=== PATIENT | male | born 1955 | race Caucasian/White ===

== ENCOUNTER → 2022-05-19 10:58 | Outpatient (BNVA) | payer SELFPAY | PROVIDERS: Visit Provider Physician Assistant | DX: Z02.79 Encounter for issue of other medical certificate (principal) ==

== ENCOUNTER 2023-03-22 10:58 | Outpatient (AMB) | payer MEDICARE, SELFPAY ==
--- NOTE | 2023-03-22 12:07 | MHC.OFFWIV ---
Intake Vital Signs 03/22/23 12:08 Height 5 ft 10 in Weight 199 lb BMI 28.6 BP 130/80 Blood Pressure Location Rt brachial Position Sitting Pulse 90 Temp 96.7 F L Temp Source Temporal Artery Scan Pulse Oximetry (%) 97 Oxygen Delivery Method Room Air Intake Visit Reasons: EP dog bite Rt calf Intake Note: pt is here today for dog bit on rt calf yesterday Patient Tobacco Use Status: Never used Tobacco Allergies No Known Allergies Allergy (Verified 03/22/23 12:08) Do you need a note to return to daycare/school/sports/work: No HPI HPI Comments History of Present Illness Details Patient is a 67-year-old male in today following a dog bite to his right calf. Patient states that the dog bite happened 1 day prior to arrival. Denies any tingling or numbness to the area, denies any erythema or recent fevers. The dog was his neighbor's dog that is reported to be up-to-date on all of its immunizations shots. Denies any nausea, vomiting, diarrhea, chest pain, or shortness of breath. Patient has a dime sized superficial laceration to the lateral aspect of the gastrocnemius muscle. No discharge from the wound. Edge of the wound or well demarcated. No erythema or edema. Will prescribe Bactrim and give Tdap in office. Patient has been educated on side effects of the medication, and that he should take the entire course of antibiotics. Patient has been educated and when to return to the ER when to present to the emergency room. [facility] Social History Patient Tobacco Use Status: Never used Tobacco Review of Systems Const All systems reviewed & are unremarkable except as noted in HPI and below Denies weakness Card Denies chest pain, Denies syncope, Denies rapid heart rate, Denies pedal edema and Denies dyspnea Resp Denies dyspnea GI Denies abdominal pain, Denies diarrhea, Denies nausea and Denies vomiting Musc Reports as per HPI and Denies tingling Skin/Breast Reports as per HPI Neuro Denies syncope, Denies tingling, Denies paresthesias and Denies weakness Physical Exam Vital Signs: Last Vital Signs Temp 96.7 F L 03/22/23 12:08 Pulse 90 03/22/23 12:08 BP 130/80 03/22/23 12:08 Pulse Ox 97 03/22/23 12:08 Oxygen Delivery Method Room Air 03/22/23 12:08 BMI result Body Mass Index 28.6 Vital signs have been reviewed and are stable Const General: cooperative and no acute distress Orientation/consciousness: patient oriented x3 Limitations: no limitations Resp Auscultation: clear to auscultation bilaterally Cardio Rate: regular rate Rhythm: regular rhythm Heart sounds: S1 normal heart sound present and S2 normal heart sound present Skin Trauma: laceration right lateral lower leg Neuro General: patient oriented x3 Extrem Right lower extremity: full ROM and foot (Pedal pulses +2); no edema Assessment & Plan Assessment & Plan (1) Dog bite: Code(s): W54.0XXA - Bitten by dog, initial encounter Qualifiers: Encounter type: initial encounter Qualified Code(s): W54.0XXA - Bitten by dog, initial encounter Plan Patient will be given Bactrim to be taken as prescribed. Patient was given in office Tdap shot. Patient states that he knows the dog in the ulnar and the dog is up-to-date on his vaccinations. He has been educated on the side effects of the medications. He has been educated to take the entire course of the antibiotics. He has been educated on signs of worsening symptoms and when to present to the walk-in or to present to the emergency room. The patient is agreeable to this plan. He has a PCP appointment in 2 days. Orders: Orders TDaP Immunization 03/22/23 Z23 - Encounter for immunization Medications: New sulfamethoxazole-trimethoprim 800-160 mg (Bactrim DS) 1 tab PO Q12H 20 tabs 0RF Coding Level of Care Code New Pt Level 3 (17472) Diagnoses Dog bite, initial encounter W54.0XXA Encounter type: initial encounter Time Spent (min) 15
[2023-03-22 12:08] VITALS: BP 130/80; PULSE 90; TEMP 35.9; O2SAT 97; BMI 28.6
== END 2023-03-22 12:47 | disposition home or self-care (01) ==
PROVIDERS: Visit Provider Nurse Practitioner Primary Care
DX: S81.811A Laceration without foreign body, right lower leg, initial encounter (principal); W54.0XXA Bitten by dog, initial encounter
CPT/HCPCS: 90471; 90715; 99203

== ENCOUNTER 2023-04-26 | Outpatient (REF) | payer MEDICARE, SELFPAY | END 2023-04-26 00:01 | disposition home or self-care (01) | LOC: HO.HMGCLNP | PROVIDERS: Visit Provider Nurse Practitioner Primary Care | DX: J06.9 Acute upper respiratory infection, unspecified (principal); Z11.52 Encounter for screening for COVID-19; Z20.828 Contact with and (suspected) exposure to other viral communicable diseases | CPT/HCPCS: 0241U ==

== ENCOUNTER 2023-04-26 12:22 | Outpatient (AMB) | payer MEDICARE, SELFPAY ==
[2023-04-26 15:15] VITALS: BP 122/62; PULSE 97; TEMP 36.4; O2SAT 98; BMI 28.4
--- NOTE | 2023-04-26 15:15 | MHC.OFFWIV ---
Intake Vital Signs 04/26/23 15:15 Height 5 ft 10 in Weight 198 lb BMI 28.4 BP 122/62 Blood Pressure Location Rt brachial Position Sitting Pulse 97 Pulse Source Pulse Oximeter Temp 97.5 F Temp Source Oral Pulse Oximetry (%) 98 Oxygen Delivery Method Room Air Intake Visit Reasons: EST/chest congestion([phone]) Intake Note: Pt is here today for chest congestion , pt states it started tuesday. Patient Tobacco Use Status: Never used Tobacco Allergies No Known Allergies Allergy (Verified 04/26/23 15:15) Do you need a note to return to daycare/school/sports/work: No HPI HPI Comments History of Present Illness Details Patient is a 67-year-old male in today with a sick visit. He states that he developed symptoms 5 days ago of cough, chest tightness, headache, and sore throat. Other members at his home are also sick. He will have not respiratory swab in office today. Denies nausea, vomiting, diarrhea, dizziness, chest pain, shortness a breath. PFSH Social History Patient Tobacco Use Status: Never used Tobacco Review of Systems Const Details: Constitutional : No Weight loss, No Fever, No Chills, Admits Fatigue, No Malaise ENT/Mouth : Admits sore throat, No Rhinorrhea Eyes: No Eye Pain, No Swelling, No Redness Cardiovascular : No Chest Pain, No SOB, No Dyspnea on Exertion, No Orthopnea, No Edema, No Palpitations Respiratory : Admits Cough, Admits Sputum, No Wheezing Gastrointestinal : No Nausea, No Vomiting, No Diarrhea, No Constipation, No abdominal Pain, No Hematochezia, No Melena Genitourinary : No Dysuria, No Urinary Frequency, No Hematuria, Musculoskeletal : No joint pain, Admits body Myalgias, No Joint Swelling Skin : No Skin Lesions, No rash Neuro : No Weakness, No Numbness, No Dizziness, No Headache Psych : No Anxiety/Panic, No Depression Heme/Lymph: No Bruising, No Bleeding,No Lymphadenopathy Endocrine : No Polyuria, No Polydipsia All other systems reviewed and are negative Physical Exam Vital Signs: Last Vital Signs Temp 97.5 F 04/26/23 15:15 Pulse 97 04/26/23 15:15 BP 122/62 04/26/23 15:15 Pulse Ox 98 04/26/23 15:15 Oxygen Delivery Method Room Air 04/26/23 15:15 BMI result Body Mass Index 28.4 Vital signs reviewed and stable Const Other: Appearance: Alert.? Oriented X3.? No acute distress.? Head: Normocephalic, atraumatic, no step-offs or deformities Eyes: Pupils equal, round and reactive to light.? ENT: Pharynx erythema. Neck: Normal inspection.? Neck supple.?Full ROM CVS: Normal heart rate and rhythm.? Pulses normal.? Respiratory: No respiratory distress.? Breath sounds diminished. ? Abdomen: Soft and nontender.? Skin: Skin warm and dry.? Normal skin color.? Normal skin turgor.? Neuro: Oriented X 3.? No motor deficit.? No sensory deficit. CN 2-12 intact Results Reviewed Results Reviewed: Will call patient with results. Assessment & Plan Assessment & Plan (1) Upper respiratory infection: Comment: Patient had respiratory swab in office. Will prescribe prednisone, benzonatate a common albuterol to be taken as prescribed and directed. He has been educated on side effects of the medication. He has been educated on signs of worsening symptoms and when to report back to the walk-in or when to present to the ED. Patient is agreeable to this plan. Code(s): J06.9 - Acute upper respiratory infection, unspecified Qualifiers: URI type: unspecified URI Qualified Code(s): J06.9 - Acute upper respiratory infection, unspecified Plan: Should follow-up with PCP Plan Take your medications as prescribed. If you were prescribed antibiotics today, it is important that you take your medication to their entirety, do not skip any doses, do not finish them early. Follow-up with your primary care provider this week. Return to the emergency department with new or worsening symptoms. Such as fevers, chills, chest pain, shortness of breath, nausea, vomiting, dizziness, headache, vision changes, lethargy In case of emergency call 911 Orders: Orders SARS-CoV2/FLU/RSV Today J06.9 - Acute upper respiratory infection, unspecified Medications: New prednisone 40 mg (2 x 20 mg) PO DAILY 10 tabs 0RF benzonatate 100 mg PO BID-TID PRN 30 caps 0RF cough albuterol sulfate 90 mcg/actuation 2 puffs inhalation Q6H PRN 6.7 grams 0RF shortness of breath or wheezing Coding Level of Care Code Est Pt Level 3 (69566) Diagnoses Upper respiratory tract infection, unspecified type J06.9 URI type: unspecified URI Time Spent (min) 30
== END 2023-04-26 15:53 | disposition home or self-care (01) ==
PROVIDERS: Visit Provider Nurse Practitioner Primary Care
DX: J06.9 Acute upper respiratory infection, unspecified (principal)
CPT/HCPCS: 99213

== ENCOUNTER 2023-05-10 11:34 | Outpatient (AMB) | payer MEDICARE, SELFPAY ==
--- NOTE | 2023-05-10 11:36 | AM.OFFWIN_ITS ---
Intake Vital Signs 05/10/23 11:41 Weight 204 lb BP 104/72 Blood Pressure Location Rt brachial Position Sitting Pulse 97 Pulse Source Pulse Oximeter Temp 97.9 F Temp Source Temporal Artery Scan Pulse Oximetry (%) 98 Oxygen Delivery Method Room Air Intake Visit Reasons: EP inflamed colon no bowel movement abdominal pain Intake Note: Pt is here c/o inflamed colon with abdominal pain since yesterday. Patient Tobacco Use Status: Never used Tobacco Allergies No Known Allergies Allergy (Verified 05/10/23 12:08) Medication List - Last Reconciled 05/10/23 by Duy Hernandes MD albuterol sulfate 90 mcg/actuation 2 puffs inhalation Q6H PRN allopurinol 100 mg PO DAILY ciprofloxacin HCl 250 mg PO BID lisinopril 10 mg PO DAILY HPI EP inflamed colon no bowel movement abdominal pain HPI Details 67 yr old male presents to the office fo r a sick visit. He has history of diverticulosis. Abd distention, constipation and nausea for the past three days. Passing small amounts of gas and small bowel movements. Cramping sensation in the lower abdomen. PFSH Social History Patient Tobacco Use Status: Never used Tobacco Physical Exam Vital Signs: Last Vital Signs Temp 97.9 F 05/10/23 11:41 Pulse 97 05/10/23 11:41 BP 104/72 05/10/23 11:41 Pulse Ox 98 05/10/23 11:41 Oxygen Delivery Method Room Air 05/10/23 11:41 Const General: cooperative and healthy appearing Nutritional Appearance: well nourished Orientation/consciousness: patient oriented x3 Limitations: no limitations HEENT Head: Yes normal to inspection Eyes General: appearance normal, both eyes and all related structures Neck Neck: Yes normal visual inspection Chest Chest palpation & inspection: normal palpation of entire chest wall Resp Effort & Inspection: normal respiratory effort Other: Abdomen: BS are sluggish. No organomegaly. Neuro General: patient oriented x3 Assessment & Plan Assessment & Plan (1) Abdominal pain: Code(s): R10.9 - Unspecified abdominal pain Plan: Xray images were personally revd by me. Constipation evident. Possibility of diverticulitis exists. Abx and stool softners suggested. If pain sx worsen to follow up here. Orders: Orders XR abdomen min 2V Today R10.9 - Unspecified abdominal pain Medications: New ciprofloxacin HCl 250 mg PO BID 14 tabs 0RF Coding Level of Care Code Est Pt Level 4 (48737) Diagnoses Abdominal pain R10.9
[2023-05-10 11:41] VITALS: BP 104/72; PULSE 97; TEMP 36.6; O2SAT 98
== END 2023-05-10 12:22 | disposition home or self-care (01) ==
PROVIDERS: Visit Provider Internal Medicine
DX: R10.9 Unspecified abdominal pain (principal)
CPT/HCPCS: 99214

== ENCOUNTER 2023-05-10 11:55 | Outpatient (REF) | payer MEDICARE, SELFPAY ==
--- NOTE | ~2023-05-10 | XR_ITS ---
EXAMINATION: XR ABDOMEN COMPLETE CLINICAL INDICATION: Unspecified abdominal pain COMPARISON: None available. TECHNIQUE: 2 views of the abdomen. FINDINGS: There is scattered stool and gas seen in colon without distention. A small round is density seen in the left epigastric region likely fundus shadow. There is no organomegaly. No radiopaque calculi. There is scattered phleboliths in the pelvis. XR/XR abdomen min 2V IMPRESSION: 1. Mild constipation. No acute process seen. 2. Small round density left epigastric region likely fundus shadow. .
== END 2023-05-10 11:56 | disposition home or self-care (01) ==
LOC: HO.HMGCX 11:55
PROVIDERS: Visit Provider Internal Medicine
DX: R10.9 Unspecified abdominal pain (principal)
CPT/HCPCS: 74019

== ENCOUNTER 2023-05-30 13:25 | Outpatient (REF) | payer MEDICARE, SELFPAY ==
[2023-05-30 16:15] LABS: Appearance Urine Clear; Color Urine Dark Yellow; Glucose Urine UA Negative (Negative); Leukocyte Esterase Urine Negative (Negative); Nitrite Urine Negative (Negative); Specific Gravity - Urine 1.015 (1.005-1.025); Urine Blood Negative (Negative); Urine Ketones Trace mg/dL (Negative); Urine Protein Negative (Neg-Trace)
[2023-05-30 16:30] LABS: MANUAL DIFF FLAG NO
[2023-05-30 16:59] LABS: Basophils Percent Auto 0.3 % (0-2); Eosinophils Absolute Auto 0.1 X10*3/uL (0.0-0.4); Eosinophils Percent Auto 1.2 % (0-4); Hematocrit 43.2 % (42.0-52.0); Imm Gran Abs Auto 0.03 X10*3/uL (0.00-0.03); Imm Gran Pct Auto 0.3 % (0.0-0.4); Lymphocytes Absolute Auto 3.1 X10*3/uL (1.2-4.9); Lymphocytes Percent Auto 34.1 % (20-40); Mean Corpuscular HGB Conc 34.7 g/dl (31.0-36.0); Mean Corpuscular Hemoglobin 32.7 pg (27.0-33.0); Mean Corpuscular Volume 94.1 fL (80.0-98.0); Mean Platelet Volume 10.4 fL (9.4-12.4); Monocytes Absolute Auto 0.9 X10*3/uL (0.1-1.2); Neutrophils Absolute Auto 4.9 x10*3/uL (2.0-8.3); Neutrophils Percent Auto 54.1 % (45-73); Platelet Count 215 X10*3/uL (160-400); Red Blood Count 4.59 X10*6/uL (4.60-5.80); Red Cell Distribution Width 12.8 % (11.0-16.0); White Blood Count 9.1 X10*3/uL (4.8-10.8)
[2023-05-30 17:17] LABS: Alanine Aminotransferase 32 U/L (0-40); Albumin Level 4.3 g/dL (3.5-5.0); Alkaline Phosphatase 54 U/L (39-117); Anion Gap 16 (12-20); Aspartate Amino Transferase 52 U/L (5-37); Bilirubin Total 0.5 mg/dL (0.0-1.0); Blood Urea Nitrogen 12 mg/dL (9-16); Calcium 9.9 mg/dL (8.4-10.2); Carbon Dioxide 19 mmol/L (22-29); Chloride 105 mmol/L (96-108); Cholesterol 258 mg/dL (<200); Estimated Glomerular Filt Rate > 60; Glucose Random 102 mg/dL (60-115); HDL Cholesterol 48 mg/dL (>40); LDL Cholesterol Calculated 169 mg/dL (<100); Sodium 136 mmol/L (135-145); Total Protein 7.7 g/dL (6.5-8.0); Triglycerides 205 mg/dL (<150)
[2023-05-30 17:55] LABS: CT PCR NOT DETECTED (Not Detect.); NG PCR NOT DETECTED (Not Detect.)
[2023-05-30 19:01] LABS: Reflex LDLD? No
[2023-05-31 08:00] LABS: ~HepC Num1 1.21 S/CO (0.00-0.79); ~Hepatitis C Antibody Reactive (Nonreactive)
[2023-05-31 15:52] LABS: HIV RNA PCR Qn Copies 337 copies/mL (NOT DETECTED); HIV RNA PCR Qn Log Copies 2.53 (NOT DETECTED)
[2023-06-01 08:58] LABS: Absolute CD3 Count 2478 cells/uL (840-3060); Absolute CD4 Count 1196 cells/uL (490-1740); Absolute CD8 Count 1292 cells/uL (180-1170); Absolute Lymphocytes 3162 cells/uL (850-3900); CD4 CD8 Ratio 0.93 (0.86-5.00); Percent CD3 Cells 78 % (57-85); Percent CD4 Cells 38 % (30-61); Percent CD8 Cells 41 % (12-42)
[2023-06-01 22:08] LABS: TS Negative Control Passed; TS Panel A 0; TS Panel B 0; TS Positive Control Passed; TSpotTB Negative (Negative)
[2023-06-02 09:03] LABS: RPR Rapid Plasma Reagin NON-REACTIVE (NON-REACTIVE)
[2023-06-02 18:24] LABS: HCV Log PCR <1.18 NOT DETECTED Log IU/mL (NOT DETECTED); HepC Viral Load <15 NOT DETECTED IU/mL (NOT DETECTED)
== END 2023-05-30 13:26 | disposition home or self-care (01) ==
LOC: HO.HHCL 13:25
PROVIDERS: Visit Provider Student in an Organized Health Care Education/Training Program
DX: Z21 Asymptomatic human immunodeficiency virus [HIV] infection status (principal)
CPT/HCPCS: 0353U; 36415; 80053; 80061; 81003; 85025; 86359; 86360; 86481; 86592; 86803; 87522; 87536

== ENCOUNTER 2023-07-18 12:46 | Outpatient (REF) | payer MEDICARE, SELFPAY ==
[2023-07-20 16:54] LABS: HIV RNA PCR Qn Copies 204 copies/mL (NOT DETECTED); HIV RNA PCR Qn Log Copies 2.31 (NOT DETECTED)
[2023-08-03 20:54] LABS: HIV 1 Integrase Proviral DNA DETECTED; HIV 1 PR RT Proviral DNA DETECTED
== END 2023-07-18 12:47 | disposition home or self-care (01) ==
LOC: HO.HHCL 12:46
PROVIDERS: Visit Provider Student in an Organized Health Care Education/Training Program
DX: Z21 Asymptomatic human immunodeficiency virus [HIV] infection status (principal)
CPT/HCPCS: 36415; 87536; 87900; 87901; 87906

== ENCOUNTER 2023-08-15 13:20 | Outpatient (REF) | payer MEDICARE, SELFPAY ==
[2023-08-29 20:38] LABS: HPV MRNA E6/E7 Rectal DETECTED
[2023-08-31 16:09] LABS: HPV 16 RNA, Rectal DETECTED; HPV 18/45 RNA Rectal NOT DETECTED
== END 2023-08-15 13:21 | disposition home or self-care (01) ==
LOC: HO.HHCLNP 13:20
PROVIDERS: Visit Provider Student in an Organized Health Care Education/Training Program
DX: Z11.51 Encounter for screening for human papillomavirus (HPV) (principal); Z21 Asymptomatic human immunodeficiency virus [HIV] infection status
CPT/HCPCS: 36415; 87624; 87625; 88112

== ENCOUNTER 2023-09-21 15:11 | Outpatient (REF) | payer MEDICARE, SELFPAY | END 2023-09-21 15:12 | disposition home or self-care (01) | LOC: HO.HHCL 15:11 | PROVIDERS: Visit Provider Internal Medicine | DX: Z13.89 Encounter for screening for other disorder (principal) ==

== ENCOUNTER 2023-09-22 12:08 | Outpatient (REF) | payer MEDICARE, SELFPAY ==
[2023-09-22 14:27] LABS: Alanine Aminotransferase 28 U/L (0-40); Albumin Level 4.4 g/dL (3.5-5.0); Alkaline Phosphatase 87 U/L (39-117); Anion Gap 14 (12-20); Aspartate Amino Transferase 49 U/L (5-37); Bilirubin Total 0.4 mg/dL (0.0-1.0); Blood Urea Nitrogen 17 mg/dL (9-16); Calcium 9.9 mg/dL (8.4-10.2); Carbon Dioxide 21 mmol/L (22-29); Chloride 109 mmol/L (96-108); Cholesterol 227 mg/dL (<200); Estimated Glomerular Filt Rate > 60; Glucose Random 110 mg/dL (60-115); HDL Cholesterol 40 mg/dL (>40); LDL Cholesterol Calculated 134 mg/dL (<100); Potassium 3.9 mmol/L (3.3-5.1); Sodium 140 mmol/L (135-145); Total Protein 7.8 g/dL (6.5-8.0); Triglycerides 269 mg/dL (<150)
[2023-09-22 14:44] LABS: Reflex LDLD? No
[2023-09-23 08:12] LABS: HBS Num1 1.41 mIU/mL (0-7.99); HBc Num1 0.08 S/CO (0.00-0.79); HBsAGNum1 0.36 S/CO (0.00-0.99); Hepatitis B Core Antibody Nonreactive (Nonreactive); Hepatitis B Surface Antigen Negative (Negative); ~Hepatitis B Surface Antibody NONREACTIVE (Nonreactive)
[2023-09-23 08:17] LABS: Hepatitis A Antibody IgG REACTIVE (Nonreactive); ~Hepatitis A Antibody IgG 3.24 S/CO (0.00-0.99)
[2023-09-23 14:38] LABS: HIV RNA PCR Qn Copies NOT DETECTED copies/mL (NOT DETECTED); HIV RNA PCR Qn Log Copies NOT DETECTED (NOT DETECTED)
[2023-09-23 21:44] LABS: Rubella IgG Antibody 9.54 Index; Rubeola IgG (Measles) >300.00 AU/mL
== END 2023-09-22 12:09 | disposition home or self-care (01) ==
LOC: HO.HHCL 12:08
PROVIDERS: Visit Provider Student in an Organized Health Care Education/Training Program
DX: B20 Human immunodeficiency virus [HIV] disease (principal)
CPT/HCPCS: 36415; 80053; 80061; 86704; 86706; 86708; 86735; 86762; 86765; 86787; 87340; 87536

== ENCOUNTER 2023-12-21 13:49 | Outpatient (REF) | payer MEDICARE, SELFPAY ==
--- NOTE | ~2023-12-21 | MM_ITS ---
EXAMINATION: BONE DENSITOMETRY CLINICAL INDICATION: Rule out osteoporosis. Bone pain. COMPARISON: This is the patient's baseline examination. TECHNIQUE: Using a [employer] DXA system (software version: 14.10) manufactured by [employer], dual-energy x-ray absorptiometry was performed of the lumbar spine and left hip. The images are of good technical quality. Summary results are attached. FINDINGS: LEFT FEMUR, NECK: BMD 1.062 g/cm2, Z-score 0.9, T-score -0.1, normal. LEFT FEMUR, TOTAL: BMD 1.051 g/cm2, Z-score 0.2, T-score -0.3, normal. AP SPINE L1-L3 (excluding L4): The data of L1-L4 has been changed to exclude the L4 vertebral body, because degenerative sclerosis at this level may cause overestimation of lumbar spine density. BMD 1.210 g/cm2, Z-score 0.2, T-score 0.0, normal. IDENTIFIED RISK FACTORS: Alcohol (3 or more units per day). HISTORY OF FRACTURE: None listed. MEDICATIONS: None listed. MM/XR DEXA axial skeleton IMPRESSION: 1. DIAGNOSIS: Normal bone density based on the lowest T-score value of -0.3 in the total femur applying World Health Organization criteria. 2. 10-YEAR FRACTURE RISK PREDICTION, FRAX: According to the guidelines, FRAX calculation should only be performed on patients in the osteopenia bone density category. Therefore, FRAX was not performed on this patient. 3. Treatment Recommendations: NOF guidelines recommend consideration for treatment in postmenopausal women and men age 50 and older presenting with the following: -A hip or vertebral (clinical or morphometric) fracture. -T-score less than or equal to -2.5 at the femoral neck or spine after appropriate evaluation to exclude secondary causes. -Low bone mass at the hip or spine and a 10-year fracture probability by FRAX of greater than or equal to 3% for hip fracture or greater than or equal to 20% for major osteoporotic fracture based on the [place] adapted WHO algorithm. 4. Other Recommendations: All treatment decisions require clinical judgment and consideration of individual patient factors, including patient preferences, comorbidities, previous drug use, risk factors not captured in the FRAX model (e.g. frailty, falls, vitamin D deficiency, increased bone turnover, interval significant decline in bone density) and possible under or overestimation of fracture risk by FRAX. FUTURE SCAN RECOMMENDATION: People with diagnosed cases of osteoporosis or at high risk for fracture should have regular bone mineral density tests. For patients eligible for Medicare, routine testing is allowed once every 2 years. The testing frequency can be increased to one year for patients who have rapidly progressing disease, those who are receiving or discontinuing medical therapy to restore bone mass, or have additional risk factors. Electronically signed by: Subhash Slater MD 12/27/2023 11:06 AM EDT
== END 2023-12-21 13:50 | disposition home or self-care (01) ==
LOC: HO.MAMMO 13:49
PROVIDERS: PCP Student in an Organized Health Care Education/Training Program; Visit Provider Student in an Organized Health Care Education/Training Program
DX: Z13.820 Encounter for screening for osteoporosis (principal); M85.89 Other specified disorders of bone density and structure, multiple sites
CPT/HCPCS: 77080

== ENCOUNTER 2024-03-20 11:05 | Outpatient (REF) | payer MEDICARE, SELFPAY ==
[2024-03-20 13:11] LABS: MANUAL DIFF FLAG NO
[2024-03-20 13:17] LABS: Basophils Percent Auto 0.5 % (0-2); Eosinophils Absolute Auto 0.2 X10*3/uL (0.0-0.4); Eosinophils Percent Auto 3.7 % (0-4); Hematocrit 43.5 % (42.0-52.0); Hemoglobin 14.9 g/dl (14.0-18.0); Imm Gran Abs Auto 0.01 X10*3/uL (0.00-0.03); Imm Gran Pct Auto 0.2 % (0.0-0.4); Lymphocytes Absolute Auto 1.9 X10*3/uL (1.2-4.9); Lymphocytes Percent Auto 29.6 % (20-40); Mean Corpuscular HGB Conc 34.3 g/dl (31.0-36.0); Mean Corpuscular Hemoglobin 31.4 pg (27.0-33.0); Mean Corpuscular Volume 91.8 fL (80.0-98.0); Mean Platelet Volume 10.6 fL (9.4-12.4); Monocytes Absolute Auto 0.8 X10*3/uL (0.1-1.2); Monocytes Percent Auto 12.1 % (2-11); Neutrophils Absolute Auto 3.5 x10*3/uL (2.0-8.3); Neutrophils Percent Auto 53.9 % (45-73); Platelet Count 173 X10*3/uL (160-400); Red Blood Count 4.74 X10*6/uL (4.60-5.80); White Blood Count 6.5 X10*3/uL (4.8-10.8)
[2024-03-20 13:26] LABS: Estimated Average Glucose 137 mg/dL; Hemoglobin A1C 175.5501 umol/L; Hemoglobin A1c % 6.4 % (<6.0); Total Hemoglobin (HGBA1C) 3784.7601 umol/L
[2024-03-20 13:35] LABS: Alanine Aminotransferase 44 U/L (0-40); Albumin Level 4.2 g/dL (3.5-5.0); Alkaline Phosphatase 82 U/L (39-117); Anion Gap 15 (12-20); Aspartate Amino Transferase 69 U/L (5-37); Bilirubin Total 0.7 mg/dL (0.0-1.0); Blood Urea Nitrogen 16 mg/dL (9-16); Calcium 9.5 mg/dL (8.4-10.2); Carbon Dioxide 18 mmol/L (22-29); Chloride 105 mmol/L (96-108); Estimated Glomerular Filt Rate > 60; Glucose Random 137 mg/dL (60-115); Potassium 3.8 mmol/L (3.3-5.1); Sodium 134 mmol/L (135-145); Total Protein 7.3 g/dL (6.5-8.0)
[2024-03-21 15:43] LABS: HIV RNA PCR Qn Copies 102 copies/mL (NOT DETECTED); HIV RNA PCR Qn Log Copies 2.01 (NOT DETECTED)
[2024-03-24 17:53] LABS: Absolute CD3 Count 1611 cells/uL (840-3060); Absolute CD4 Count 733 cells/uL (490-1740); Absolute CD8 Count 865 cells/uL (180-1170); Absolute Lymphocytes 1914 cells/uL (850-3900); CD4 CD8 Ratio 0.85 (0.86-5.00); Percent CD3 Cells 84 % (57-85); Percent CD4 Cells 38 % (30-61); Percent CD8 Cells 45 % (12-42)
== END 2024-03-20 11:06 | disposition home or self-care (01) ==
LOC: HO.HHCL 11:05
PROVIDERS: Visit Provider Student in an Organized Health Care Education/Training Program
DX: Z21 Asymptomatic human immunodeficiency virus [HIV] infection status (principal); Z13.1 Encounter for screening for diabetes mellitus
CPT/HCPCS: 36415; 80053; 83036; 85025; 86359; 86360; 87536

== ENCOUNTER → 2024-05-10 14:10 | Outpatient (BNVA) | payer SELFPAY | PROVIDERS: PCP Student in an Organized Health Care Education/Training Program; Visit Provider Physician Assistant Medical | DX: Z02.79 Encounter for issue of other medical certificate (principal) ==

== ENCOUNTER 2024-06-05 11:10 | Outpatient (REF) | payer OTHER, SELFPAY ==
--- OUTSIDE RECORDS SUMMARY | 2024-06-05 12:48 | XMS_ITS | Encounter Summary ---
Author Organization [facility] Address [address] [place] [address] Care Team Providers Care Senior It Assistant Name Role Phone Camilo Farrell MD Primary Care Provider Reason for Visit * Reason Onset Date Comments special procedure 04/09/2024 Encounter Details Date Type Department Care Team (Late st Contact Info) Description 04/09/2024 Telephone Gastroenterology - [place] [address] [facility] [address] [place] [address] Renaldo Saunders DO [address] [place] [address] special procedure Social History Tobacco Use Types Packs/Day Years Used Date Smoking Tobacco: Never Smokeless Tobacco: Never Alcohol Use Standard Drinks/Week Comments Yes 3 (1 standard drink = 0.6 oz pur e alcohol) Housing Instability Answer Date Recorde d Are you worried that in the next 2 months you may not have stable housing? No 03/27/2024 Food Access & Nutrition Answer Date Rec orded Do you have access to a vari ety of food including fruits and vegetables? Yes 03/27/2024 Access to Healthcare Answer Date Record ed Within the last 3 months, ho w many times did you visit the emergency department for your medical care? 0 03/27/2024 Health Literacy Answer Date Recorded How often do you need to hav e someone help you when you read instructions, pamphlets, or other written material from your doctor or pharmacy? Never 03/27/2024 Caregiver: How often do you need to have someone help you when you read instructions, pamphlets, or other written material from your doctor or pharmacy? Not on file 03/27/2024 Financial Risk Answer Date Recorded How hard is it for you to pa y for the very basics like food, housing, medical care, and air conditioning / heating? Not very hard 03/27/2024 Transportation Answer Date Recorded Has the lack of transportati on kept you from meetings, work, or from getting things needed for daily living? No Has the lack of transportati on kept you from medical appointments or from getting medications? No 03/27/2024 Social Isolation Answer Date Recorded How often do you feel lonely or isolated from th ose around you? Never 03/27/2024 Food Risk Answer Date Recorded Within the past 12 months we worried whether our food would run out before we got money to buy more. Never true 03/27/2024 Within the past 12 months th e food we bought just didn't last and we didn't have money to get more. Never true 03/27/2024 Dependent Care Answer Date Recorded Do you need help finding or paying for care for your loved ones. For example, child nurse or elderly care for an older adult? No 03/27/2024 Education Answer Date Recorded Do you think completing more education or training, like finishing a GED, going to college, or learning a trade, would be helpful for you? No 03/27/2024 Employment and Income Answer Date Recor ded During the last four weeks, have you been actively looking for work? No 03/27/2024 Living Situation Answer Date Recorded What is your living situation? 1 05/28/2023 Sex and Gender Information Value Date Recorded Sex Assigned at Not on file Legal Sex Male 9:51 AM EST Gender Identity Not on file Sexual Orientation Not on file documented as of this encounter Progress Notes * Majo Figueroa - 05/29/2024 1:56 PM EST SCHEDULED * Majo Figueroa - 04/09/2024 11:23 AM EST Spoke to patient, he will call when he feels better to reschedule * Laura Guevara - 04/09/2024 9:26 AM EST Pt has a procedure on 04/10 at 12:[address] Saunders but he needs to reschedule he has a bad chest cold. documented in this encounter Plan of Treatment Upcoming Encounters Date Type Department Care Team (Late st Contact Info) Description 06/25/2024 12:00 PM EST Office Visit Adult Medicine [facility] [address] [place] [address] Camilo Farrell MD [address] [place], [place] 06/25/2024 3:[address] [facility] [address] [place] [address] Hector Pradhan MD [address] [address] 07/18/2024 1:30 PM EDT Office Visit Orthopedic Surgery - [place] [address] [facility] [address] [place] [address] Adithya Rubio MD [address] [address] documented as of this encounter Visit Diagnoses Not on filedocumented in this encounter Care Teams Senior It Assistant Relationship Specialty Start Date End Date Camilo Farrell MD [address] [place] [address] PCP - General 07/28/22 documented as of this encounter
--- OUTSIDE RECORDS SUMMARY | 2024-06-05 12:48 | XMS_ITS | Clinical Summary ---
Author Organization [employer] Address [address] [place] [address] Care Team Providers Care Emergency Management Coordinator Name Role Phone Camilo Farrell MD Primary Care Provider Allergies No known active allergies Medications celecoxib (CeleBREX) 100 mg capsule TAKE 1 CAPSULE BY MOUTH 2 TIMES DAILY NEEDED FOR PAIN (TAKE WITH FOOD AND STAY HYDRATED). 4 Active acetaminophen (TYLENOL) 500 mg tablet Take 2 tablets (1,000 mg total) by mouth every 8 (eight) hours if needed. 4 Active elvitegravir-co bicistat-emtric itabine-tenofov ir alafenamide (Genvoya) 079-366-378-10 mg per tablet Take 1 tablet by mouth 1 (one) time each day. 3 Active pantoprazole (PROTONIX) 40 mg EC tablet TAKE 1 TABLET BY MOUTH EVERY DAY BEFORE BREAKFAST 90 tablet 1 4 Active polyethylene glycol (Golytely) 236-22.74-6.74 -5.86 gram solution Take 4L by mouth once for one dose. May substitue any PEG. Starting at 6PM the night before your procedure drink 1 8oz glasses at your own pace until you complete half of the gallon. Finish 2nd half of the gallon 5 hours before your procedure. 4000 mL 4 Active bisacodyL (DULCOLAX) 5 mg EC tablet Take 2 tablets by mouth right before beginning bowel prep. See instructions provided by the office 2 tablet 4 Active aspirin 81 mg chewable tablet Chew 1 tablet (81 mg total) 1 (one) time each day. Active lisinopriL (PRINIVIL,ZESTR IL) 10 mg tablet Take 1 tablet (10 mg total) by mouth 1 (one) time each day. 90 tablet 4 Active allopurinoL (ZYLOPRIM) 100 mg tablet Take 1 tablet (100 mg total) by mouth 1 (one) time each day. 180 tablet 4 Active Biktarvy 50-200-25 mg per tablet Take 1 tablet by mouth 1 (one) time each day. 4 Active albuterol HFA (PROAIR HFA ; PROVENTIL HFA ; VENTOLIN HFA) 90 mcg/actuation inhaler Inhale 2 puffs by mouth every 6 (six) hours if needed for shortness of breath. Active alclomethasone (ACLOVATE) 0.05 % cream Apply topically if needed. 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 24 Overview (03/27/2024): Right knee replacement in 2012, left knee replacement in june 2023 New onset type 2 diabetes mellitus 03/27/2024 Other hyperlipidemia 03/27/2024 Asymptomatic HIV infection, with no history of HIV-related illness 03/27/2024 History of hepatitis C 03/27/2024 Overview (03/27/2024): Completed treatment course. Viral loads have been negative Primary osteoarthritis of left knee 02/22/2023 Overview (03/27/2024): S/p left knee total replacement june 2023 Stage 3a chronic kidney disease 11/12/2022 Transaminitis 11/12/2022 Chronic gout without tophus 11/11/2022 Diverticulosis 11/11/2022 Primary hypertension 11/11/2022 Trigger finger, right ring finger 06/08/2021 Rosacea 05/28/2020 Skin lesion of left arm 03/12/2019 Anxiety 09/11/2018 Snoring 07/06/2017 Varicose veins of both lower extremities 017 Resolved Problems Problem Noted Date Diagnosed Date Resolved Date Hyponatremia 06/07/2021 03/27/2024 Diverticulitis of colon 11/27/2019 12/0 06/2023 Metabolic syndrome 03/12/2019 Elevated LDL cholesterol level 07/05/2016 03/27/2024 Overview (02/09/2024): (06/2017) 10-yr ASCVD risk ~ 18.3%; recommend statin. (02/2019) ~ 18.2%; recommend statin. (05/2021) 19.4%; declines statin. Last Assessment & Plan: Patient advised of reasons for treatment and LDL-C and the ASCVD risk treatment goal, advised to share concerns and any drug reactions. Outlined treatment goals, individual plan for lowering cholesterol and reviewed any barriers that may be present for patient to meet these goals. Reviewed medications and side effects. Dietary intervention and exercise were both described as being essential in the treatment of elevated cholesterol. The pt was reminded that regular exercise is essential to overall health and in some cases is just as important as the medications prescribed. Learning to make exercise a part of the daily routine, finding something enjoyable, and realizing that you don't have to do the same thing every day were covered as well. Last lab results were discussed: Lab Results Component Value Date CHOLTOT 243 (H) 03/12/2019 CHOLTOT 236 (H) 09/12/2018 CHOLTOT 249 (H) 07/06/2017 Lab Results Component Value Date HDL 51 03/12/2019 HDL 54 09/12/2018 HDL 39 (L) 07/06/2017 Lab Results Component Value Date LDLCALC 150 (H) 03/12/2019 LDLCALC 164 (H) 09/12/2018 LDLCALC 173 (H) 07/06/2017 Lab Results Component Value Date TRIG 254 (H) 03/12/2019 TRIG 79 09/12/2018 TRIG 201 (H) 07/06/2017 Lab Results Component Value Date CHOLHDLRATIO 4.8 03/12/2019 CHOLHDLRATIO 4.4 09/12/2018 CHOLHDLRATIO 6.4 (H) 07/06/2017 Lab Results Component Value Date AST 52 (H) 09/12/2018 AST 55 (H) 07/31/2018 AST 46 (H) 07/06/2017 Lab Results Component Value Date ALT 46 09/12/2018 ALT 33 07/31/2018 ALT 35 07/06/2017 The 10-year ASCVD risk score (Bryan BARRIENTOS Jr., et al., 2013) is: 19.4% Values used to calculate the score: Age: 64 years Sex: Male Is Non- : No Diabetic: No Tobacco smoker: No Systolic Blood Pressure: 135 mmHg Is BP treated: Yes HDL Cholesterol: 51 mg/dL Total Cholesterol: 243 mg/dL (06/2017) 10-yr ASCVD risk ~ 18.3%; recommend statin. (02/2019) ~ 18.2%; recommend statin. (05/2021) 19.4%; declines statin. Last Assessment & Plan: Patient advised of reasons for treatment and LDL-C and the ASCVD risk treatment goal, advised to share concerns and any drug reactions. Outlined treatment goals, individual plan for lowering cholesterol and reviewed any barriers that may be present for patient to meet these goals. Reviewed medications and side effects. Dietary intervention and exercise were both described as being essential in the treatment of elevated cholesterol. The pt was reminded that regular exercise is essential to overall health and in some cases is just as important as the medications prescribed. Learning to make exercise a part of the daily routine, finding something enjoyable, and realizing that you don't have to do the same thing every day were covered as well. Last lab results were discussed: Lab Results Component Value Date CHOLTOT 243 (H) 03/12/2019 CHOLTOT 236 (H) 09/12/2018 CHOLTOT 249 (H) 07/06/2017 Lab Results Component Value Date HDL 51 03/12/2019 HDL 54 09/12/2018 HDL 39 (L) 07/06/2017 Lab Results Component Value Date LDLCALC 150 (H) 03/12/2019 LDLCALC 164 (H) 09/12/2018 LDLCALC 173 (H) 07/06/2017 Lab Results Component Value Date TRIG 254 (H) 03/12/2019 TRIG 79 09/12/2018 TRIG 201 (H) 07/06/2017 Lab Results Component Value Date CHOLHDLRATIO 4.8 03/12/2019 CHOLHDLRATIO 4.4 09/12/2018 CHOLHDLRATIO 6.4 (H) 07/06/2017 Lab Results Component Value Date AST 52 (H) 09/12/2018 AST 55 (H) 07/31/2018 AST 46 (H) 07/06/2017 Lab Results Component Value Date ALT 46 09/12/2018 ALT 33 07/31/2018 ALT 35 07/06/2017 The 10-year ASCVD risk score (Bryan BARRIENTOS Jr. et al., 2013) is: 19.4% Values used to calculate the score: Age: 64 years Sex: Male Is Non- : No Diabetic: No Tobacco smoker: No Systolic Blood Pressure: 135 mmHg Is BP treated: Yes HDL Cholesterol: 51 mg/dL Total Cholesterol: 243 mg/dL Hyperuricemia 07/05/2016 03/27/2024 Prediabetes 07/05/2016 03/27/2024 Overview (02/09/2024): Last Assessment & Plan: Patient advised of reasons for treatment and HgbA1c goal, advised to share any concerns. Outlined treatment goals, individual plan for pre-diabetes and reviewed any barriers that may be present for patient to meet these goals. Reminded of the need for an annual flu shot. Lab Results Component Value Date HGBA1C 5.8 (H) 03/12/2019 HGBA1C 5.7 (H) 09/12/2018 HGBA1C 5.4 07/06/2017 The 10-year ASCVD risk score (Bryan BARRIENTOS Jr., et al., 2013) is: 16% Values used to calculate the score: Age: 64 years Sex: Male Is Non- : No Diabetic: No Tobacco smoker: No Systolic Blood Pressure: 120 mmHg Is BP treated: Yes HDL Cholesterol: 51 mg/dL Total Cholesterol: 243 mg/dL Pt given handouts and recommended to visit [email or web address] Last Assessment & Plan: Patient advised of reasons for treatment and HgbA1c goal, advised to share any concerns. Outlined treatment goals, individual plan for pre-diabetes and reviewed any barriers that may be present for patient to meet these goals. Reminded of the need for an annual flu shot. Lab Results Component Value Date HGBA1C 5.8 (H) 03/12/2019 HGBA1C 5.7 (H) 09/12/2018 HGBA1C 5.4 07/06/2017 The 10-year ASCVD risk score (Bryan BARRIENTOS Jr., et al., 2013) is: 16% Values used to calculate the score: Age: 64 years Sex: Male Is Non- : No Diabetic: No Tobacco smoker: No Systolic Blood Pressure: 120 mmHg Is BP treated: Yes HDL Cholesterol: 51 mg/dL Total Cholesterol: 243 mg/dL Pt given handouts and recommended to visit [email or web address] Overweight (BMI 25.0-29.9) 07/01/2016 1 05/28/2023 Overview (02/09/2024): Last Assessment & Plan: Hugo Alejandro's Body mass index is 28.7 kg/m??. The patient and I had thoughtful discussion on weight reduction. Several realistic goals were discussed and these goals will be reviewed at next visit. Barriers to reaching these goals were also discussed with the patient. The patient was encouraged be realistic in terms of weight reduction and realize that modest degrees of weight loss can have important health benefits. Encouraged not start a weight loss program unless willing to make it a long-term effort, since weight loss and re-gain could be more harmful than maintaining body weight and avoiding weight gain. Dietary intervention and exercise were both described as being essential in the treatment of being overweight. Specifically decrease consumption of simple sugars, fats, processed foods and alcohol, maintain proper portion sizes and increase fiber intake and water while avoiding drinking calories. The pt was reminded that regular exercise is essential to overall health and in some cases is just as important as the medications prescribed. Learning to make exercise a part of the daily routine, finding something enjoyable, and realizing that you don't have to do the same thing every day were covered as well. Last Assessment & Plan: Hugo Alejandro's Body mass index is 28.7 kg/m??. The patient and I had thoughtful discussion on weight reduction. Several realistic goals were discussed and these goals will be reviewed at next visit. Barriers to reaching these goals were also discussed with the patient. The patient was encouraged be realistic in terms of weight reduction and realize that modest degrees of weight loss can have important health benefits. Encouraged not start a weight loss program unless willing to make it a long-term effort, since weight loss and re-gain could be more harmful than maintaining body weight and avoiding weight gain. Dietary intervention and exercise were both described as being essential in the treatment of being overweight. Specifically decrease consumption of simple sugars, fats, processed foods and alcohol, maintain proper portion sizes and increase fiber intake and water while avoiding drinking calories. The pt was reminded that regular exercise is essential to overall health and in some cases is just as important as the medications prescribed. Learning to make exercise a part of the daily routine, finding something enjoyable, and realizing that you don't have to do the same thing every day were covered as well. Encounters Date Type Department Care Team Description 04/19/2024 2:30 PM EST Office Visit Orthopedic Surgery - [place] [address] [facility] [address] [place] [address] Adithya Rubio MD Status post total left knee replacement (Primary Dx); Weakness of left quadriceps muscle 04/09/2024 Telephone Gastroenterology - [place] [address] [facility] 175 [facility] [address] [place] [address] Renaldo Saunders, special procedure 03/29/2024 Telephone Adult Medicine [address] [phone] Camilo Farrell MD 03/27/2024 8:30 AM EST Office Visit Adult Medicine [address] [phone] Camilo Farrell MD Annual physical exam (Primary Dx); New onset type 2 diabetes mellitus (CMS/HCC); Idiopathic chronic gout without tophus, unspecified site; Primary hypertension; Depression screening negative; Status post bilateral knee replacements; Stage 3a chronic kidney disease (CMS/HCC); Primary osteoarthritis of left knee; Other hyperlipidemia; Gastroesophageal reflux disease without esophagitis; Asymptomatic HIV infection, with no history of HIV-related illness (CMS/HCC); Screening for prostate cancer; History of hepatitis C; Need for hepatitis B screening test; Encounter for vitamin deficiency screening 03/21/2024 3:30 PM EST Treatment [facility] - [place] 175 [facility] [address] [place] [phone] JoshuaRoselynNikolas, PT Left knee pain, unspecified chronicity (Primary Dx); Presence of left artificial knee joint; Atrophy of muscle of left thigh; Patellar instability of left knee 03/14/2024 5:30 PM EST Treatment [facility] 175 [facility] [address] [place] [phone] Joshua Nikolas, PT Left knee pain, unspecified chronicity (Primary Dx) 03/05/2024 6:00 PM EST Treatment [facility] 175 [facility] [address] [place] [phone] Joshua, Nikolas, PT Presence of left artificial knee joint (Primary Dx); Atrophy of muscle of left thigh; Patellar instability of left knee from Last 3 Months Immunizations Name Administration Dates Next Due Influenza trivalent, 0.5mL (Fluad) 65yo and olde r 03/24/2023 [employer] SARS-CoV-2 COVID-19, mRNA, LNP-S, preservative free 07/14/2020,06/24/2020 Pneumococcal conjugate 13 va lent (Prevnar 13, PCV13) 2mo and older 09/11/2018 Pneumococcal polysaccharide 23 valent (Pneumovax 23) 2yo and older 03/12/2019,09/01/2007 Tdap Tetanus diptheria acell ular pertussis (Boostrix; Adacel) 7yo and older 03/22/2023,01/17/2012 Surgical History Surgery Date Site/Laterality Comments COLONOSCOPY PROCEDURE: HISTORICAL COLONOSCOPY; COMMENT: 2019 per patient OTHER SURGICAL HISTORY PROCEDURE: HISTORY OTHER; COMMENT: right knee replacement 2012 OTHER SURGICAL HISTORY PROCEDURE: HISTORY OTHER; COMMENT: left fifth amputation due to trauma Medical History Medical History Date Comments HTN (hypertension) DX:HTN (hyper tension) Diverticulitis of colon 11/27/2019 Prediabetes 07/05/2016 Last Assessment & Plan: Patient advised of reasons for treatment and HgbA1c goal, advised to share any concerns. Outlined treatment goals, individual plan for pre-diabetes and reviewed any barriers that may be present for patient to meet these goals. Reminded of the need for an annual flu shot. Lab Results Component Value Date HGBA1C 5.8 (H) 03/12/2019 HGBA1C 5.7 (H) 09/12/ Metabolic syndrome 03/12/2019 Hyponatremia 06/07/2021 Social History Tobacco Use Types Packs/Day Years Used Date Smoking Tobacco: Never Smokeless Tobacco: Never Tobacco Cessation:Counseling Given: Not Answered Alcohol Use Standard Drinks/Week Comments Yes 3 [...] care for your loved ones. For example, childrens club attendant or elderly care for an older adult? [...] on file Sexual Orientation Not on file Obstetrics History Last Filed Vital Signs Vital Sign Reading Time Taken Comments Blood Pressure 120/78 03/27/2024 8:34 AM EST Pulse 98 03/27/2024 8:34 AM EST Temperature 36.1 ??C (97 ??F) 03/27/2024 8:34 AM EST Respiratory Rate 16 03/27/2024 8:34 AM EST Oxygen Saturation 98% 03/27/2024 8:34 AM EST Inhaled Oxygen Concentration - - Weight 95.3 kg (210 lb) 04/03/2024 11:00 AM EST Height 177.8 cm (5' 10 ) 04/03/2024 11:00 AM EST Body Mass Index 30.13 04/03/2024 11:00 AM EST Plan of Treatment Upcoming Encounters Date Type Department Care Team (Late st Contact Info) Description 06/25/2024 12:00 PM EST Office Visit Adult Medicine [facility] [address] [place] [address] Camilo Farrell MD [address] [place], [place] 06/25/2024 3:00 PM EST Appointment [facility] Endoscopy [address] [place] [address] Hector Pradhan MD [address] [address] 07/18/2024 1:30 PM EDT Office Visit Orthopedic Surgery [facility] [address] [facility] [address] [place] [phone] Adithya Rubio MD 175 [facility] [address] [place] [address] Health Maintenance Due Date Last Done Comments Diabetes: Annual Foot Exam 1965 Diabetes: Annual Retina Eye Exam 1965 Hepatitis A Vaccines (1 of 2 - Risk 2-dose series) 1972 Zoster Vaccines (1 of 2) 1972 Hepatitis B Vaccines (1 of 3 - Risk 3-dose series) 2013 RSV Immunization Patients 60+ Years Old (1 - Risk 60-74 years 1-dose series) 2013 COVID-19 Vaccine (3 - Pfizer risk series) 08/11/2020 07/14/2020, 06/24/2020 Colorectal Cancer Screening: Colonoscopy 05/27/2022 Medicare Annual Wellness Visit 05/27/2022 Diabetes: Blood Sugar Control Test (HGBA1C) 09/26/2024 03/28/2024, 11/03/2023, 11/03/2023 Depression Screening 03/27/2025 03/27/2024, 06/15/19 22 Falls Risk Assessment 03/27/2025 03/27/2024 Social Influencers of Health Screening 03/27/2025 03/27/2024 Diabetes: Annual Urine Albumin-Creatinine Ratio (uACR) 03/28/2025 03/28/2024, 03/24/2023 Diabetes: Annual GFR (Glomerular Filtration Rate) 03/28/2025 03/28/2024, 11/03/2023, 11/03/2023, Additional history exists Hypertension/CHF/CAD Annual BMP Blood Test 03/28/2025 03/28/2024, 11/03/2023, 11/03/2023, Additional history exists Meningococcal ACWY Vaccine (3 - Risk 2-dose series) 11/27/2028 11/28/2023, 08/15/2023 Cholesterol Screening (Lipid Panel) 03/28/2029 03/28/2024, 11/03/2023, 11/03/2023 DTaP,Tdap,and Td Vaccines (4 - Td or Tdap) 03/22/2033 03/22/2023, 01/17/2012, 10/24/2006 Hepatitis C Screening Completed 03/24/2023 Pneumococcal Vaccine: 50+ Years Completed 08/15/2023, 03/12/2019, 09/11/2018, Additional history exists Influenza Vaccine Completed 03/19/2024, , 03/12/2019, Additional history exists HIB Vaccines Aged Out No longer eligi ble based on patient's age to complete this topic HPV Vaccines Aged Out No longer eligi ble based on patient's age to complete this topic IPV Vaccines Aged Out No longer eligi ble based on patient's age to complete this topic MMR Vaccines Discontinued Meningococcal B Vacine Aged Out No lo nger eligible based on patient's age to complete this topic RSV Immunization Patients Under 20 months Aged Out No longer eligible based on patient's age to complete this topic Varicella Vaccines Aged Out No longer eligible based on patient's age to complete this topic Procedures Procedure Name Priority Date/Time Associated Diagnosis Comments HEPATITIS A ANTIBODY IGM Routine 03/28/2024 10:13 AM EST Asymptomatic HIV infection, with no history of HIV-related illness (CMS/HCC) History of hepatitis C PHOSPHORUS Routine 03/28/2024 10:13 AM EST Stage 3a chronic kidney disease (CMS/HCC) VITAMIN D 25 HYDROXY Routine 03/28/2024 10:13 AM EST Stage 3a chronic kidney disease (CMS/HCC) PARATHYROID HORMONE INTACT Routine 03/28/2024 10:13 AM EST Stage 3a chronic kidney disease (CMS/HCC) URIC ACID Routine 03/28/2024 10:13 AM EST Idiopathic chronic gout without tophus, unspecified site HEPATITIS B CORE ANTIBODY, TOTAL Routine 03/28/2024 10:13 AM EST Asymptomatic HIV infection, with no history of HIV-related illness (CMS/HCC) History of hepatitis C Need for hepatitis B screening test HEPATITIS B SURFACE ANTIBODY Routine 03/28/2024 10:13 AM EST Asymptomatic HIV infection, with no history of HIV-related illness (CMS/HCC) History of hepatitis C Need for hepatitis B screening test HEPATITIS A ANTIBODY TOTAL WITH REFLEX IGM Routine 03/28/2024 10:13 AM EST Asymptomatic HIV infection, with no history of HIV-related illness (CMS/HCC) History of hepatitis C PROSTATE SPECIFIC ANTIGEN SCREEN Routine 03/28/2024 10:13 AM EST Screening for prostate cancer HEMOGLOBIN A1C Routine 03/28/2024 10:13 AM EST New onset type 2 diabetes mellitus (CMS/HCC) COMPREHENSIVE METABOLIC PANEL Routine 03/28/2024 10:13 AM EST New onset type 2 diabetes mellitus (CMS/HCC) MICROALBUMIN CREATININE URINE RATIO Routine 03/28/2024 10:13 AM EST New onset type 2 diabetes mellitus (CMS/HCC) LIPID PANEL WITH REFLEX TO DIRECT LDL Routine 03/28/2024 10:13 AM EST New onset type 2 diabetes mellitus (CMS/HCC) HEPATITIS C SCREENING Routine 03/24/2023 from Last 3 Months or Most Recently Relevant to Health Maintenance Results * Prostate specific antigen screen (03/28/2024 10:13 AM EST) PSA 1.38 0.00 - 4.00 ng/mL LAB CHEMISTRY METHOD 03/28/2024 12:44 PM EST [facility] Blood Venous blood specimen / Unknown Venipuncture / Unknown 03/28/2024 10:13 AM EST 03/28/2024 10:13 AM EST Narrative [facility] - 03/28/2024 12:44 PM EST The Siemens Advia Centaur Chemiluminescent Immunoassay is used. Results obtained with different assay methods or kits cannot be used interchangeably. Results cannot be interpreted as absolute evidence of the presence or absence of malignant disease. us Camilo Farrell MD LAB BLOOD ORDERABLES F inal Result [facility] [address] [place] [address], [place] [phone] * (ABNORMAL) Lipid panel with reflex to direct LDL (03/28/2024 10:13 AM EST) Cholesterol 245(H) 0 - 200 mg/dL LAB CHEMISTRY METHOD 03/28/2024 12:33 PM EST [facility] Triglycerides 252(H) 0 - 150 mg/dL LAB CHEMISTRY METHOD 03/28/2024 12:[address] [facility] HDL 36(L) >=40 mg/dL LAB CHEMISTRY METHOD 03/28/2024 12:[address] [facility] LDL Calculated 159(H) 0 - 100 mg/dL LAB CHEMISTRY METHOD 03/28/2024 12:[address] [facility] VLDL Cholesterol Chip 50.4 mg/dL LAB CHEMISTRY METHOD 03/28/2024 12:[address] [facility] Non HDL Chol. (LDL+VLDL) 209(H) <145 mg/dL LAB CHEMISTRY METHOD 03/28/2024 12:[address] [facility] Chol/HDL Ratio 6.8(H) 0.0 - 4.4 LAB CHEMISTRY METHOD 03/28/2024 12:[address] [facility] Blood Venous blood specimen / Unknown Venipuncture / Unknown 03/28/2024 10:13 AM EST 03/28/2024 10:13 AM EST us Camilo Farrell MD LAB BLOOD ORDERABLES F inal Result [facility] [address] [place] [address], [place] [phone] * (ABNORMAL) Hepatitis A antibody total with reflex IgM (03/28/2024 10:13 AM EST) [facility] Hep A Total Ab Positive( A) Negative LAB CHEMISTRY METHOD 03/28/2024 1:24 PM EST [facility] Blood Venous blood specimen / Unknown Venipuncture / Unknown 03/28/2024 10:13 AM EST 03/28/2024 10:13 AM EST Narrative [facility] - 03/28/2024 1:24 PM EST Over the counter supplements containing high doses of biotin may interfere with this assay. ??If interference is suspected, patients shoud be retested after refraining from biotin supplements for 72 hours. us Camilo Farrell MD LAB BLOOD ORDERABLES F inal Result Performing Organization Address [facility] Co de Phone Number [facility] [address] [place] [address], [place] [phone] * Hepatitis A antibody IgM (03/28/2024 10:13 AM EST) [facility] Hepatitis A Antibody IgM Negative Negative LAB CHEMISTRY METHOD 03/28/2024 2:31 PM EST [facility] Blood Venous blood specimen / Unknown Venipuncture / Unknown 03/28/2024 10:13 AM EST 03/28/2024 10:13 AM EST Narrative [facility] - 03/28/2024 2:31 PM EST Over the counter supplements containing high doses of biotin may interfere with this assay. ??If interference is suspected, patients shoud be retested after refraining from biotin supplements for 72 hours. us Camilo Farrell MD LAB BLOOD ORDERABLES F inal Result Performing Organization Address [facility]/ZIP Co de Phone Number [facility] [address] [place] [address], [place] [phone] * (ABNORMAL) Microalbumin creatinine urine ratio (03/28/2024 10:13 AM EST) [facility] Creatinine, Urine 200.0 mg/dL LAB CHEMISTRY METHOD 03/28/2024 1:[address] [facility] Microalb, Ur 67.1(H) 0.0 - 29.0 mg/L LAB CHEMISTRY METHOD 03/28/2024 1:[address] [facility] Microalb/Crea t Ratio 34(H) <30 mg/g creat LAB CHEMISTRY METHOD 03/28/2024 1:06 PM [facility] Urine Urine specimen obtained by clean catch procedure / Unknown Non-blood Collection / Unknown 03/28/2024 10:13 AM EST 03/28/2024 10:13 AM EST Camilo Farrell MD LAB URINE ORDERABLES F inal Result Performing Organization Address [facility]/ZIP Co de Phone Number [facility] [address] [place] [address], [place] [phone] * Hepatitis B core antibody, total (03/28/2024 10:13 AM EST) Pathologist [facility] Hep B Core Total Ab Negative Negative LAB CHEMISTRY METHOD 03/28/2024 1:[address] [facility] Blood Venous blood specimen / Unknown Venipuncture / Unknown 03/28/2024 10:13 AM EST 03/28/2024 10:13 AM EST Camilo Farrell MD LAB BLOOD ORDERABLES F inal Result Performing Organization Address City/[facility]/ZIP Co de Phone Number [facility] [address] [place] [address], [place] [phone] * (ABNORMAL) Vitamin D 25 hydroxy (03/28/2024 10:13 AM EST) Vit D, 25-Hydroxy 28.1(L) 30.0 - 80.0 ng/mL LAB CHEMISTRY METHOD 03/28/2024 12:[address] [facility] Blood Venous blood specimen / Unknown Venipuncture / Unknown 03/28/2024 10:13 AM EST 03/28/2024 10:13 AM EST us Camilo Farrell MD LAB BLOOD ORDERABLES F inal Result Performing Organization Address [facility] Co de Phone Number [facility] [address] [place] [address], [place] [phone] * Hepatitis B surface antibody (03/28/2024 10:13 AM EST) Hepatitis B Surface Ab Negative Negative LAB CHEMISTRY METHOD 03/28/2024 12:38 PM EST [facility] Hepatitis B Surface Ab Quantitative <3.1 mIU/mL LAB CHEMISTRY METHOD 03/28/2024 12:38 PM EST [facility] Blood Venous blood specimen / Unknown Venipuncture / Unknown 03/28/2024 10:13 AM EST 03/28/2024 10:13 AM EST Narrative [facility] - 03/28/2024 12:38 PM EST >=10 mIU/mL is considered to be consistent with immunity. us Camilo Farrell MD LAB BLOOD ORDERABLES F inal Result Performing Organization Address City/[facility]/ZIP Co de Phone Number [facility] [address] [place] [address], [place] [phone] * Uric acid (03/28/2024 10:13 AM EST) Uric Acid 5.9 3.7 - 9.2 mg/dL LAB CHEMISTRY METHOD 03/28/2024 12:31 PM EST [facility] Blood Venous blood specimen / Unknown Venipuncture / Unknown 03/28/2024 10:13 AM EST 03/28/2024 10:13 AM EST Camilo Farrell MD LAB BLOOD ORDERABLES F inal Result [facility] [address] [place] [address], [place] [phone] * Phosphorus (03/28/2024 10:13 AM EST) Phosphorus 3.1 2.5 - 4.5 mg/dL LAB CHEMISTRY METHOD 03/28/2024 12:31 PM EST [facility] Blood Venous blood specimen / Unknown Venipuncture / Unknown 03/28/2024 10:13 AM EST 03/28/2024 10:13 AM EST Camilo Farrell MD LAB BLOOD ORDERABLES F inal Result Performing Organization Address [facility]/ZIP Co de Phone Number [facility] [address] [place] [address], * Parathyroid hormone intact (03/28/2024 10:13 AM EST) PTH 39.0 18.5 - 88.0 pcg/mL LAB CHEMISTRY METHOD 03/28/2024 12:45 PM EST [facility] Blood Venous blood specimen / Unknown Venipuncture / Unknown 03/28/2024 10:13 AM EST 03/28/2024 10:13 AM EST Camilo Farrell MD LAB BLOOD ORDERABLES F inal Result [facility] [address] [place] [address], [place] [phone] * Hemoglobin A1c (03/28/2024 10:13 AM EST) Hemoglobin A1C 5.9 <6.5 % LAB CHEMISTRY METHOD 03/28/2024 2:08 PM EST [facility] Mean Bld Glu Estim. 123 mg/dL LAB CHEMISTRY METHOD 03/28/2024 2:[address] [facility] Blood Venous blood specimen / Unknown Venipuncture / Unknown 03/28/2024 10:13 AM EST 03/28/2024 10:13 AM EST us Camilo Farrell MD LAB BLOOD ORDERABLES F inal Result [facility] [address] [place] [address], [place] [phone] * (ABNORMAL) Comprehensive metabolic panel (03/28/2024 10:13 AM EST) Sodium 136 133 - 145 mmol/L LAB CHEMISTRY METHOD 03/28/2024 12:[address] [facility] Potassium 4.1 3.5 - 5.5 mmol/L LAB CHEMISTRY METHOD 03/28/2024 12:[address] [facility] Chloride 106 96 - 110 mmol/L LAB CHEMISTRY METHOD 03/28/2024 12:[address] [facility] CO2 20(L) 21 - 32 mmol/L LAB CHEMISTRY METHOD 03/28/2024 12:[address] [facility] Anion Gap 10 3 - 11 LAB CHEMISTRY METHOD 03/28/2024 12:[address] [facility] Glucose 125(H) 70 - 100 mg/dL LAB CHEMISTRY METHOD 03/28/2024 12:[address] [facility] BUN 19 5 - 25 mg/dL LAB CHEMISTRY METHOD 03/28/2024 12:[address] [facility] Creatinine 1.27 0.70 - 1.30 mg/dL LAB CHEMISTRY METHOD 03/28/2024 12:[address] [facility] eGFR 61 >=60 mL/min/1. 73m2 LAB CHEMISTRY METHOD 03/28/2024 12:[address] [facility] Comment:Calculation based on the??Chronic Kidney Disease Epidemiology Collaboration (CKD-EPI) equation refit??without adjustment for race. BUN/Creatinine Ratio 15.0 LAB CHEMISTRY METHOD 03/28/2024 12:[address] [facility] Calcium 9.8 8.5 - 10.5 mg/dL LAB CHEMISTRY METHOD 03/28/2024 12:[address] [facility] AST (SGOT) 77(H) 10 - 42 unit/L LAB CHEMISTRY METHOD 03/28/2024 12:[address] [facility] ALT (SGPT) 45 10 - 60 unit/L LAB CHEMISTRY METHOD 03/28/2024 12:[address] [facility] Alkaline Phosphatase 99 42 - 121 unit/L LAB CHEMISTRY METHOD 03/28/2024 12:[address] [facility] Total Protein 7.7 6.0 - 8.0 g/dL LAB CHEMISTRY METHOD 03/28/2024 12:[address] [facility] Albumin 4.0 3.2 - 5.0 g/dL LAB CHEMISTRY METHOD 03/28/2024 12:[address] [facility] Total Bilirubin 0.5 0.0 - 1.4 mg/dL LAB CHEMISTRY METHOD 03/28/2024 12:[address] [facility] Blood Venous blood specimen / Unknown Venipuncture / Unknown 03/28/2024 10:13 AM EST 03/28/2024 10:13 AM EST Camilo Farrell MD LAB BLOOD ORDERABLES F inal Result [facility] [address] [place] [address], * Hepatitis C Screening (03/24/2023) [facility] Hepatitis C Screening abstracted Historical Provider HEALTH MAINTENANCE Final Result from Last 3 Months or Most Recently Relevant to Health Maintenance Insurance [employer] MED[employer]ARE ADVANTAGE Advance Directives Documents on File Type Date Recorded 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
--- OUTSIDE RECORDS SUMMARY | 2024-06-05 12:48 | XMS_ITS ---
Author Name [facility] Organization Unknown History of Medication Use Medication Directions Dispensed Refills Start Date End Date Stat azithromycin (ZITHROMAX) 250 MG tablet Take 2 tabs PO on day one and one tabs on days 2-5 #6 07/31/2022 active lisinopril (PRINIVIL,ZeSTRIL) 5 MG tablet Take 5 mg by mouth daily. 01/18/2022 aborted proMETHAZINE-dextrom ethorphan (proMETHAZINE-DM) 6.25-15 MG/5ML syrup Take 5 mL by mouth 4 times daily (every 6 hours) as needed for cough. 02/26/2022 active benzonatate (TESSALON) 200 MG capsule Take 1 capsule (200 mg total) by mouth 3 (three) times a day as needed for cough. 02/12/2022 02/20/2022 active lisinopril (PRINIVIL,ZeSTRIL) 10 MG tablet Take 10 mg by mouth daily. 05/22/2021 active elvitegravir-cobicis uzd-tutwwvuszldho-hh nofovir alafenamide (Genvoya) [phone] mg tablet Take 1 tablet by mouth daily. 06/15/2021 06/16/2022 active nystatin (MYCOSTATIN) 101632 UNIT/GM cream APPLY CREAM TOPICALLY TWICE DAILY FOR 2 WEEKS NEEDED (MIX 50/50 WITH ALCLOMETASONE) 12/31/2021 active valACYclovir (VALTREX) 1000 MG tablet TAKE 1 TABLET BY MOUTH TWICE DAILY FOR 5 DAYS 12/27/2021 active mupirocin (BACTROBAN) 2 % ointment APPLY OINTMENT TOPICALLY TO OPEN WOUND TWICE DAILY NEEDED UP TO 2-3 WEEKS 01/05/2022 active albuterol (PROVENTIL HFA; VENTOLIN HFA) 108 (90 Base) MCG/ACT inhaler Inhale 2 puffs every 4 (four) hours as needed for wheezing or shortness of breath. 07/20/2021 02/26/2022 active Problems Problem Status Onset Date Problem Type Date of Resolution Source Essential hypertension active 2019-04-02 ProblemAct [facility] Statin declined active 2017-07-07 ProblemAct [facility] Diverticulitis of colon active 2019-11-27 ProblemAct [facility] Varicose veins of both lower extremities active 2016-07-01 ProblemAct [facility] Diverticulitis active EncounterDiagnosisAct [facility] Anxiety active 2018-09-11 ProblemAct [facility] Hyperuricemia active 2016-07-05 ProblemAct [facility] T Trigger finger, right ring finger active 2021-06-08 ProblemAct [facility] HIV (human immunodeficiency virus infection) active 2016-07-01 ProblemAct [facility] Rosacea active 2020-05-28 ProblemAct [facility] Snoring active 2017-07-06 ProblemAct [facility] Hyponatremia active 2021-06-07 ProblemAct [facility] Elevated LDL cholesterol level active 2016-07-05 ProblemAct [facility] Metabolic syndrome active 2019-03-12 ProblemAct [facility] Overweight (BMI 25.0-29.9) active 2016-07-01 ProblemAct [facility] Pre-diabetes active 2016-07-05 ProblemAct [facility]
--- OUTSIDE RECORDS SUMMARY | 2024-06-05 12:48 | XMS_ITS | Encounter Summary ---
Author Organization [facility] Address [address] [place] [address] Care Team Providers Care Neck Fitter Name Role Phone Unknown Primary Care Provider [phone] Encounter Details Date Type Department Care Team (Late st Contact Info) Description 05/24/2022 Telephone [facility] [address] [place] [address] Keven Alaniz PA [address] [place] [address] Social History Tobacco Use Types Packs/Day Years Used Date Smoking Tobacco: Never Assessed Sex and Gender Information Value Date Recorded Sex Assigned at Not on file Gender Identity Not on file Sexual Orientation Not on file documented as of this encounter Plan of Treatment Not on file documented as of this encounter Visit Diagnoses Not on filedocumented in this encounter Care Teams Neck Fitter Relationship Specialty Start Date End Date Unknown Unknow Provider Address PCP - General 01/18/22 documented as of this encounter
--- OUTSIDE RECORDS SUMMARY | 2024-06-05 12:48 | XMS_ITS | Clinical Summary ---
Author Organization [facility] Address [address] [place] [address] Care Team Providers Care Oven Worker Name Role Phone Unknown Primary Care Provider [phone] Allergies No known active allergies Medications Medication Sig Dispensed Refills Start Date End Date Status PARoxetine (PAXIL) 40 MG tablet Take 40 mg by mouth every morning. Active allopurinol (ZYLOPRIM) 100 mg tablet Take 100 mg by mouth daily. Active alclometasone (ACLOVATE) 0.05 % cream APPLY CREAM TOPICALLY TO AFFECTED AREA TWICE DAILY FOR 2 WEEKS THEN NEEDED FOR FLARE UPS (MIX 50/50 WITH NYSTATIN CREAM) 12/31/2021 Active elvitegravir-cobici stat-emtricitabine- tenofovir alafenamide (Genvoya) [phone] mg tablet Take 1 tablet by mouth daily. 06/15/2021 Active ketoconazole (NIZORAL) 2 % shampoo 01/12/2022 Active lidocaine (XYLOCAINE) 2 % solution 5 mL by Transmucosal route. 05/12/2021 Active lisinopril (PRINIVIL,ZeSTRIL) 10 MG tablet Take 10 mg by mouth daily. 05/22/2021 Active mupirocin (BACTROBAN) 2 % ointment APPLY OINTMENT TOPICALLY TO OPEN WOUND TWICE DAILY NEEDED UP TO 2-3 WEEKS 01/05/2022 Active nystatin (MYCOSTATIN) 155882 UNIT/GM cream APPLY CREAM TOPICALLY TWICE DAILY FOR 2 WEEKS NEEDED (MIX 50/50 WITH ALCLOMETASONE) 12/31/2021 Active valACYclovir (VALTREX) 1000 MG tablet TAKE 1 TABLET BY MOUTH TWICE DAILY FOR 5 DAYS 12/27/2021 Active benzonatate (TESSALON) 200 MG capsuleIndications: Acute cough Take 1 capsule (200 mg total) by mouth 3 (three) times a day as needed for cough. 21 capsule 02/12/2022 Active ibuprofen (MOTRIN) 200 MG tabletIndications:F ever, unspecified fever cause Take 1 tablet (200 mg total) by mouth 4 times daily (every 6 hours) as needed for fever. 30 tablet 02/12/2022 Active proMETHAZINE-dextro methorphan (proMETHAZINE-DM) 6.25-15 MG/5ML syrupIndications:Ac [place] bronchitis with bronchospasm Take 5 mL by mouth 4 times daily (every 6 hours) as needed for cough. 120 mL 02/26/2022 Active albuterol (PROVENTIL HFA; VENTOLIN HFA) 108 (90 Base) MCG/ACT inhalerIndications: Acute bronchitis with bronchospasm Inhale 2 puffs every 4 (four) hours as needed for wheezing or shortness of breath. 1 each 02/26/2022 Active predniSONE (DELTASONE) 20 MG tabletIndications:A cute gout of left foot, unspecified cause Take 3 tablets for 3 days, then 2 tablets for 3 days, and then 1 tablet for 3 days. Take with food. 18 tablet 05/21/2022 Active azithromycin (ZITHROMAX) 250 MG tabletIndications:D iverticulitis Take 2 tabs PO on day one and one tabs on days 2-5 #6 6 tablet 07/31/2022 Active Active Problems Problem Noted Date Diagnosed Date Trigger finger, right ring finger 06/08/2021 Hyponatremia 06/07/2021 Rosacea 05/28/2020 Diverticulitis of colon 11/27/2019 Essential hypertension 04/02/2019 Overview (01/18/2022): Last Assessment & Plan: Vitals: 06/14/19 1417 BP: 135/89 Pulse: 88 Resp: 14 Temp: 97.7 ??F (36.5 ??C) SpO2: 96% Discussed importance of good blood pressure control and harmful effects of abnormal blood pressure. Discussed side effects of medications. Emphasized importance of healthy diet and exercise. The pt was reminded that regular exercise is essential to overall health and in some cases is just as important as the medications prescribed. Learning to make exercise a part of the daily routine, finding something enjoyable, and realizing that you don't have to do the same thing every day were covered as well. Outlined treatment goals, individual plan for elevated blood pressure and reviewed any barriers that may be present for patient to meet these goals. Lab Results Component Value Date BUN 18 09/12/2018 BUN 16 07/31/2018 BUN 18 07/06/2017 Lab Results Component Value Date CREATININE 0.93 09/12/2018 CREATININE 0.98 07/31/2018 CREATININE 0.98 07/06/2017 Lab Results Component Value Date EGFRNONA 86 09/12/2018 EGFRNONA 81 07/31/2018 EGFRNONA 81 07/06/2017 Lab Results Component Value Date EGFR 99 09/12/2018 EGFR 93 07/31/2018 EGFR 94 07/06/2017 The 10-year ASCVD risk score (Bryan BARRIENTOS Jr., et al., 2013) is: 19.4% Values used to calculate the score: Age: 64 years Sex: Male Is Non- : No Diabetic: No Tobacco smoker: No Systolic Blood Pressure: 135 mmHg Is BP treated: Yes HDL Cholesterol: 51 mg/dL Total Cholesterol: 243 mg/dL Metabolic syndrome 03/12/2019 Anxiety 09/11/2018 Statin declined 07/07/2017 Snoring 07/06/2017 Elevated LDL cholesterol level 07/05/2016 Overview (01/18/2022): (06/2017) 10-yr ASCVD risk ~ 18.3%; recommend [...] mg/dL Total Cholesterol: 243 mg/dL Hyperuricemia 07/05/2016 Pre-diabetes 07/05/2016 Overview (01/18/2022): Last Assessment & Plan: Patient advised of [...] Pt given handouts and recommended to visit [email or web address] HIV (human immunodeficiency virus infection) 12/2016 Overweight (BMI 25.0-29.9) 07/01/2016 Overview (01/18/2022): Last Assessment & Plan: Hugo Alejandro's Body [...] thing every day were covered as well. Varicose veins of both lower extremities 017 Immunizations Name Administration Dates Next Due Influenza, Quadrivalent (FLU ARIX, AFLURIA, FLULAVAL, FLUZONE) Preservative Free IM 03/12/2019,02/10/2015,02/13/2014,01/16 Pneumococcal Conjugate 13-Valent 09/11/2018 Pneumococcal Conjugate, Unspecified 09/01/2007 Pneumococcal Polysaccharide 23-Valent 03/12/2019 ,09/01/2007 Td 10/24/2006 Tdap 01/17/2012 Social History Tobacco Use Types Packs/Day Years Used Date Smoking Tobacco: Never Assessed Sex and Gender Information Value Date Recorded Sex Assigned at Not on file Gender Identity Not on file Sexual Orientation Not on file Last Filed Vital Signs Vital Sign Reading Time Taken Comments Blood Pressure 122/76 07/31/2022 1:58 PM EDT Pulse 124 07/31/2022 1:58 PM EDT Temperature 36.7 ??C (98 ??F) 07/31/2022 1:58 PM EDT Respiratory Rate 16 02/12/2022 2:34 PM EDT Oxygen Saturation 95% 07/31/2022 1:58 PM EDT Inhaled Oxygen Concentration - - Weight 90.7 kg (200 lb) 07/31/2022 1:58 PM EDT Height 177.8 cm (5' 10 ) 02/26/2022 2:53 PM EDT Body Mass Index 28.7 02/26/2022 2:53 PM EDT Plan of Treatment Health Maintenance Due Date Last Done Comments Hepatitis C Virus Screening 1955 Zoster (Shingles) Vaccine (1 of 2) 1972 Colonoscopy 1998 Hepatitis B Vaccines (1 of 3 - Risk 3-dose series) 2013 RSV Vaccine 60 years and old er and Patients (1 - Risk 60-74 years 1-dose series) 2013 COVID-19 Vaccine (3 - Pfizer risk series) 08/11/2020 07/14/2020, 06/24/2020 DTaP/Tdap/Td Vaccines (2 - T d or Tdap) 01/16/2022 01/17/2012, 10/24/2006 Influenza Vaccine 11/24/2023 03/12/2019, , 02/13/2014, Additional history exists Pneumococcal Vaccines 50+ Completed 2018, 09/11/2018, 09/01/2007, Additional history exists Care Teams Oven Worker Relationship Specialty Start Date End Date Unknown Unknow Provider Address PCP - General 01/18/22
--- OUTSIDE RECORDS SUMMARY | 2024-06-05 12:48 | XMS_ITS | Clinical Summary ---
Author Organization [facility] Address [address] [place] [address] Care Team Providers Care Farm Equipment Maintenance Supervisor Name Role Phone Unavailable Primary Care Provider Unavailabl e Medications No known medications Active Problems Problem Noted Date Diagnosed Date Trigger finger, right ring finger 03/02/2022 Social History Tobacco Use Types Packs/Day Years Used Date Smoking Tobacco: Never Assessed Sex and Gender Information Value Date Recorded Sex Assigned at Not on file Gender Identity Not on file Sexual Orientation Not on file Job Start Date Occupation Industry Not on file Not on file Not on file Plan of Treatment Health Maintenance Due Date Last Done Comments Hepatitis C Screening 1955 Depression Screening 1965 Preventative Health Evaluation 1971 Colon Cancer Screening (Colonoscopy) 1998 Shingrix-Zoster Vaccine (1 of 2) 2003 Fall Risk Assessment 2018 DTap / Tdap / Td (2 - Td or Tdap) 01/16/2022 01/17/2012, 10/24/2006 COVID-19 Vaccine ( season) 2023 07/14/2020, 06/24/2020 Influenza Vaccine (#1) 2023 9, 02/10/2015, 02/13/2014, Additional history exists RSV Adult > 60+ Yrs or (1 - 1-dose 75+ series) 2028 Pneumococcal Vaccine Completed 03/12/2019, 09/11/2018, 09/01/2007 Hepatitis B Vaccines Aged Out No long er eligible based on patient's age to complete this topic RSV Ped < 20 months Aged Out No longe r eligible based on patient's age to complete this topic Hugo Alejandro Personal/Family Self 1955 [address] [place] [address]
[2024-06-05 14:11] LABS: MANUAL DIFF FLAG NO
[2024-06-05 14:20] LABS: Basophils Absolute Auto 0.1 X10*3/uL (0.0-0.2); Basophils Percent Auto 0.7 % (0-2); Eosinophils Absolute Auto 0.3 X10*3/uL (0.0-0.4); Eosinophils Percent Auto 4.3 % (0-4); Hematocrit 43.4 % (42.0-52.0); Hemoglobin 14.9 g/dl (14.0-18.0); Imm Gran Abs Auto 0.02 X10*3/uL (0.00-0.03); Imm Gran Pct Auto 0.3 % (0.0-0.4); Lymphocytes Absolute Auto 2.5 X10*3/uL (1.2-4.9); Lymphocytes Percent Auto 35.1 % (20-40); Mean Corpuscular HGB Conc 34.3 g/dl (31.0-36.0); Mean Corpuscular Hemoglobin 31.2 pg (27.0-33.0); Monocytes Absolute Auto 0.8 X10*3/uL (0.1-1.2); Monocytes Percent Auto 10.8 % (2-11); Neutrophils Absolute Auto 3.5 x10*3/uL (2.0-8.3); Neutrophils Percent Auto 48.8 % (45-73); Platelet Count 171 X10*3/uL (160-400); Red Blood Count 4.77 X10*6/uL (4.60-5.80); Red Cell Distribution Width 12.9 % (11.0-16.0); White Blood Count 7.2 X10*3/uL (4.8-10.8)
[2024-06-05 14:31] LABS: Estimated Average Glucose 137 mg/dL; Hemoglobin A1C 181.7549 umol/L; Hemoglobin A1c % 6.4 % (<6.0); Total Hemoglobin (HGBA1C) 3906.4815 umol/L
[2024-06-05 15:35] LABS: Alanine Aminotransferase 51 U/L (0-40); Albumin Level 4.2 g/dL (3.5-5.0); Anion Gap 14 (12-20); Aspartate Amino Transferase 94 U/L (5-37); Bilirubin Total 0.7 mg/dL (0.0-1.0); Blood Urea Nitrogen 17 mg/dL (9-16); Calcium 9.3 mg/dL (8.4-10.2); Carbon Dioxide 19 mmol/L (22-29); Chloride 108 mmol/L (96-108); Cholesterol 217 mg/dL (<200); Estimated Glomerular Filt Rate > 60; Glucose Random 130 mg/dL (60-115); HDL Cholesterol 40 mg/dL (>40); LDL Cholesterol Calculated 142 mg/dL (<100); Potassium 4.1 mmol/L (3.3-5.1); Sodium 137 mmol/L (135-145); Total Protein 7.9 g/dL (6.5-8.0); Triglycerides 176 mg/dL (<150); Uric Acid 8.1 mg/dL (3.4-7.0)
[2024-06-05 15:38] LABS: PSA,Total (Free>4and<10) 1.05 ng/mL (0.00-4.00)
[2024-06-05 15:40] LABS: TSH reflex Free T4 0.93 uIU/mL (0.32-4.0)
[2024-06-05 17:28] LABS: Alkaline Phosphatase 82 U/L (39-117)
== END 2024-06-05 11:11 | disposition home or self-care (01) ==
LOC: HO.CHCLDS 11:10
PROVIDERS: Visit Provider Internal Medicine
DX: I10 Essential (primary) hypertension (principal); Z12.5 Encounter for screening for malignant neoplasm of prostate
CPT/HCPCS: 36415; 80053; 80061; 83036; 84153; 84443; 84550; 85025

== ENCOUNTER 2024-06-20 09:03 | Outpatient (REF) | payer OTHER, SELFPAY ==
--- OUTSIDE RECORDS SUMMARY | 2024-06-20 09:55 | XMS_ITS | Clinical Summary ---
Author Organization [facility] Address [address] [place] [address] Care Team Providers Care Orthopedic Shoes Salesperson Name Role Phone Unavailable Primary Care Provider [...] Personal/Family Self 1955 [address] [place] [address]
--- OUTSIDE RECORDS SUMMARY | 2024-06-20 09:56 | XMS_ITS | Clinical Summary ---
Author Organization [employer] Address [address] [place] [address] Care Team Providers Care Preform Machine Operator Name Role Phone Unavailable Primary Care Provider Unavailabl e Allergies No known active allergies Medications celecoxib (CeleBREX) 100 mg capsule TAKE 1 CAPSULE BY MOUTH 2 TIMES DAILY NEEDED FOR PAIN (TAKE WITH FOOD AND STAY HYDRATED). 4 Active acetaminophen (TYLENOL) 500 mg tablet Take 2 tablets (1,000 mg total) by mouth every 8 (eight) hours if needed. 4 Active elvitegravir-co bicistat-emtric itabine-tenofov ir alafenamide (Genvoya) 347-245-203-10 mg per tablet Take 1 tablet by [...] 1 (one) time each day. 90 tablet Active allopurinoL (ZYLOPRIM) 100 mg tablet Take 1 tablet (100 mg total) by mouth 1 (one) time each day. 180 tablet Active Biktarvy 50-200-25 mg per tablet Take 1 tablet by mouth 1 (one) time each day. Active albuterol HFA (PROAIR HFA ; PROVENTIL HFA ; VENTOLIN HFA) 90 mcg/actuation inhaler Inhale 2 puffs by mouth every 6 (six) hours if needed for shortness of breath. Active alclomethasone (ACLOVATE) 0.05 % cream Apply topically if needed. 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 Overview (03/27/2024): Right knee replacement in 2012, [...] Pt given handouts and recommended to visit [email or web address] Last Assessment & Plan: Patient advised [...] 5.4 07/06/2017 The 10-year ASCVD risk score (Auburn DC Jr., et al., 2013) is: 16% Values used to calculate the score: Age: 64 years Sex: Male Is Non- : No Diabetic: No Tobacco smoker: No Systolic Blood Pressure: 120 mmHg Is BP treated: Yes HDL Cholesterol: 51 mg/dL Total Cholesterol: 243 mg/dL Pt given handouts and recommended to visit [email or web address] Overweight (BMI 25.0-29.9) 07/01/2016 1 05/28/2023 [...] PM EST Office Visit Orthopedic Surgery - [place] 250 175 [facility] [address] [place] [phone] Adithya Rubio MD Status post total left knee replacement (Primary Dx); Weakness of left quadriceps muscle 04/09/2024 Telephone Gastroenterology - [place] 175 [facility] 175 [facility] 200 [place] [phone] Renaldo Saunders, DO special procedure 03/29/2024 Telephone Adult Medicine [address] [phone] Camilo Farrell MD 03/27/2024 8:30 AM EST Office Visit Adult Medicine [address] [phone] Camilo Farrell MD Annual physical exam (Primary [...] deficiency screening 03/21/2024 3:30 PM EST Treatment [facility] Rehabilitation - [place] 175 [facility] [address] [place] [phone] Joshua, Nikolas, PT Left knee pain, unspecified chronicity (Primary Dx); Presence of left artificial knee joint; Atrophy of muscle of left thigh; Patellar instability of left knee from Last 3 Months Immunizations Name Administration Dates Next Due Influenza trivalent, 0.5mL (Fluad) 65yo and olde r 03/24/2023 TCHO SARS-CoV-2 COVID-19, mRNA, LNP-S, preservative free 07/14/2020,06/24/2020 [...] for your loved ones. For example, child welfare consultant or elderly care for an older adult? [...] on file Sexual Orientation Not on file Travel History Travel Start Travel End [place] 06/07/2024 06/07/2024 Obstetrics History Last Filed Vital Signs Vital Sign Reading Time Taken Comments Blood Pressure 120/78 03/27/2024 8:34 AM EST Pulse 98 03/27/2024 8:34 AM EST Temperature 36.1 ??C (97 ??F) 03/27/2024 8:34 AM EST Respiratory Rate 16 03/27/2024 8:34 AM EST Oxygen Saturation 98% 03/27/2024 8:34 AM EST Inhaled Oxygen Concentration - - Weight 93 kg (205 lb) 06/15/2024 3:00 PM EST Height 177.8 cm (5' 10 ) 06/15/2024 3:00 PM EST Body Mass Index 29.41 06/15/2024 3:00 PM EST Plan of Treatment Upcoming Encounters Date Type Department Care Team (Late st Contact Info) Description 06/25/2024 3:00 PM EST Hospital Encounter [facility] Endoscopy [address] [place] [phone] Hector Pradhan MD [address] [address] 07/18/2024 1:30 PM EDT Office Visit Orthopedic Surgery - [place] 250 175 [facility] 250 [place] [phone] Adithya Rubio MD 175 [facility] [address] [place] [address] Health Maintenance Due Date Last Done Comments [...] 09/26/2024 03/28/2024, 11/03/2023, 11/03/2023 Depression Screening 03/27/2025 03/27/2024 Falls Risk Assessment 03/27/2025 03/27/2024 Social Influencers [...] LAB CHEMISTRY METHOD 03/28/2024 12:44 PM EST [facility] Blood Venous blood specimen / Unknown Venipuncture / Unknown 03/28/2024 10:13 AM EST 03/28/2024 10:13 AM EST Narrative [facility] - 03/28/2024 12:44 PM EST The Siemens Advia DriveFactoraur Chemiluminescent Immunoassay is used. Results obtained with different assay methods or kits cannot be used interchangeably. Results cannot be interpreted as absolute evidence of the presence or absence of malignant disease. us Camilo Farrell MD LAB BLOOD ORDERABLES F inal Result [facility] [address] [place] [address], [place] [phone] * (ABNORMAL) Lipid panel with reflex to direct LDL (03/28/2024 10:13 AM EST) Cholesterol 245(H) 0 - 200 mg/dL LAB CHEMISTRY METHOD 03/28/2024 12:33 PM EST [facility] Triglycerides 252(H) 0 - 150 mg/dL LAB CHEMISTRY METHOD 03/28/2024 12:33 PM EST [facility] HDL 36(L) >=40 mg/dL LAB CHEMISTRY METHOD 03/28/2024 12:33 PM EST [facility] LDL Calculated 159(H) 0 - 100 mg/dL LAB CHEMISTRY METHOD 03/28/2024 12:33 PM EST [facility] VLDL Cholesterol Chip 50.4 mg/dL LAB CHEMISTRY METHOD 03/28/2024 12:33 PM EST [facility] Non HDL Chol. (LDL+VLDL) 209(H) <145 mg/dL LAB CHEMISTRY METHOD 03/28/2024 12:33 PM EST [facility] Chol/HDL Ratio 6.8(H) 0.0 - 4.4 LAB CHEMISTRY METHOD 03/28/2024 12:33 PM EST [facility] Blood Venous blood specimen / Unknown Venipuncture / Unknown 03/28/2024 10:13 AM EST 03/28/2024 10:13 AM EST us Camilo Farrell MD LAB BLOOD ORDERABLES F inal Result Performing Organization Address [facility] de Phone Number [facility] [address] [place] [address], [place] [phone] * (ABNORMAL) Hepatitis A antibody total with reflex IgM (03/28/2024 10:13 AM EST) Hep A Total Ab Positive( A) Negative LAB CHEMISTRY METHOD 03/28/2024 1:24 PM EST [facility] Blood Venous blood specimen / Unknown Venipuncture / Unknown 03/28/2024 10:13 AM EST 03/28/2024 10:13 AM EST Narrative [facility] - 03/28/2024 1:24 PM EST Over the counter supplements containing high doses of biotin may interfere with this assay. ??If interference is suspected, patients shoud be retested after refraining from biotin supplements for 72 hours. us Camilo Farrell MD LAB BLOOD ORDERABLES F inal Result Performing Organization Address [facility]/ZIP Co de Phone Number [facility] [address] [place] [address], [place] [phone] * Hepatitis A antibody IgM (03/28/2024 10:13 AM EST) Pathologist [facility] Hepatitis A Antibody IgM Negative Negative LAB CHEMISTRY METHOD 03/28/2024 2:31 PM EST [facility] Blood Venous blood specimen / Unknown Venipuncture / Unknown 03/28/2024 10:13 AM EST 03/28/2024 10:13 AM EST Narrative [facility] - 03/28/2024 2:31 PM EST Over the counter supplements containing high doses of biotin may interfere with this assay. ??If interference is suspected, patients shoud be retested after refraining from biotin supplements for 72 hours. Camilo Farrell MD LAB BLOOD ORDERABLES F inal Result Performing Organization Address [facility]/ZIP Co de Phone Number [facility] [address] [place] [address], * (ABNORMAL) Microalbumin creatinine urine ratio (03/28/2024 10:13 AM EST) [facility] Creatinine, Urine 200.0 mg/dL LAB CHEMISTRY METHOD 03/28/2024 1:06 PM EST [facility] Microalb, Ur 67.1(H) 0.0 - 29.0 mg/L LAB CHEMISTRY METHOD 03/28/2024 1:06 PM EST [facility] Microalb/Crea t Ratio 34(H) <30 mg/g creat LAB CHEMISTRY METHOD 03/28/2024 1:06 PM EST [facility] Urine Urine specimen obtained by clean catch procedure / Unknown Non-blood Collection / Unknown 03/28/2024 10:13 AM EST 03/28/2024 10:13 AM EST us Camilo Farrell MD LAB URINE ORDERABLES F inal Result Performing Organization Address City/[facility]/ZIP Co de Phone Number [facility] [address] [place] [address], [place] [phone] * Hepatitis B core antibody, total (03/28/2024 10:13 AM EST) [facility] Hep B Core Total Ab Negative Negative LAB CHEMISTRY METHOD 03/28/2024 1:24 PM EST [facility] Blood Venous blood specimen / Unknown Venipuncture / Unknown 03/28/2024 10:13 AM EST 03/28/2024 10:13 AM EST us Camilo Farrell MD LAB BLOOD ORDERABLES F inal Result Performing Organization Address City/[facility]/ZIP Co de Phone Number [facility] [address] [place] [address], [place] [phone] * (ABNORMAL) Vitamin D 25 hydroxy (03/28/2024 10:13 AM EST) [facility] Vit D, 25-Hydroxy 28.1(L) 30.0 - 80.0 ng/mL LAB CHEMISTRY METHOD 03/28/2024 12:38 PM EST [facility] Blood Venous blood specimen / Unknown Venipuncture / Unknown 03/28/2024 10:13 AM EST 03/28/2024 10:13 AM EST us Camilo Farrell MD LAB BLOOD ORDERABLES F inal Result Performing Organization Address City/[facility]/ZIP Co de Phone Number [facility] [address] [place] [address], [place] [phone] * Hepatitis B surface antibody (03/28/2024 10:13 AM EST) [facility] Hepatitis B Surface Ab Negative Negative LAB CHEMISTRY METHOD 03/28/2024 12:38 PM EST [facility] Hepatitis B Surface Ab Quantitative <3.1 mIU/mL LAB CHEMISTRY METHOD 03/28/2024 12:38 PM EST [facility] Blood Venous blood specimen / Unknown Venipuncture / Unknown 03/28/2024 10:13 AM EST 03/28/2024 10:13 AM EST Narrative [facility] - 03/28/2024 12:38 PM EST >=10 mIU/mL is considered to be consistent with immunity. us Camilo Farrell MD LAB BLOOD ORDERABLES F inal Result Performing Organization Address City/[facility] Co de Phone Number [facility] [address] [place] [address], [place] [phone] * Uric acid (03/28/2024 10:13 AM EST) Pathologist [facility] Uric Acid 5.9 3.7 - 9.2 mg/dL LAB CHEMISTRY METHOD 03/28/2024 12:31 PM EST [facility] Blood Venous blood specimen / Unknown Venipuncture / Unknown 03/28/2024 10:13 AM EST 03/28/2024 10:13 AM EST us Camilo Farrell MD LAB BLOOD ORDERABLES F inal Result Performing Organization Address [facility] de Phone Number [facility] [address] [place] [address], [place] [phone] * Phosphorus (03/28/2024 10:13 AM EST) Pathologist [facility] Phosphorus 3.1 2.5 - 4.5 mg/dL LAB CHEMISTRY METHOD 03/28/2024 12:31 PM EST [facility] Blood Venous blood specimen / Unknown Venipuncture / Unknown 03/28/2024 10:13 AM EST 03/28/2024 10:13 AM EST us Camilo Farrell MD LAB BLOOD ORDERABLES F inal Result Performing Organization Address City/[facility]/ZIP Co de Phone Number [facility] [address] [place] [address], [place] [phone] * Parathyroid hormone intact (03/28/2024 10:13 AM EST) [facility] PTH 39.0 18.5 - 88.0 pcg/mL LAB CHEMISTRY METHOD 03/28/2024 12:45 PM EST [facility] Blood Venous blood specimen / Unknown Venipuncture / Unknown 03/28/2024 10:13 AM EST 03/28/2024 10:13 AM EST us Camilo Farrell MD LAB BLOOD ORDERABLES F inal Result Performing Organization Address City/[facility]/ZIP Co de Phone Number [facility] [address] [place] [address], [place] [phone] * Hemoglobin A1c (03/28/2024 10:13 AM EST) [facility] Hemoglobin A1C 5.9 <6.5 % LAB CHEMISTRY METHOD 03/28/2024 2:08 PM EST [facility] Mean Bld Glu Estim. 123 mg/dL LAB CHEMISTRY METHOD 03/28/2024 2:08 PM EST [facility] Blood Venous blood specimen / Unknown Venipuncture / Unknown 03/28/2024 10:13 AM EST 03/28/2024 10:13 AM EST us Camilo Farrell MD LAB BLOOD ORDERABLES F inal Result [facility] [address] [place] [address], [place] [phone] * (ABNORMAL) Comprehensive metabolic panel (03/28/2024 10:13 AM EST) [facility] Sodium 136 133 - 145 mmol/L LAB CHEMISTRY METHOD 03/28/2024 12:33 PM EST [facility] Potassium 4.1 3.5 - 5.5 mmol/L LAB CHEMISTRY METHOD 03/28/2024 12:[address] [facility] Chloride 106 96 - 110 mmol/L LAB CHEMISTRY METHOD 03/28/2024 12:[address] [facility] CO2 20(L) 21 - 32 mmol/L LAB CHEMISTRY METHOD 03/28/2024 12:[address] [facility] Anion Gap 10 3 - 11 LAB CHEMISTRY METHOD 03/28/2024 12:[address] [facility] Glucose 125(H) 70 - 100 mg/dL LAB CHEMISTRY METHOD 03/28/2024 12:[address] [facility] BUN 19 5 - 25 mg/dL LAB CHEMISTRY METHOD 03/28/2024 12:[address] [facility] Creatinine 1.27 0.70 - 1.30 mg/dL LAB CHEMISTRY METHOD 03/28/2024 12:[address] [facility] eGFR 61 >=60 mL/min/1. 73m2 LAB CHEMISTRY METHOD 03/28/2024 12:[address] [facility] Comment:Calculation based on the??Chronic Kidney Disease Epidemiology Collaboration (CKD-EPI) equation refit??without adjustment for race. BUN/Creatinine Ratio 15.0 LAB CHEMISTRY METHOD 03/28/2024 12:[address] [facility] Calcium 9.8 8.5 - 10.5 mg/dL LAB CHEMISTRY METHOD 03/28/2024 12:[address] [facility] AST (SGOT) 77(H) 10 - 42 unit/L LAB CHEMISTRY METHOD 03/28/2024 12:[address] [facility] ALT (SGPT) 45 10 - 60 unit/L LAB CHEMISTRY METHOD 03/28/2024 12:[address] [facility] Alkaline Phosphatase 99 42 - 121 unit/L LAB CHEMISTRY METHOD 03/28/2024 12:[address] [facility] Total Protein 7.7 6.0 - 8.0 g/dL LAB CHEMISTRY METHOD 03/28/2024 12:33 PM EST [facility] Albumin 4.0 3.2 - 5.0 g/dL LAB CHEMISTRY METHOD 03/28/2024 12:33 PM EST [facility] Total Bilirubin 0.5 0.0 - 1.4 mg/dL LAB CHEMISTRY METHOD 03/28/2024 12:33 PM EST [facility] Blood Venous blood specimen / Unknown Venipuncture / Unknown 03/28/2024 10:13 AM EST 03/28/2024 10:13 AM EST Camilo Farrell MD LAB BLOOD ORDERABLES F inal Result [facility] [address] [place] [address], [place] [phone] * Hepatitis C Screening (03/24/2023) Hepatitis C Screening abstracted Historical Provider HEALTH MAINTENANCE Final Result from Last 3 Months or Most Recently Relevant to Health Maintenance Insurance [employer] MED[employer]ARE ADVANTAGE Advance Directives Documents on File Type Date Recorded Patient Swine Nutritionist Expl anation Health Care Decision (hx) 07/20/2023 HE ALTH CARE PROXY Health Care Decision (hx) 07/20/2023 HE ALTH CARE PROXY Health Care Decision (hx) 07/20/2023 HE ALTH CARE PROXY
--- OUTSIDE RECORDS SUMMARY | 2024-06-20 09:56 | XMS_ITS | Encounter Summary ---
Author Organization [employer] Address [address] [place] [address] Care Team Providers Care Emg Technician Name Role Phone Camilo Farrell MD Primary Care Provider Reason for Visit * Reason Onset Date Comments special procedure 04/09/2024 Encounter Details Date Type Department Care Team (Late st Contact Info) Description 04/09/2024 Telephone Gastroenterology - [place] [address] [place] [address] [facility] [address] [place] [address] Renaldo Saunders DO [address] [place] [address] special procedure Social History Tobacco Use Types [...] care for your loved ones. For example, childcare teacher or elderly care for an older adult? [...] file Travel History Travel Start Travel End [place] 06/07/2024 06/07/2024 documented as of this encounter Progress Notes [...] Description 06/25/2024 3:00 PM EST Hospital Encounter [facility] Endoscopy [address] [place] [phone] Hector Pradhan MD 299 [facility] [address] [place] [address] 07/18/2024 1:30 PM EDT Office Visit Orthopedic Surgery - [place] 250 175 [facility] [address] [place] [address] Adithya Rubio MD 175 [facility] [address] [place] [address] documented as of this encounter Visit Diagnoses Not on filedocumented in this encounter Care Teams Emg Technician Relationship Specialty Start Date End Date Camilo Farrell MD [address] [place] [address] PCP - General 07/28/22 06/06/24 documented as of this encounter
--- OUTSIDE RECORDS SUMMARY | 2024-06-20 09:56 | XMS_ITS | Clinical Summary ---
Author Organization [facility] Address [address] [place] [address] Care Team Providers Care Safety And Occupational Health Manager Name Role Phone Unknown Primary Care Provider [phone] Allergies No known active allergies Medications Medication [...] 12/31/2021 Active elvitegravir-cobici stat-emtricitabine- tenofovir alafenamide (Genvoya) [phone] mg tablet Take 1 tablet by mouth [...] TO 2-3 WEEKS 01/05/2022 Active nystatin (MYCOSTATIN) 163111 UNIT/GM cream APPLY CREAM TOPICALLY TWICE DAILY [...] Active proMETHAZINE-dextro methorphan (proMETHAZINE-DM) 6.25-15 MG/5ML syrupIndications:Ac duckwater bronchitis with bronchospasm Take 5 mL by [...] Pt given handouts and recommended to visit [email or web address] HIV (human immunodeficiency virus infection) 12/2016 [...] 09/11/2018, 09/01/2007, Additional history exists Care Teams Safety And Occupational Health Manager Relationship Specialty Start Date End Date Unknown Unknow Provider Address PCP - General 01/18/22
[2024-06-20 11:14] LABS: MANUAL DIFF FLAG NO
[2024-06-20 11:18] LABS: Basophils Percent Auto 0.5 % (0-2); Eosinophils Absolute Auto 0.3 X10*3/uL (0.0-0.4); Eosinophils Percent Auto 4.4 % (0-4); Hematocrit 43.3 % (42.0-52.0); Hemoglobin 15.1 g/dl (14.0-18.0); Imm Gran Abs Auto 0.02 X10*3/uL (0.00-0.03); Imm Gran Pct Auto 0.3 % (0.0-0.4); Lymphocytes Absolute Auto 2.7 X10*3/uL (1.2-4.9); Lymphocytes Percent Auto 35.7 % (20-40); Mean Corpuscular HGB Conc 34.9 g/dl (31.0-36.0); Mean Corpuscular Hemoglobin 31.7 pg (27.0-33.0); Mean Corpuscular Volume 90.8 fL (80.0-98.0); Mean Platelet Volume 10.6 fL (9.4-12.4); Monocytes Absolute Auto 0.7 X10*3/uL (0.1-1.2); Monocytes Percent Auto 9.2 % (2-11); Neutrophils Absolute Auto 3.7 x10*3/uL (2.0-8.3); Neutrophils Percent Auto 49.9 % (45-73); Platelet Count 193 X10*3/uL (160-400); Red Blood Count 4.77 X10*6/uL (4.60-5.80); Red Cell Distribution Width 12.5 % (11.0-16.0); White Blood Count 7.5 X10*3/uL (4.8-10.8)
[2024-06-20 11:34] LABS: Alanine Aminotransferase 39 U/L (0-40); Albumin Level 4.1 g/dL (3.5-5.0); Alkaline Phosphatase 80 U/L (39-117); Anion Gap 12 (12-20); Aspartate Amino Transferase 73 U/L (5-37); Bilirubin Total 0.7 mg/dL (0.0-1.0); Blood Urea Nitrogen 12 mg/dL (9-16); Calcium 9.6 mg/dL (8.4-10.2); Carbon Dioxide 24 mmol/L (22-29); Chloride 107 mmol/L (96-108); Estimated Glomerular Filt Rate > 60; Glucose Random 120 mg/dL (60-115); Potassium 4.3 mmol/L (3.3-5.1); Sodium 139 mmol/L (135-145); Total Protein 7.7 g/dL (6.5-8.0)
[2024-06-21 19:58] LABS: HIV RNA PCR Qn Copies 160 copies/mL (NOT DETECTED)
[2024-06-24 18:33] LABS: Absolute CD3 Count 2239 cells/uL (840-3060); Absolute CD4 Count 1143 cells/uL (490-1740); Absolute CD8 Count 1080 cells/uL (180-1170); Absolute Lymphocytes 2673 cells/uL (850-3900); CD4 CD8 Ratio 1.06 (0.86-5.00); Percent CD3 Cells 84 % (57-85); Percent CD4 Cells 43 % (30-61); Percent CD8 Cells 40 % (12-42)
== END 2024-06-20 09:04 | disposition home or self-care (01) ==
LOC: HO.HHCL 09:03
PROVIDERS: Visit Provider Internal Medicine
DX: Z21 Asymptomatic human immunodeficiency virus [HIV] infection status (principal)
CPT/HCPCS: 36415; 80053; 85025; 86359; 86360; 87536

== ENCOUNTER 2024-07-10 13:54 | Outpatient (REF) | payer MEDICARE, SELFPAY ==
--- NOTE | 2024-07-10 13:57 | PFT_ITS ---
Flows: FEV1: 101 % of predicted at 3.30 L FVC: 101 % of predicted at 4.37 L FEV1/FVC: 75 % Bronchodilator response: Absent Volumes: Total lung capacity: 93 % of predicted at 6.84 L Residual volume: 86 % of predicted at 2.28 L Slow vital capacity: 98 % of predicted at 4.56 L Expiratory reserve volume: 59 % of predicted at 0.77 L Diffusion capacity: Normal Impression: No obstructive or restrictive ventilatory defect. No bronchodilator response. Decreased expiratory reserve volume suggests extrathoracic restriction likely secondary to abdominal obesity. MTDD
[2024-07-10 14:40] VITALS: PULSE 86
--- OUTSIDE RECORDS SUMMARY | 2024-07-10 16:35 | XMS_ITS | Clinical Summary ---
Author Organization [employer] Address [address] [place] [address] Care Team Providers Care Cloth Tearer Name Role Phone Adithya Johnson Primary Care Provide r Allergies No known active allergies Medications celecoxib (CeleBREX) 100 mg capsule TAKE 1 CAPSULE BY MOUTH 2 TIMES DAILY NEEDED FOR PAIN (TAKE WITH FOOD AND STAY HYDRATED). 4 Active acetaminophen (TYLENOL) 500 mg tablet Take 2 tablets (1,000 mg total) by mouth every 8 (eight) hours if needed. 4 Active elvitegravir-co bicistat-emtric itabine-tenofov ir alafenamide (Genvoya) [phone] mg per tablet Take 1 tablet by [...] Pt given handouts and recommended to visit [email or web address] 78 Last Assessment & Plan: Patient advised [...] handouts and recommended to visit [email or web address] 78 Overweight (BMI 25.0-29.9) 07/01/2016 1 05/28/2023 [...] Encounters Date Type Department Care Team Description 06/25/2024 3:01 PM EST Anesthesia Event [facility] Endoscopy [address] [place] [phone] Raulito Mcdaniel DO 06/25/2024 2:06 PM EST - 06/25/2024 11:59 PM EST Hospital Encounter [facility] Endoscopy [address] [place] [phone] Hector Pradhan MD Walsh, Michael, DO Swanson, Mona, CRNA Colon cancer screening Discharge Disposition: Home or Self Care 04/19/2024 2:30 PM EST Office Visit Orthopedic Surgery - [place] [address] 175 [facility] [address] [place] [phone] Adithya Rubio MD Status post total left knee replacement (Primary Dx); Weakness of left quadriceps muscle from Last 3 Months Immunizations Name Administration Dates Next Due Influenza trivalent, 0.5mL (Fluad) 65yo and olde r 03/24/2023 gripNote SARS-CoV-2 COVID-19, mRNA, LNP-S, preservative free 07/14/2020,06/24/2020 [...] HISTORY PROCEDURE: HISTORY OTHER; COMMENT: 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 For example, residential child care counselor or elderly care for an older adult? [...] What is your living situation? 1 05/28/2023 Interpersonal Safety Answer Date Record ed Physical Abuse 06/25/2024 Verbal Abuse 06/25/2024 Sex and Gender Information Value Date Recorded Sex Assigned at Male 06/22/2024 2:00 PM EST Legal Sex Male 9:51 AM EST Gender Identity Male 06/22/2024 2:00 PM EST Sexual Orientation Straight 06/22/2024 2: 01 PM EST Obstetrics History Last Filed Vital Signs Vital Sign Reading Time Taken Comments Blood Pressure 149/90 06/25/2024 3:49 PM EST Pulse 79 06/25/2024 3:49 PM EST Temperature 36.5 ??C (97.7 ??F) 06/25/2024 2:50 PM ES T Respiratory Rate 20 06/25/2024 3:49 PM EST Oxygen Saturation 98% 06/25/2024 3:49 PM EST Inhaled Oxygen Concentration - - Weight 90.7 kg (200 lb) 06/25/2024 2:50 PM EST Height 177.8 cm (5' 10 ) 06/25/2024 2:50 PM EST Body Mass Index 28.7 06/25/2024 2:50 PM EST Plan of Treatment Upcoming Encounters Date Type Department Care Team (Late st Contact Info) Description 07/18/2024 1:30 PM EDT Office Visit Orthopedic Surgery - [place] [address] [phone] Adithya Rubio MD [address] [address] Health Maintenance Due Date Last Done Comments [...] - Pfizer risk series) 08/11/2020 07/14/2020, 06/24/2020 Medicare Annual Wellness Visit 05/27/2022 Diabetes: Blood Sugar Control Test (HGBA1C) 09/26/2024 03/28/2024, 11/03/2023, 11/03/2023 Depression Screening 03/27/2025 03/27/2024 Social Influencers of Health Screening 03/27/2025 03/27/2024 Diabetes: Annual Urine Albumin-Creatinine Ratio (uACR) 03/28/2025 03/28/2024, 03/24/2023 Diabetes: Annual GFR (Glomerular Filtration Rate) 03/28/2025 03/28/2024, 11/03/2023, 11/03/2023, Additional history exists Hypertension/CHF/CAD Annual BMP Blood Test 03/28/2025 03/28/2024, 11/03/2023, 11/03/2023, Additional history exists Falls Risk Assessment 06/25/2025 06/25/2024, 024 Meningococcal ACWY Vaccine (3 - Risk 2-dose series) 11/27/2028 11/28/2023, 08/15/2023 Cholesterol Screening (Lipid Panel) 03/28/2029 03/28/2024, 11/03/2023, 11/03/2023 DTaP,Tdap,and Td Vaccines (4 - Td or Tdap) 03/22/2033 03/22/2023, 01/17/2012, 10/24/2006 Colorectal Cancer Screening: Colonoscopy 06/25/2034 06/25/2024 Hepatitis C Screening Completed 03/24/2023 Pneumococcal Vaccine: [...] on patient's age to complete this topic Medical Devices Implanted Type Area Continuity Coordinator Device Identifier Shelf Expiration Date Model / Serial / Lot Joints Knee Joints Knee Bilateral : Knee Procedures Procedure Name Priority Date/Time Associated Diagnosis Comments COLONOSCOPY Routine 06/25/2024 3:28 PM EST Colon cancer screening MICROALBUMIN CREATININE URINE RATIO Routine 03/28/2024 10:13 AM EST New onset type 2 diabetes mellitus (CMS/HCC) COMPREHENSIVE METABOLIC PANEL Routine 03/28/2024 10:13 AM EST New onset type 2 diabetes mellitus (CMS/HCC) HEMOGLOBIN A1C Routine 03/28/2024 10:13 AM EST New onset type 2 diabetes mellitus (CMS/HCC) LIPID PANEL WITH REFLEX TO DIRECT LDL Routine 03/28/2024 10:13 AM EST New onset type 2 diabetes mellitus (CMS/HCC) HEPATITIS C SCREENING Routine 03/24/2023 from Last 3 Months or Most Recently Relevant to Health Maintenance Results * COLONOSCOPY Anesthesia - MAC; [facility] ENDOSCOPY (06/25/2024 3:28 PM EST) Anatomical Region Laterality Modality Other 06/25/2024 2:52 PM EST Impressions 06/25/2024 3:26 PM EST - Diverticulosis in the left colon. ? - Non-bleeding internal hemorrhoids. ? - The examination was otherwise normal on direct and ? retroflexion views. ? - No specimens collected. Recommendation: ?- Discharge patient to home. ? - High fiber diet. ? - Continue present medications. ? - Return to GI clinic PRN. Narrative 06/25/2024 3:26 PM EST [facility] GI Patient Name: Hugo Alejandro Procedure Date: 06/25/2024 2:52 PM Date of : 1955 Age: 69 Room: ROOM 14 Gender: Male Note Status: Finalized Attending MD: Hector Pradhan MD, Procedure Date No Time: 06/25/2024 Procedure: ? Colonoscopy Indications: ? Screening for colorectal malignant neoplasm Providers: ? Hector Pradhan MD Referring MD: ?Hector Pradhan MD Medicines: ? Monitored Anesthesia Care Complications: ? No immediate complications. Estimated Blood Loss: ? Estimated blood loss: none. Procedure: ? Pre-Anesthesia Assessment: ? - ASA Grade Assessment: II - A patient with mild ? systemic disease. ? - After reviewing the risks and benefits, the patient ? was deemed in satisfactory condition to undergo the ? procedure. ? After I obtained informed consent, the scope was ? passed under direct vision. Throughout the procedure, ? the patient's blood pressure, pulse, and oxygen ? saturations were monitored continuously.The ? Colonoscope was introduced through the anus and ? advanced to the cecum, identified by appendiceal ? orifice and ileocecal valve. The colonoscopy was ? performed without difficulty. The patient tolerated ? the procedure well. The quality of the bowel ? preparation was good. Findings: ?Multiple small and large-mouthed diverticula were ? found in the left colon. ? Non-bleeding internal hemorrhoids were found during ? retroflexion. The hemorrhoids were medium- sized. ? The exam was otherwise without abnormality on direct ? and retroflexion views. Procedure Code(s): ? --- Professional --- ? G0121, Colorectal cancer screening; colonoscopy on ? individual not meeting criteria for high risk Diagnosis Code(s): ? --- Professional --- ? Z12.11, Encounter for screening for malignant neoplasm ? of colon CPT copyright 2020 [employer]. All rights reserved. The codes documented in this report are preliminary and upon outpatient coder review may be revised to meet current compliance requirements. Hector Pradhan MD 06/25/2024 3:26:15 PM This report has been signed electronically.Hector Pradhan MD Number of Addenda: 0 Note Initiated On: 06/25/2024 2:52 PM Scope In: Scope Out: ? Endoscopy Department at [facility] - [address] [place] [address], ? [place] [address] Procedure Note Hector Pradhan MD - 06/25/2024 [facility] GI Patient Name: Hugo Alejandro Procedure Date: 06/25/2024 2:52 PM Date of : 1955 Age: 69 Room: ROOM 14 Gender: Male Note Status: Finalized Attending MD: Hector Pradhan MD, Procedure Date No Time: 06/25/2024 Procedure: Colonoscopy Indications: Screening for colorectal malignant neoplasm Providers: Hector Pradhan MD Referring MD: Hector Pradhan MD Medicines: Monitored Anesthesia Care Complications: No immediate complications. Estimated Blood Loss: Estimated blood loss: none. Procedure: Pre-Anesthesia Assessment: - ASA Grade Assessment: II - A patient with mild systemic disease. - After reviewing the risks and benefits, thepatient was deemed in satisfactory condition to undergo the procedure. After I obtained informed consent, the scope was passed under direct vision. Throughout theprocedure, the patient's blood pressure, pulse, and oxygen saturations were monitored continuously.The Colonoscope was introduced through the anus and advanced to the cecum, identified by appendiceal orifice and ileocecal valve. The colonoscopy was performed without difficulty. The patient tolerated the procedure well. The quality of the bowel preparation was good. Findings: Multiple small and large-mouthed diverticula were found in the left colon. Non-bleeding internal hemorrhoids were found during retroflexion. The hemorrhoids were medium-sized. The exam was otherwise without abnormality ondirect and retroflexion views. Procedure Code(s): --- Professional --- G0121, Colorectal cancer screening; colonoscopy on individual not meeting criteria for high risk Diagnosis Code(s): --- Professional --- Z12.11, Encounter for screening for malignantneoplasm of colon CPT copyright 2020 [employer]. All rights reserved. The codes documented in this report are preliminary and upon outpatient coder reviewmay be revised to meet current compliance requirements. Hector Pradhan MD 06/25/2024 3:26:15 PM This report has been signed electronically.Hector Pradhan MD Number of Addenda: 0 Note Initiated On: 06/25/2024 2:52 PM Scope In: Scope Out: Endoscopy Department at [facility] - [address] [place] [phone] IMPRESSION: - Diverticulosis in the left colon. - Non-bleeding internal hemorrhoids. - The examination was otherwise normal on directand retroflexion views. - No specimens collected. Recommendation: - Discharge patient to home. - High fiber diet. - Continue present medications. - Return to GI clinic PRN. us Hector Pradhan MD GI~PROCEDURE ORDERABLES Final Result * (ABNORMAL) Lipid panel with reflex to direct LDL (03/28/2024 10:13 AM EST) Cholesterol 245(H) 0 - 200 mg/dL LAB CHEMISTRY METHOD 03/28/2024 12:33 PM [facility] Triglycerides 252(H) 0 - 150 mg/dL LAB CHEMISTRY METHOD 03/28/2024 12:33 PM [facility] HDL 36(L) >=40 mg/dL LAB CHEMISTRY METHOD 03/28/2024 12:33 PM [facility] LDL Calculated 159(H) 0 - 100 mg/dL LAB CHEMISTRY METHOD 03/28/2024 12:33 PM [facility] VLDL Cholesterol Chip 50.4 mg/dL LAB CHEMISTRY METHOD 03/28/2024 12:33 PM [facility] Non HDL Chol. (LDL+VLDL) 209(H) <145 mg/dL LAB CHEMISTRY METHOD 03/28/2024 12:33 PM [facility] Chol/HDL Ratio 6.8(H) 0.0 - 4.4 LAB CHEMISTRY METHOD 03/28/2024 12:33 PM [facility] Blood Venous blood specimen / Unknown Venipuncture / Unknown 03/28/2024 10:13 AM EST 03/28/2024 10:13 AM EST us Camilo Farrell MD LAB BLOOD ORDERABLES F inal Result Performing Organization Address [facility]/ZIP Co de Phone Number [facility] [address] [place] [address], [place] [phone] * (ABNORMAL) Microalbumin creatinine urine ratio (03/28/2024 10:13 AM EST) Creatinine, Urine 200.0 mg/dL LAB CHEMISTRY METHOD 03/28/2024 1:06 PM EST [facility] Microalb, Ur 67.1(H) 0.0 - 29.0 mg/L LAB CHEMISTRY METHOD 03/28/2024 1:06 PM EST [facility] Microalb/Crea t Ratio 34(H) <30 mg/g creat LAB CHEMISTRY METHOD 03/28/2024 1:06 PM EST [facility] Urine Urine specimen obtained by clean catch procedure / Unknown Non-blood Collection / Unknown 03/28/2024 10:13 AM EST 03/28/2024 10:13 AM EST Camilo Farrell MD LAB URINE ORDERABLES F inal Result Performing Organization Address [facility]/ZIP Co de Phone Number [facility] [address] [place] [address], [place] [phone] * Hemoglobin A1c (03/28/2024 10:13 AM EST) Hemoglobin A1C 5.9 <6.5 % LAB CHEMISTRY METHOD 03/28/2024 2:08 PM EST [facility] Mean Bld Glu Estim. 123 mg/dL LAB CHEMISTRY METHOD 03/28/2024 2:08 PM EST [facility] Blood Venous blood specimen / Unknown Venipuncture / Unknown 03/28/2024 10:13 AM EST 03/28/2024 10:13 AM EST us Camilo Farrell MD LAB BLOOD ORDERABLES F inal Result [facility] [address] [place] [address], * (ABNORMAL) Comprehensive metabolic panel (03/28/2024 10:13 AM EST) Sodium 136 133 - 145 mmol/L LAB CHEMISTRY METHOD 03/28/2024 12:33 PM [facility] Potassium 4.1 3.5 - 5.5 mmol/L LAB CHEMISTRY METHOD 03/28/2024 12:33 PM [facility] Chloride 106 96 - 110 mmol/L LAB CHEMISTRY METHOD 03/28/2024 12:33 PM [facility] CO2 20(L) 21 - 32 mmol/L LAB CHEMISTRY METHOD 03/28/2024 12:33 PM [facility] Anion Gap 10 3 - 11 LAB CHEMISTRY METHOD 03/28/2024 12:33 PM [facility] Glucose 125(H) 70 - 100 mg/dL LAB CHEMISTRY METHOD 03/28/2024 12:33 PM [facility] BUN 19 5 - 25 mg/dL LAB CHEMISTRY METHOD 03/28/2024 12:33 PM [facility] Creatinine 1.27 0.70 - 1.30 mg/dL LAB CHEMISTRY METHOD 03/28/2024 12:33 PM [facility] eGFR 61 >=60 mL/min/1. 73m2 LAB CHEMISTRY METHOD 03/28/2024 12:33 PM [facility] Comment:Calculation based on the??Chronic Kidney Disease Epidemiology Collaboration (CKD-EPI) equation refit??without adjustment for race. BUN/Creatinine Ratio 15.0 LAB CHEMISTRY METHOD 03/28/2024 12:33 PM [facility] Calcium 9.8 8.5 - 10.5 mg/dL LAB CHEMISTRY METHOD 03/28/2024 12:33 PM [facility] AST (SGOT) 77(H) 10 - 42 unit/L LAB CHEMISTRY METHOD 03/28/2024 12:33 PM [facility] ALT (SGPT) 45 10 - 60 unit/L LAB CHEMISTRY METHOD 03/28/2024 12:33 PM [facility] Alkaline Phosphatase 99 42 - 121 unit/L LAB CHEMISTRY METHOD 03/28/2024 12:33 PM [facility] Total Protein 7.7 6.0 - 8.0 g/dL LAB CHEMISTRY METHOD 03/28/2024 12:33 PM [facility] Albumin 4.0 3.2 - 5.0 g/dL LAB CHEMISTRY METHOD 03/28/2024 12:33 PM [facility] Total Bilirubin 0.5 0.0 - 1.4 mg/dL LAB CHEMISTRY METHOD 03/28/2024 12:33 PM [facility] Blood Venous blood specimen / Unknown Venipuncture / Unknown 03/28/2024 10:13 AM EST 03/28/2024 10:13 AM EST Camilo Farrell MD LAB BLOOD ORDERABLES F inal Result [facility] [address] [place] [address], * Hepatitis C Screening (03/24/2023) Pathologist [facility] Hepatitis C Screening abstracted Historical Provider HEALTH MAINTENANCE Final Result from Last 3 Months or Most Recently Relevant to Health Maintenance Insurance Advance Directives Documents on File Type Date Recorded Patient Cooker Tender Expl anation Health Care Decision (hx) 07/20/2023 HE ALTH CARE PROXY Health Care Decision (hx) 07/20/2023 HE ALTH CARE PROXY Health Care Decision (hx) 07/20/2023 HE ALTH CARE PROXY Care Teams Cloth Tearer Relationship Specialty Start Date End Date Adithya Johnson [address] [place] [id number] PCP - General Internal Medicine 06/22/24
--- OUTSIDE RECORDS SUMMARY | 2024-07-10 16:35 | XMS_ITS | Encounter Summary ---
Author Organization [employer] Address [address] [place] [address] Care Team Providers Care Synthetic Filament Extruder Name Role Phone Adithya Johnson Primary Care Provide r Encounter Details Date Type Department Care Team (Late st Contact Info) Description 06/25/2024 3:01 PM EST Anesthesia Event [facility] Endoscopy [address] [place] [phone] Raulito Mcdaniel DO [address] [place] [address] Anesthesia Record Procedure Summary Procedure Name Responsible Anesthesiologist Anesthesia Start Time Anesthesia Stop Time COLONOSCOPY Raulito Mcdaniel DO 06/25/24 1501 06/25/24 1533 Events Date Time Event Comment 06/25/2024 1454 1501 An Start 1501 An Start Data The patient wa s reevaluated immediately before moderate or deep sedation use and before anesthesia induction. 1501 Anesthesia Ready 1501 In Room 1517 Shane Iv infiltrated new 20 g iv strated in r hand after wiped with chloro prep. Tegaderm applied 1527 Shane Waiting for pos t proc bed 1528 Out of Room 1528 an stop data 1532 Handoff to RN I completed my handoff to the receiving nurse during which we: 1. Identified the patient 2. Identified the responsible provider 3. Reviewed the pertinent medical history 4. Discussed the surgical course 5. Reviewed intra-op anesthesia management and issues during anesthesia 6. Set expectations for post-procedure period 7. Allowed opportunity for questions and acknowledgement of understanding. 1533 An Stop Meds Name Total propofol (DIPRIVAN) injection 10 mg/mL 3 00 mg lidocaine PF (XYLOCAINE-MPF) local injec tion 2% 50 mg lactated Ringer's infusion 500 mL * Agents No agents on file. * Blood No blood administrations on file. Lines, Drains, and Airways Type Details Placement Removal Peripheral IV Placement Date: 06/25/24; Placement Time: 1438; Catheter Size: 20 G; Orientation: Posterior, Right; Location: Hand; Site Prep: Chlorhexidine; Local Anesth: None; Inserted by: RANI TOWNSEND; Insertion Attempts: 1; Patient Tolerance: Tolerated well; Removal Date: 06/25/24; Removal Time: 1602 06/25/24 143 by Teresa Mcallister RN 06/25/24 160 by Hortencia Mcekon RN documented in this encounter Social History Tobacco Use Types Packs/Day Years [...] for your loved ones. For example, child & adolescent psychiatrist or elderly care for an older adult? [...] Orientation Straight 06/22/2024 2: 01 PM EST documented as of this encounter Progress Notes * Raulito Mcdaniel DO - 06/25/2024 3:33 PM EST 118/82Patient: Hugo Flavia Procedure Summary Date: 06/25/24 Room / Location: [facility] Endoscopy Anesthesia Start: 1501 Anesthesia Stop: 1533 Procedure: COLONOSCOPY Diagnosis: Colon cancer screening (Screening for colorectal malignant neoplasm) Scheduled Providers: Hector Pradhan MD; Raulito Mcdaniel DO; Sarah Bella CRNA Responsible Provider: Raulito Mcdaniel DO Anesthesia Type: MAC ASA Status: 3 Anesthesia Plan: MAC Last Vitals: Vitals Value Taken Time BP 118/82 06/25/24 1533 Temp na 06/25/24 1533 Pulse 87 06/25/24 1533 Resp 20 06/25/24 1533 SpO2 92 06/25/24 1533 No data recorded Anesthesia Post Evaluation Patient location during evaluation: bedside Patient participation: waiting for patient participation Level of consciousness: responsive to light touch Pain management: adequate Airway patency: patent Anesthetic complications: no Cardiovascular status: acceptable Respiratory status: acceptable Hydration status: acceptable Nausea: No Vomiting: No There were no known notable events for this encounter. * Raulito Mcdaniel DO - 06/25/2024 2:47 PM EST Relevant Problems Cardio (+) Primary hypertension (+) Varicose veins of both lower extremities Clinical information reviewed: Allergies Anesthesia Plan ASA 3 Anesthesia Plan: MAC Anesthesia Risks Discussed dental injury, allergic reaction, nausea, sore throat, corneal abrasion,pain and serious complications Plan Factors Patient is not a current smoker Induction method: N/A Anesthetic plan and risks discussed with patient. Anesthesia Plan discussed with attending. Anesthesia Evaluation Patient summary reviewed and Nursing notes reviewed No history of anesthetic complications Airway Mallampati: III Thyromental distance: > 3 finger breadths Neck ROM: full Dental (+) lower dentures Pulmonary - normal exam breath sounds clear to auscultation (-) COPD, asthma, sleep apnea Cardiovascular - normal exam Exercise tolerance: good (+) hypertension (-) past AL, CAD, angina, REESE ECG reviewed Rhythm: regular Rate: normal Neuro/Psych (-) seizures, TIA, CVA GI/Hepatic/Renal (+) GERD, hepatitis (treated) C, liver disease, chronic renal disease (CKD stage 3) CRI Endo/Other (+) diabetes mellitus (a1c 6.6) type 2 well controlled (-) hypothyroidism Comments: HIV - pt reports undetectable viral load and good CD4 count Distant Hx of IVDU Gout Abdominal PONV RISK SCORE: 1 Vitals: 06/15/24 1500 Weight: 93 kg (205 lb) Height: 1.778 m (70 ) SpO2 Readings from Last 1 Encounters: 03/27/24 98% No results found for: WBC , RBC , HGB , HCT , PLT , MCV No Known Allergies STOP BANG: No data recorded NPO Status: Time of Last Liquid: 2100 documented in this encounter Plan of Treatment Upcoming Encounters Date Type Department Care Team (Late st Contact Info) Description 07/18/2024 1:30 PM EDT Office Visit Orthopedic Surgery - [place] [address] 175 [facility] [address] [place] [address] Adithya Rubio MD 175 [facility] [address] [place] [address] documented as of this encounter Visit Diagnoses Not on filedocumented in this encounter Administered Medications Inactive Administered Medications - up to 3 most recent administrations Medication Order MAR Action Action Date Dose Rate Site lactated Ringer's infusion intravenous, Continuous PRN, Starting on Tue06/25/24 at 1506, Anesthesia Intraprocedure New Bag 06/25/2024 3:06 PM EST 50 mL /hr lidocaine (PF) (XYLOCAINE-MPF) 2 % injection injection, As needed, Starting on Tue06/25/24 at 1506, Anesthesia Intraprocedure Given 06/25/2024 3:06 PM EST 50 mg propofoL (DIPRIVAN) injection intravenous, As needed, Starting on Tue06/25/24 at 1506, Anesthesia Intraprocedure Given 06/25/2024 3:23 PM EST 100 mg Given 06/25/2024 3:06 PM EST 200 mg documented in this encounter Care Teams Synthetic Filament Extruder Relationship Specialty Start Date End Date Adithya Johnson [address] [place] [phone] PCP - General Internal Medicine 06/22/24 documented as of this encounter
--- OUTSIDE RECORDS SUMMARY | 2024-07-10 16:35 | XMS_ITS | Encounter Summary ---
Author Organization [employer] Address [address] [place] [address] Care Team Providers Care Roll Handler Name Role Phone Adithya Johnson Primary Care Provide r Reason for Referral * Hospital - Outpatient (Routine) - Closed Specialty Diagnoses / Procedures Referred By Nick matias Referred To Contact Gastroenterology Diagnoses Colon cancer screening Procedures COLONOSCOPY Anesthesia - MAC; [facility] ENDOSCOPY Hector Pradhan MD [address] [address] Phone: tel: fax: [facility] Endoscopy [address] [place] [phone] Phone: tel: Referral ID Status Reason Start Date Expiration Date Visits Re quested Visits Authorized [id number] Closed 05/29/2024 05/29/2025 1 1 Reason for Visit * Hospital - Outpatient (Routine) - Closed Specialty Diagnoses / Procedures Referred By Nick matias Referred To Contact Gastroenterology Diagnoses Colon cancer screening Procedures COLONOSCOPY Anesthesia - MAC; [facility] ENDOSCOPY Hector Pradhan MD [address] [address] Phone: tel: fax: [facility] Endoscopy [address] [place] [address] Phone: tel: Referral ID Status Reason Start Date Expiration Date Visits Re quested Visits Authorized [id number] Closed 05/29/2024 05/29/2025 1 1 Encounter Details Date Type Department Care Team (Latest Contact Info) Description 06/25/2024 2:06 PM EST - 06/25/2024 11:59 PM EST Hospital Encounter [facility] Endoscopy [address] [place] [id number] Hector Pradhan MD [address] [address] Raulito Mcdaniel DO [address] [place], [place] [id number] Sarah Bella CRNA [address] [place], [place] [id number] Colon cancer screening Discharge Disposition: Home or Self Care Social History Tobacco Use Types Packs/Day Years [...] care for your loved ones. For example, child's nurse or elderly care for an older [...] PM EST documented as of this encounter Last Filed Vital Signs Vital Sign Reading [...] Mass Index 28.7 06/25/2024 2:50 PM EST documented in this encounter Discharge Instructions * Attachments The following attachments cannot be sent through Care Everywhere. * Diverticulosis (Slovak) * Hemorrhoids (Slovak) documented in this encounter Medications at Time of Discharge acetaminophen (TYLENOL) 500 mg tablet Take 2 tablets (1,000 mg total) by mouth every 8 (eight) hours if needed. 01/17/2024 albuterol HFA (PROAIR HFA ; PROVENTIL HFA ; VENTOLIN HFA) 90 mcg/actuation inhaler Inhale 2 puffs by mouth every 6 (six) hours if needed for shortness of breath. alclomethasone (ACLOVATE) 0.05 % cream Apply topically if needed. allopurinoL (ZYLOPRIM) 100 mg tablet Take 1 tablet (100 mg total) by mouth 1 (one) time each day. 180 tablet 03/27/2024 aspirin 81 mg chewable tablet Chew 1 tablet (81 mg total) 1 (one) time each day. Biktarvy 50-200-25 mg per tablet Take 1 tablet by mouth 1 (one) time each day. 11/09/2023 bisacodyL (DULCOLAX) 5 mg EC tablet Take 2 tablets by mouth right before beginning bowel prep. See instructions provided by the office 2 tablet 03/27/2024 celecoxib (CeleBREX) 100 mg capsule TAKE 1 CAPSULE BY MOUTH 2 TIMES DAILY NEEDED FOR PAIN (TAKE WITH FOOD AND STAY HYDRATED). 01/20/2024 elvitegravir-laura cistat-emtricitab ine-tenofovir alafenamide (Genvoya) [phone] mg per tablet Take 1 tablet by mouth 1 (one) time each day. 12/16/2022 lisinopriL (PRINIVIL,ZESTRIL ) 10 mg tablet Take 1 tablet (10 mg total) by mouth 1 (one) time each day. 90 tablet 03/27/2024 pantoprazole (PROTONIX) 40 mg EC tablet TAKE 1 TABLET BY MOUTH EVERY DAY BEFORE BREAKFAST 90 tablet 1 03/28/2024 polyethylene glycol (Golytely) 236-22.74-6.74 -5.86 gram solution Take 4L by mouth once for one dose. May substitue any PEG. Starting at 6PM the night before your procedure drink 1 8oz glasses at your own pace until you complete half of the gallon. Finish 2nd half of the gallon 5 hours before your procedure. 4000 mL 03/27/2024 documented as of this encounter Discharge Disposition Disposition Code Departure Means Destination Home or Self Care documented in this encounter Progress Notes * Hortencia Mckeon RN - 06/25/2024 3:40 PM EST Problem: Cognitive:Periop Procedure - Minor Goal: Knowledge of disease or condition will improve Outcome: Adequate for Discharge Problem: Sensory:Periop Procedure - Minor Goal: Demonstrates/reports adequate pain control Outcome: Adequate for Discharge Pt meets criteria for d/c * Teresa Mcallister RN - 06/25/2024 2:52 PM EST Problem: Cognitive:Periop Procedure - Minor Goal: Knowledge of disease or condition will improve Outcome: Progressing Problem: Sensory:Periop Procedure - Minor Goal: Demonstrates/reports adequate pain control Outcome: Progressing PATIENT DEMONSTRATES UNDERSTANDING OF INSTRUCTIONS AND FALL RISKS documented in this encounter H&P Notes * Hector Pradhan MD - 06/25/2024 3:00 PM EST Pre-Op Diagnosis: Screening for colon cancer Proposed Procedure: Colonoscopy Performing Surgeon/MD/Endoscopist: Hector Pradhan MD Medical/History: Past Medical History: Diagnosis Date Asthma Colon polyp Diverticulitis of colon 11/27/2019 Diverticulosis HIV (human immunodeficiency virus infection) ([facility]) HTN (hypertension) DX:HTN (hypertension) Hyponatremia 06/07/2021 Metabolic syndrome 03/12/2019 Prediabetes 07/05/2016 Last Assessment & Plan: Patient advised of reasons for treatment and HgbA1c goal, advised to share any concerns. Outlined treatment goals, individual plan for pre-diabetes and reviewed any barriers that may be present for patient to meet these goals. Reminded of the need for an annual flu shot. 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 Authorizing Provider allopurinoL (ZYLOPRIM) 100 mg tablet Take 1 tablet (100 mg total) by mouth 1 (one) time each day. 03/27/24 Yes Camilo Farrell MD celecoxib (CeleBREX) 100 mg capsule TAKE 1 CAPSULE BY MOUTH 2 TIMES DAILY NEEDED FOR PAIN (TAKE WITH FOOD AND STAY HYDRATED). 01/20/24 Yes Historical Provider, ghxmgozenpwi-cbeikhipow-rjelvdlzktgns-tenofovir alafenamide (Genvoya) [phone] mg per tablet Take 1 tablet by mouth 1 (one) time each day. 12/16/22 Yes Historical Provider, lisinopriL (PRINIVIL,ZESTRIL) 10 mg tablet Take 1 tablet (10 mg total) by mouth 1 (one) time each day. 03/27/24 Yes Camilo Farrell MD acetaminophen (TYLENOL) 500 mg tablet Take 2 tablets (1,000 mg total) by mouth every 8 (eight) hours if needed. 01/17/24 Historical Provider, albuterol HFA (PROAIR HFA ; PROVENTIL HFA ; VENTOLIN HFA) 90 mcg/actuation inhaler Inhale 2 puffs by mouth every 6 (six) hours if needed for shortness of breath. Historical Provider, alclomethasone (ACLOVATE) 0.05 % cream Apply topically if needed. Historical Provider, aspirin 81 mg chewable tablet Chew 1 tablet (81 mg total) 1 (one) time each day. Historical Provider, Biktarvy 50-200-25 mg per tablet Take 1 tablet by mouth 1 (one) time each day. 11/09/23 Historical Provider, bisacodyL (DULCOLAX) 5 mg EC tablet Take 2 tablets by mouth right before beginning bowel prep. See instructions provided by the office 03/27/24 Rhea Hunt NP pantoprazole (PROTONIX) 40 mg EC tablet TAKE 1 TABLET BY MOUTH EVERY DAY BEFORE BREAKFAST 03/28/24 Camilo Farrell MD polyethylene glycol (Golytely) 236-22.74-6.74 -5.86 gram solution Take 4L by mouth once for one dose. May substitue any PEG. Starting at 6PM the night before your procedure drink 1 8oz glasses at your own pace until you complete half of the gallon. Finish 2nd half of the gallon 5 hours before your procedure. 03/27/24 Rhea Hunt NP Patient Age:69 y.o. Vitals: Vitals: 06/25/24 1450 BP: (!) 141/94 Pulse: 92 Resp: 12 Temp: 36.5 ??C (97.7 ??F) SpO2: 95% Physical Exam: Mental Status: Clear HEENT: WNL Heart: WNL Lungs: WNL Abdomen: WNL Extremities: WNL Neuro: WNL Diagnosis/Plan: Screening for colon cancer Plan for colonoscopy. Board Certified Gastroenterology [facility] Medical [facility] W [phone] [address] [email or web address] Hector Pradhan MD 2:53 PM EST documented in this encounter Procedure Notes * Hortencia Mckeon RN - 06/25/2024 3:42 PM EST at pt bedside documented in this encounter Plan of Treatment Upcoming Encounters Date Type Department Care Team ([facility] st Contact Info) Description 07/18/2024 1:30 PM EDT Office Visit Orthopedic Surgery - [place] [address] [phone] Adithya Rubio MD 175 [facility] [address] [place] [address] documented as of this encounter Procedures Procedure Name Priority Date/Time Associated Diagnosis Comments COLONOSCOPY Routine 06/25/2024 3:28 PM EST Colon cancer screening documented in this encounter Results * COLONOSCOPY Anesthesia - MAC; [facility] ENDOSCOPY (06/25/2024 3:28 PM EST) Anatomical Region [...] clinic PRN. Narrative 06/25/2024 3:26 PM EST [facility] GI Patient Name: Hugo Alejandro Procedure Date: [...] neoplasm ? of colon CPT copyright 2020 [employer]. All rights reserved. The codes documented in this report are preliminary and upon heating and ventilating tender review may be revised to meet current compliance requirements. Hector Pradhan MD 06/25/2024 3:26:15 PM This report has been signed electronically.Hector Pradhan MD Number of Addenda: 0 Note Initiated On: 06/25/2024 2:52 PM Scope In: Scope Out: ? Endoscopy Department at [facility] - [address] [place] [address], ? [place] [address] Procedure Note Hector Pradhan MD - 06/25/2024 [facility] GI Patient Name: Hugo Alejandro Procedure Date: [...] for malignantneoplasm of colon CPT copyright 2020 [employer]. All rights reserved. The codes documented in this report are preliminary and upon heating and ventilating tender reviewmay be revised to meet current compliance requirements. Hector Pradhan MD 06/25/2024 3:26:15 PM This report has been signed electronically.Hector Pradhan MD Number of Addenda: 0 Note Initiated On: 06/25/2024 2:52 PM Scope In: Scope Out: Endoscopy Department at [facility] - [address] [place] [phone] IMPRESSION: - Diverticulosis in the left colon. - Non-bleeding internal hemorrhoids. - The examination was otherwise normal on directand retroflexion views. - No specimens collected. Recommendation: - Discharge patient to home. - High fiber diet. - Continue present medications. - Return to GI clinic PRN. us Hector Pradhan MD GI~PROCEDURE ORDERABLES Final Result documented in this encounter Visit Diagnoses Diagnosis Colon cancer screening Special screening for malignant neoplasms, colon documented in this encounter Orders Discharge Count Last Ordered Date First Orde red Date DISCHARGE PATIENT 1 06/25/2024 documented in this encounter Care Teams Roll Handler Relationship Specialty Start Date End Date Adithya Johnson [address] [place] [id number] PCP - General Internal Medicine 06/22/24 documented as of this encounter
--- OUTSIDE RECORDS SUMMARY | 2024-07-10 16:35 | XMS_ITS | Clinical Summary ---
Author Organization [facility] Address [address] [place] [address] Care Team Providers Care Strainer Tender Name Role Phone Unknown Primary Care Provider [phone] Allergies No known active allergies Medications Medication [...] 12/31/2021 Active elvitegravir-cobici stat-emtricitabine- tenofovir alafenamide (Genvoya) [phone] mg tablet Take 1 tablet by mouth [...] TO 2-3 WEEKS 01/05/2022 Active nystatin (MYCOSTATIN) 743241 UNIT/GM cream APPLY CREAM TOPICALLY TWICE DAILY [...] Active proMETHAZINE-dextro methorphan (proMETHAZINE-DM) 6.25-15 MG/5ML syrupIndications:Ac óscar bronchitis with bronchospasm Take 5 mL by [...] Pt given handouts and recommended to visit [email or web address] HIV (human immunodeficiency virus infection) 12/2016 [...] 09/11/2018, 09/01/2007, Additional history exists Care Teams Strainer Tender Relationship Specialty Start Date End Date Unknown Unknow Provider Address PCP - General 01/18/22
--- OUTSIDE RECORDS SUMMARY | 2024-07-10 16:35 | XMS_ITS | Encounter Summary ---
Author Organization [facility] Address [address] [place] [address] Care Team Providers Care Risk Control Specialist Name Role Phone Unknown Primary Care Provider [phone] Encounter Details Date Type Department Care Team (Late st Contact Info) Description 05/24/2022 Telephone [facility] [place] [address] [place] [address] Keven Alaniz PA [address] [place] [address] Social History Tobacco Use Types Packs/Day Years Used Date Smoking Tobacco: Never Assessed Sex and Gender Information Value Date Recorded Sex Assigned at Not on file Gender Identity Not on file Sexual Orientation Not on file documented as of this encounter Plan of Treatment Not on file documented as of this encounter Visit Diagnoses Not on filedocumented in this encounter Care Teams Risk Control Specialist Relationship Specialty Start Date End Date Unknown Unknow Provider Address PCP - General 01/18/22 documented as of this encounter
--- OUTSIDE RECORDS SUMMARY | 2024-07-10 16:35 | XMS_ITS | Clinical Summary ---
Author Organization [facility] Address [address] [place] [address] Care Team Providers Care Pcmh Specialist Name Role Phone Unavailable Primary Care Provider [...] Personal/Family Self 1955 [address] [place] [address]
== END 2024-07-10 13:55 | disposition home or self-care (01) ==
LOC: HO.RESP 13:54
PROVIDERS: PCP Internal Medicine; Visit Provider Internal Medicine
DX: R06.02 Shortness of breath (principal)
CPT/HCPCS: 94010; 94640; 94727; 94729

== ENCOUNTER → 2024-07-10 13:57 | Outpatient (BNV) | payer MEDICARE, SELFPAY | PROVIDERS: PCP Internal Medicine; Visit Provider Internal Medicine Pulmonary Disease | DX: R06.02 Shortness of breath (principal) | CPT/HCPCS: 94060; 94727; 94729 ==

== ENCOUNTER 2024-07-24 13:37 | Outpatient (AMB) | payer MEDICARE, SELFPAY ==
[2024-07-24 14:48] VITALS: BP 122/80; PULSE 100; TEMP 36.7; O2SAT 98
--- NOTE | 2024-07-24 14:48 | AM.OFFWIN_ITS ---
Intake Vital Signs 07/24/24 14:48 Weight 241 lb BP 122/80 Blood Pressure Location Lt brachial Position Sitting Pulse 100 Pulse Source Pulse Oximeter Temp 98.1 F Temp Source Oral Pulse Oximetry (%) 98 Oxygen Delivery Method Room Air Intake Visit Reasons: EP Colon pain Intake Note: Patient here for feverish, colon pain, not passing BM that started a couple of days ago. Patient Tobacco Use Status: Never used Tobacco Allergies No Known Allergies Allergy (Verified 07/24/24 14:48) Do you need a note to return to daycare/school/sports/work: No HPI HPI Comments History of Present Illness Details This is a 69-year-old male with a past medical history of diverticulosis presenting for evaluation of left lower quadrant and suprapubic pain that he has had since last night. Patient denies having any nausea, vomiting, dysuria, urinary frequency, dark or bloody stools or hematuria. surgical history is significant for stomach ulcer only. Patient's last normal bowel movement was yesterday morning. Patient states he felt feverish last night for which he took Tylenol. Patient states the pain has now become constant and sharp. [facility] Social History Patient Tobacco Use Status: Never used Tobacco Review of Systems Const All systems reviewed & are unremarkable except as noted in HPI and below Denies chills, Reports fever(s) (subjective) and Denies headache(s) Eyes Reports no additional complaints ENT Reports no additional complaints, Denies dysphagia and Denies headache(s) Card Reports no additional complaints Resp Reports no additional complaints GI Reports abdominal pain, Denies belching, Denies constipation, Reports GI cramping, Denies dysphagia, Denies excessive flatus, Denies diarrhea, Denies loose stools, Denies nausea and Denies vomiting Reports no additional complaints, Denies dysuria, Denies urinary frequency and Denies urinary urgency Musc Reports no additional complaints Skin/Breast Reports system reviewed and no additional complaints, except as documented Neuro Reports no additional complaints and Denies headache(s) Psych Reports no additional complaints Elie/Lymph Reports no additional complaints Physical Exam Vital Signs: Last Vital Signs Temp 98.1 F 07/24/24 14:48 Pulse 100 07/24/24 14:48 BP 122/80 07/24/24 14:48 Pulse Ox 98 07/24/24 14:48 Oxygen Delivery Method Room Air 04/01/25 14:48 Const General: cooperative, healthy appearing, comfortable, no acute distress, well developed, alert, awake and Physically active Nutritional Appearance: well nourished Orientation/consciousness: patient oriented x3 Limitations: no limitations GI Inspection: Yes normal to inspection, No abdominal wall ecchymosis and No distended Palpation (GI): Soft to palpation, Tenderness to palpation present (GI) in the LLQ and suprapubicly; not in the RLQ, no guarding and no pulsatile masses Auscultation: normal bowel sounds Rectal Exam - Male: Yes deferred General: Yes bladder normal to palpation and Yes no CVA tenderness Back/Spine/Pelvis Back: no CVA tenderness Skin General skin exam: no rashes or lesions noted Neuro General: patient oriented x3 Psych Appearance: grossly normal Mental Status: mental status grossly normal Insight: Good insight present (Psych) Judgement: Good judgement present (Psych) Assessment & Plan Assessment & Plan (1) LLQ abdominal pain: Comment: Given this patient's history of diverticulosis, subjective fevers and left lower quadrant tenderness, patient will empirically be treated for diverticulitis with Augmentin. Patient is instructed to go to the emergency department for any worsening pain or radiation of his pain as he still has his appendix and his pain could be referred from the RLQ. Patient is in understanding with this concern and recommendation. Code(s): R10.32 - Left lower quadrant pain Plan: Augmentin 875 mg b.i.d.. Tylenol or ibuprofen as needed for discomfort. Follow up for any worsening symptoms as discussed. Medications: New amoxicillin-pot clavulanate 875-125 mg 1 tab PO BID 14 tabs 0RF Coding Level of Care Code Est Pt Level 3 (13637) Diagnoses LLQ abdominal pain R10.32 Time Spent (min) 25
--- OUTSIDE RECORDS SUMMARY | 2024-07-24 16:11 | XMS_ITS | Clinical Summary ---
Author Organization [facility] Address [address] [place] [address] Care Team Providers Care Circuit Judge Name Role Phone Unknown Primary Care Provider [phone] Allergies No known active allergies Medications Medication [...] 12/31/2021 Active elvitegravir-cobici stat-emtricitabine- tenofovir alafenamide (Genvoya) [phone] mg tablet Take 1 tablet by mouth [...] TO 2-3 WEEKS 01/05/2022 Active nystatin (MYCOSTATIN) 267307 UNIT/GM cream APPLY CREAM TOPICALLY TWICE DAILY [...] Pt given handouts and recommended to visit [email or web address] HIV (human immunodeficiency virus infection) 12/2016 [...] 09/11/2018, 09/01/2007, Additional history exists Care Teams Circuit Judge Relationship Specialty Start Date End Date Unknown Unknow Provider Address PCP - General 01/18/22
--- OUTSIDE RECORDS SUMMARY | 2024-07-24 16:11 | XMS_ITS | Encounter Summary ---
Author Organization [facility] Address [address] [place] [address] Care Team Providers Care On Awake Counselor Name Role Phone Unknown Primary Care Provider [phone] Encounter Details Date Type Department Care Team (Late st Contact Info) Description 05/24/2022 Telephone [facility] [place] [address] [place] [address] Keven Alaniz PA [address] [place] [address] Social History Tobacco Use Types Packs/Day Years Used Date Smoking Tobacco: Never Assessed Sex and Gender Information Value Date Recorded Sex Assigned at Not on file Gender Identity Not on file Sexual Orientation Not on file documented as of this encounter Plan of Treatment Not on file documented as of this encounter Visit Diagnoses Not on filedocumented in this encounter Care Teams On Awake Counselor Relationship Specialty Start Date End Date Unknown Unknow Provider Address PCP - General 01/18/22 documented as of this encounter
--- OUTSIDE RECORDS SUMMARY | 2024-07-24 16:11 | XMS_ITS | Clinical Summary ---
Author Organization Primary Data Address [address] [place] [address] Care Team Providers Care Skein Winder Name Role Phone Adithya Johnson Primary Care Provide r Allergies No known active allergies Medications acetaminophen (TYLENOL) 500 mg tablet Take 2 tablets (1,000 mg total) by mouth every 8 (eight) hours if needed. 024 Active elvitegravir-co bicistat-emtric itabine-tenofov ir alafenamide (Genvoya) 924-989-793-10 mg per tablet Take 1 tablet by mouth 1 (one) time each day. 023 Active pantoprazole (PROTONIX) 40 mg EC tablet TAKE 1 TABLET BY MOUTH EVERY DAY BEFORE BREAKFAST 90 tablet 1 024 Active polyethylene glycol (Golytely) 236-22.74-6.74 -5.86 gram solution Take 4L by mouth once for one dose. May substitue any PEG. Starting at 6PM the night before your procedure drink 1 8oz glasses at your own pace until you complete half of the gallon. Finish 2nd half of the gallon 5 hours before your procedure. 4000 mL 024 Active bisacodyL (DULCOLAX) 5 mg EC tablet Take 2 tablets by mouth right before beginning bowel prep. See instructions provided by the office 2 tablet 024 Active aspirin 81 mg chewable tablet Chew [...] % cream Apply topically if needed. Active ketoconazole (NIZORAL) 2 % shampoo APPLY SHAMPOO TO SCALP AND LET SIT FOR 5 MINUTES BEFORE RINSING DAILY FOR 1 WEEK. AND THEN TWICE WEEKLY Active celecoxib (CeleBREX) 100 mg capsuleIndicati ons:Post-operat bereket state,Status post bilateral knee replacements Take 1 capsule (100 mg total) by mouth 2 (two) times a day with meals. 60 capsule 3 Active celecoxib (CeleBREX) 100 mg capsule TAKE 1 CAPSULE BY MOUTH 2 TIMES DAILY NEEDED FOR PAIN (TAKE WITH FOOD AND STAY HYDRATED). 024 2024 Discontinued(R eorder) amoxicillin (AMOXIL) 500 mg capsule 025 2024 Discontinued amoxicillin (AMOXIL) 500 mg capsuleIndicati ons:Post-operat bereket state,Status post bilateral knee replacements Take 4 capsules (2,000 mg total) by mouth 1 (one) time for 1 dose. TAKE 4 CAPSULES 1 HOUR PRIOR TO DENTAL APPOINTMENT 4 each 2 025 2024 Active Problems Problem Noted Date Diagnosed Date [...] Date Hyponatremia 06/07/2021 03/27/2024 Diverticulitis of colon 11/27/201906/2023 Metabolic syndrome 03/12/2019 Elevated LDL cholesterol level [...] 35 07/06/2017 The 10-year ASCVD risk score ([place]jason BARRIENTOS Jr., et al., 2013) is: 19.4% [...] Pt given handouts and recommended to visit [email or web address] Last Assessment & Plan: Patient advised [...] (Bryan BARRIENTOS Jr. et al., 2013) is: 16% Values used to calculate the score: Age: 64 years Sex: Male Is Non- : No Diabetic: No Tobacco smoker: No Systolic Blood Pressure: 120 mmHg Is BP treated: Yes HDL Cholesterol: 51 mg/dL Total Cholesterol: 243 mg/dL Pt given handouts and recommended to visit [email or web address] Overweight (BMI 25.0-29.9) 07/01/2016 1 05/28/2023 [...] Encounters Date Type Department Care Team Description 07/18/2024 1:30 PM EDT Office Visit Orthopedic Surgery - [place] [address] [facility] [address] [place] [phone] Adithya Rubio MD Post-operative state (Primary Dx); Status post total left knee replacement; Status post bilateral knee replacements 06/25/2024 3:01 PM EST Anesthesia Event [facility] Endoscopy [address] [place] [phone] Raulito Mcdaniel DO 06/25/2024 2:06 PM EST - 06/25/2024 11:59 PM EST Hospital Encounter [facility] Endoscopy [address] [place] [address] Hector Pradhan MD Walsh, Michael, DO Swanson, Mona, CRNA Colon cancer screening Discharge Disposition: Home or Self Care from Last 3 Months Immunizations Name Administration Dates Next Due Influenza trivalent, 0.5mL (Fluad) 65yo and olde r 03/24/2023 Pfizer SARS-CoV-2 COVID-19, mRNA, LNP-S, preservative free 07/14/2020,06/24/2020 [...] forehead 2020 HIV (human immunodeficiency virus infection) (CMS/HCC) Colon polyp Social History Tobacco Use Types [...] for your loved ones. For example, child care center administrator or elderly care for an older adult? [...] Care Team (Late st Contact Info) Description 07/18/2025 1:30 PM EDT Office Visit Orthopedic Surgery - [address] [phone] Adithya Rubio MD [address] [address] Health Maintenance Due Date Last Done Comments [...] this topic Medical Devices Implanted Type Area Mold Maker Plastic Molds Device Identifier Shelf Expiration Date Model / Serial / Lot Joints Knee Joints Knee Bilateral : Knee Procedures Procedure Name Priority Date/Time Associated Diagnosis Comments XR KNEE 3 VIEWS BILAT Routine 07/18/2024 1:57 PM EDT Post-operative state Status post bilateral knee replacements COLONOSCOPY Routine 06/25/2024 3:28 PM EST Colon [...] Recently Relevant to Health Maintenance Results * XR Knee 3 Views bilat (07/18/2024 1:57 PM EDT) Anatomical Region Laterality Modality Lower Extremities, Knee Bilateral Computed Radiography Narrative 07/20/2024 2:58 PM EDT 3 views bilateral knees obtained today including AP, lateral, sunrise were reviewed. These show bilateral cemented posterior stabilized total knee replacement with patellar resurfacing. Implants appear well-fixed and well-positioned. No progressive or circumferential radiolucencies. Patella is tracking centrally bilaterally with unchanged a lateral patellar tilt involving the left knee, this is unchanged even from preoperative x-rays. us Adithya Rubio MD IMG XR PROCEDURES Fin al Result * COLONOSCOPY Anesthesia - MAC; [facility] ENDOSCOPY (06/25/2024 3:28 PM EST) Anatomical [...] clinic PRN. Narrative 06/25/2024 3:26 PM EST [facility] GI Patient Name: Hugo Alejandro [...] neoplasm ? of colon CPT copyright 2020 [employer]. All rights reserved. The codes documented in this report are preliminary and upon medical billing coder review may be revised to meet current compliance requirements. Hector Pradhan MD 06/25/2024 3:26:15 PM This report has been signed electronically.Hector Pradhan MD Number of Addenda: 0 Note Initiated On: 06/25/2024 2:52 PM Scope In: Scope Out: ? Endoscopy Department at [facility] - [address] [place] [address], ? [place] [address] Procedure Note Hector Pradhan MD - 06/25/2024 [facility] GI Patient Name: Hugo Alejandro [...] for malignantneoplasm of colon CPT copyright 2020 [employer]. All rights reserved. The codes documented in this report are preliminary and upon medical billing coder reviewmay be revised to meet current compliance requirements. Hector Pradhan MD 06/25/2024 3:26:15 PM This report has been signed electronically.Hector Pradhan MD Number of Addenda: 0 Note Initiated On: 06/25/2024 2:52 PM Scope In: Scope Out: Endoscopy Department at [facility] - [address] [place] [phone] IMPRESSION: - Diverticulosis in the left colon. [...] mg/dL LAB CHEMISTRY METHOD 03/28/2024 12:33 PM [facility] Triglycerides 252(H) 0 - 150 mg/dL LAB CHEMISTRY METHOD 03/28/2024 12:33 PM [facility] HDL 36(L) >=40 mg/dL LAB CHEMISTRY METHOD 03/28/2024 12:33 PM [facility] LDL Calculated 159(H) 0 - 100 mg/dL LAB CHEMISTRY METHOD 03/28/2024 12:33 PM [facility] VLDL Cholesterol Chip 50.4 mg/dL LAB CHEMISTRY METHOD 03/28/2024 12:33 PM [facility] Non HDL Chol. (LDL+VLDL) 209(H) <145 mg/dL LAB CHEMISTRY METHOD 03/28/2024 12:33 PM [facility] Chol/HDL Ratio 6.8(H) 0.0 - 4.4 LAB CHEMISTRY METHOD 03/28/2024 12:33 PM [facility] Blood Venous blood specimen / Unknown Venipuncture / Unknown 03/28/2024 10:13 AM EST 03/28/2024 10:13 AM EST us Camilo Farrell MD LAB BLOOD ORDERABLES F inal Result [facility] [address] [place] [address], [place] [phone] * (ABNORMAL) Microalbumin creatinine urine ratio (03/28/2024 10:13 AM EST) [facility] Creatinine, Urine 200.0 mg/dL LAB CHEMISTRY METHOD 03/28/2024 1:06 PM [facility] Microalb, Ur 67.1(H) 0.0 - 29.0 mg/L LAB CHEMISTRY METHOD 03/28/2024 1:06 PM [facility] Microalb/Crea t Ratio 34(H) <30 mg/g creat LAB CHEMISTRY METHOD 03/28/2024 1:06 PM [facility] Urine Urine specimen obtained by clean catch procedure / Unknown Non-blood Collection / Unknown 03/28/2024 10:13 AM EST 03/28/2024 10:13 AM EST us Camilo Farrell MD LAB URINE ORDERABLES F inal Result Performing Organization Address [facility]/ZIP Co de Phone Number [facility] [address] [place] [address], [place] [phone] * Hemoglobin A1c (03/28/2024 10:13 AM EST) [facility] Hemoglobin A1C 5.9 <6.5 % LAB CHEMISTRY METHOD 03/28/2024 2:08 PM [facility] Mean Bld Glu Estim. 123 mg/dL LAB CHEMISTRY METHOD 03/28/2024 2:08 PM [facility] Blood Venous blood specimen / Unknown Venipuncture / Unknown 03/28/2024 10:13 AM EST 03/28/2024 10:13 AM EST us Camilo Farrell MD LAB BLOOD ORDERABLES F inal Result Performing Organization Address City/[facility]/ZIP Co de Phone Number [facility] [address] [place] [address], [place] [phone] * (ABNORMAL) Comprehensive metabolic panel (03/28/2024 10:13 AM EST) Sodium 136 133 - 145 mmol/L LAB CHEMISTRY METHOD 03/28/2024 12:33 PM [facility] Potassium 4.1 3.5 - 5.5 mmol/L LAB CHEMISTRY METHOD 03/28/2024 12:33 PM [facility] Chloride 106 96 - 110 mmol/L LAB CHEMISTRY METHOD 03/28/2024 12:33 PM [facility] CO2 20(L) 21 - 32 mmol/L LAB CHEMISTRY METHOD 03/28/2024 12:33 PM [facility] Anion Gap 10 3 - 11 LAB CHEMISTRY METHOD 03/28/2024 12:33 PM [facility] Glucose 125(H) 70 - 100 mg/dL LAB CHEMISTRY METHOD 03/28/2024 12:33 PM [facility] BUN 19 5 - 25 mg/dL LAB CHEMISTRY METHOD 03/28/2024 12:33 PM [facility] Creatinine 1.27 0.70 - 1.30 mg/dL LAB CHEMISTRY METHOD 03/28/2024 12:33 PM [facility] eGFR 61 >=60 mL/min/1. 73m2 LAB CHEMISTRY METHOD 03/28/2024 12:33 PM [facility] Comment:Calculation based on the??Chronic Kidney Disease Epidemiology Collaboration (CKD-EPI) equation refit??without adjustment for race. BUN/Creatinine Ratio 15.0 LAB CHEMISTRY METHOD 03/28/2024 12:33 PM [facility] Calcium 9.8 8.5 - 10.5 mg/dL LAB CHEMISTRY METHOD 03/28/2024 12:33 PM [facility] AST (SGOT) 77(H) 10 - 42 unit/L LAB CHEMISTRY METHOD 03/28/2024 12:33 PM [facility] ALT (SGPT) 45 10 - 60 unit/L LAB CHEMISTRY METHOD 03/28/2024 12:33 PM [facility] Alkaline Phosphatase 99 42 - 121 unit/L LAB CHEMISTRY METHOD 03/28/2024 12:33 PM EST [facility] Total Protein 7.7 6.0 - 8.0 g/dL LAB CHEMISTRY METHOD 03/28/2024 12:33 PM EST [facility] Albumin 4.0 3.2 - 5.0 g/dL LAB CHEMISTRY METHOD 03/28/2024 12:33 PM [facility] Total Bilirubin 0.5 0.0 - 1.4 mg/dL LAB CHEMISTRY METHOD 03/28/2024 12:33 PM [facility] Blood Venous blood specimen / Unknown Venipuncture / Unknown 03/28/2024 10:13 AM EST 03/28/2024 10:13 AM EST Camilo Farrell MD LAB BLOOD ORDERABLES F inal Result [facility] [address] [place] [address], [place] [phone] * Hepatitis C Screening (03/24/2023) Pathologist [facility] Hepatitis C Screening abstracted Historical Provider HEALTH MAINTENANCE Final Result from Last 3 Months or Most Recently Relevant to Health Maintenance Insurance [employer] MED[employer]AGE Advance Directives Documents on File Type Date Recorded Patient Manager Of Product Expl anation Health Care Decision (hx) 07/20/2023 HE ALTH CARE PROXY Health Care Decision (hx) 07/20/2023 HE ALTH CARE PROXY Health Care Decision (hx) 07/20/2023 HE ALTH CARE PROXY Care Teams Skein Winder Relationship Specialty Start Date End Date Adithya Johnson [address] [place] [id number] PCP - General Internal Medicine 06/22/24
--- OUTSIDE RECORDS SUMMARY | 2024-07-24 16:11 | XMS_ITS | Clinical Summary ---
Author Organization [facility] Address [address] [place] [address] Care Team Providers Care J2Ee Architect Name Role Phone Unavailable Primary Care Provider [...] Personal/Family Self 1955 [address] [place] [address]
== END 2024-07-24 15:21 | disposition home or self-care (01) ==
PROVIDERS: PCP Internal Medicine; Visit Provider Physician Assistant
DX: R10.32 Left lower quadrant pain (principal)

== ENCOUNTER → 2024-07-24 13:37 | Outpatient (BNVA) | payer MEDICARE, SELFPAY | PROVIDERS: PCP Internal Medicine; Visit Provider Physician Assistant | DX: R10.32 Left lower quadrant pain (principal) | CPT/HCPCS: 99212 ==

== ENCOUNTER 2024-09-04 09:50 | Outpatient (REF) | payer MEDICARE, SELFPAY ==
--- OUTSIDE RECORDS SUMMARY | 2024-09-04 10:37 | XMS_ITS | Clinical Summary ---
Author Organization [facility] Address [address] [place] [address] Care Team Providers Care Rn Concurrent Review Name Role Phone Adithya Johnson Primary Care Provide r Allergies No known active allergies Medications acetaminophen (TYLENOL) 500 mg tablet Take 2 tablets (1,000 mg total) by mouth every 8 (eight) hours if needed. 4 Active elvitegravir-cob icistat-emtricit abine-tenofovir alafenamide (Genvoya) 266-269-249-10 mg per tablet Take 1 tablet by [...] 1 (one) time each day. Active lisinopriL (PRINIVIL,ZESTRI L) 10 mg tablet Take 1 tablet (10 [...] TWICE WEEKLY Active celecoxib (CeleBREX) 100 mg capsuleIndicatio ns:Post-operativ e state,Status post bilateral knee replacements Take 1 capsule (100 mg total) by mouth 2 (two) times a day with meals. 60 capsule 3 5 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 Overview (03/27/2024): Right knee replacement in 2012, left knee replacement in june 2023 New onset type 2 diabetes me llitus ([facility] V24, [facility] V28) 03/27/2024 Other hyperlipidemia 03/27/2024 Asymptomatic HIV infection, with no history of HIV-related illness ([facility] V24, [facility] V28) 03/27/2024 History of hepatitis C 03/27/2024 Overview (03/27/2024): Completed treatment course. Viral loads have been negative Primary osteoarthritis of left knee 02/22/2023 Overview (03/27/2024): S/p left knee total replacement june 2023 Stage 3a chronic kidney disease ([facility] V24, [facility] V28) 11/12/2022 Transaminitis 11/12/2022 Chronic gout without tophus 11/11/2022 Diverticulosis 11/11/2022 Primary hypertension 11/11/2022 Trigger finger, right ring finger 06/08/2021 Rosacea 05/28/2020 Skin lesion of left arm 03/12/2019 Anxiety 09/11/2018 Snoring 07/06/2017 Varicose veins of both lower extremities 017 Resolved Problems Problem Noted Date Diagnosed Date Resolved Date Hyponatremia 06/07/2021 03/27/2024 Diverticulitis of colon 11/27/2019 12/06/2023 Metabolic syndrome 03/12/2019 Elevated LDL cholesterol level [...] Pt given handouts and recommended to visit [email or web address] Last Assessment & Plan: Patient advised [...] Pt given handouts and recommended to visit [email or web address] Overweight (BMI 25.0-29.9) 07/01/2016 1 05/28/2023 [...] PM EDT Office Visit Orthopedic Surgery - [place] [address] [facility] [address] [place] [address] Adithya Rubio MD Post-operative state (Primary Dx); Status post total left knee replacement; Status post bilateral knee replacements 06/25/2024 3:01 PM EST Anesthesia Event [facility] [address] [place] [address] Raulito Mcdaniel DO 06/25/2024 2:06 PM EST - 06/25/2024 11:59 PM EST Hospital Encounter [facility] [address] [place] [address] Hector Pradhan MD Walsh, Michael, DO Swanson, [...] forehead 2020 HIV (human immunodeficiency virus infection) ([facility] V24, [facility] V28) Colon polyp Social History Tobacco Use Types [...] Record ed Within the last 3 months, lucita penaloza many times did you visit the emergency [...] PM EDT Office Visit Orthopedic Surgery - [place] [address] [address] Adithya Rubio MD [address] [address] Health Maintenance Due Date Last Done Comments Diabetes: Annual Foot Exam 1963 Diabetes: Annual Retina Eye Exam 1965 Hepatitis A Vaccines (1 of 2 - Risk 2-dose series) 1972 Zoster Vaccines (1 of 2) 1972 Hepatitis B Vaccines (1 of 3 - Risk 3-dose series) 2013 RSV Immunization Adult Patients (1 - Risk 60-74 years 1-dose [...] this topic MMR Vaccines Discontinued Meningococcal B Vaccine Aged Out No l onger eligible based on patient's age to complete this topic RSV Immunization Patients Under 20 months Aged Out No longer eligible based on patient's age to complete this topic Varicella Vaccines Aged Out No longer eligible based on patient's age to complete this topic Medical Devices Implanted Type Area Air Antisubmarine Officer Device Identifier Shelf Expiration Date Model / [...] EST New onset type 2 diabetes mellitus (CMS/HCC V24, CMS/HCC V28) COMPREHENSIVE METABOLIC PANEL Routine 03/28/2024 10:13 AM EST New onset type 2 diabetes mellitus (CMS/HCC V24, CMS/HCC V28) HEMOGLOBIN A1C Routine 03/28/2024 10:13 AM EST New onset type 2 diabetes mellitus (CMS/HCC V24, CMS/HCC V28) LIPID PANEL WITH REFLEX TO DIRECT LDL Routine 03/28/2024 10:13 AM EST New onset type 2 diabetes mellitus (CMS/HCC V24, CMS/HCC V28) HM HEPATITIS C SCREENING Routine 03/24/2023 from Last [...] Result * COLONOSCOPY Anesthesia - MAC; [facility] END[facility] (06/25/2024 3:28 PM EST) Anatomical [...] clinic PRN. Narrative 06/25/2024 3:[address] [facility] Patient Name: Hugo Alejandro Procedure Date: [...] neoplasm ? of colon CPT copyright 2020 [employer]. All rights reserved. The codes documented in this report are preliminary and upon newswriter review may be revised to meet current compliance requirements. Hector Pradhan MD 06/25/2024 3:26:15 PM This report has been signed electronically.Hector Pradhan MD Number of Addenda: 0 Note Initiated On: 06/25/2024 2:52 PM Scope In: Scope Out: ? Endoscopy Department at [facility] - [address] [place] [address], ? [place] [address] Procedure Note Hector Pradhan MD - 06/25/2024 [facility] Patient Name: Hugo Alejandro Procedure Date: [...] for malignantneoplasm of colon CPT copyright 2020 [employer]. All rights reserved. The codes documented in this report are preliminary and upon newswriter reviewmay be revised to meet current compliance requirements. Hector Pradhan MD 06/25/2024 3:26:15 PM This report has been signed electronically.Hector Pradhan MD Number of Addenda: 0 Note Initiated On: 06/25/2024 2:52 PM Scope In: Scope Out: Endoscopy Department at [facility] - [address] [place] [id number] IMPRESSION: - Diverticulosis in the left colon. [...] mg/dL LAB CHEMISTRY METHOD 03/28/2024 12:33 PM [facility] Triglycerides 252(H) 0 - 150 mg/dL LAB CHEMISTRY METHOD 03/28/2024 12:33 PM [facility] HDL 36(L) >=40 mg/dL LAB CHEMISTRY METHOD 03/28/2024 12:33 PM [facility] LDL Calculated 159(H) 0 - 100 mg/dL LAB CHEMISTRY METHOD 03/28/2024 12:33 PM [facility] VLDL Cholesterol Chip 50.4 mg/dL LAB CHEMISTRY METHOD 03/28/2024 12:33 PM [facility] Non HDL Chol. (LDL+VLDL) 209(H) <145 mg/dL LAB CHEMISTRY METHOD 03/28/2024 12:33 PM [facility] Chol/HDL Ratio 6.8(H) 0.0 - 4.4 LAB CHEMISTRY METHOD 03/28/2024 12:33 PM [facility] Blood Venous blood specimen / Unknown Venipuncture / Unknown 03/28/2024 10:13 AM EST 03/28/2024 10:13 AM EST Camilo Farrell MD LAB BLOOD ORDERABLES F inal Result [facility] [address] [place] [address], [place] [phone] * (ABNORMAL) Microalbumin creatinine urine ratio (03/28/2024 10:13 AM EST) Creatinine, Urine 200.0 mg/dL LAB CHEMISTRY METHOD 03/28/2024 1:06 PM [facility] Microalb, Ur 67.1(H) 0.0 - 29.0 mg/L LAB CHEMISTRY METHOD 03/28/2024 1:06 PM [facility] Microalb/Crea t Ratio 34(H) <30 mg/g creat LAB CHEMISTRY METHOD 03/28/2024 1:06 PM [facility] Urine Urine specimen obtained by clean catch procedure / Unknown Non-blood Collection / Unknown 03/28/2024 10:13 AM EST 03/28/2024 10:13 AM EST Camilo Farrell MD LAB URINE ORDERABLES F inal Result Performing Organization Address City/[facility]/ZIP Co de Phone Number [facility] [address] [place] [address], [place] [phone] * Hemoglobin A1c (03/28/2024 10:13 AM EST) Pathologist [facility] Hemoglobin A1C 5.9 <6.5 % LAB CHEMISTRY METHOD 03/28/2024 2:08 PM [facility] Mean Bld Glu Estim. 123 mg/dL LAB CHEMISTRY METHOD 03/28/2024 2:08 PM [facility] Blood Venous blood specimen / Unknown Venipuncture / Unknown 03/28/2024 10:13 AM EST 03/28/2024 10:13 AM EST Camilo Farrell MD LAB BLOOD ORDERABLES F inal Result Performing Organization Address City/[facility]/ZIP Co de Phone Number [facility] [address] [place] [address], [place] [phone] * (ABNORMAL) Comprehensive metabolic panel (03/28/2024 10:13 AM EST) Pathologist [facility] Sodium 136 133 - 145 mmol/L LAB CHEMISTRY METHOD 03/28/2024 12:33 PM [facility] Potassium 4.1 3.5 - 5.5 mmol/L LAB CHEMISTRY METHOD 03/28/2024 12:33 PM [facility] Chloride 106 96 - 110 mmol/L LAB CHEMISTRY METHOD 03/28/2024 12:33 PM [facility] CO2 20(L) 21 - 32 mmol/L LAB CHEMISTRY METHOD 03/28/2024 12:33 PM [facility] Anion Gap 10 3 - 11 LAB CHEMISTRY METHOD 03/28/2024 12:33 PM [facility] Glucose 125(H) 70 - 100 mg/dL LAB CHEMISTRY METHOD 03/28/2024 12:33 PM [facility] BUN 19 5 - 25 mg/dL LAB CHEMISTRY METHOD 03/28/2024 12:33 PM [facility] Creatinine 1.27 0.70 - 1.30 mg/dL LAB CHEMISTRY METHOD 03/28/2024 12:33 PM [facility] eGFR 61 >=60 mL/min/1. 73m2 LAB CHEMISTRY METHOD 03/28/2024 12:33 PM [facility] Comment:Calculation based on the??Chronic Kidney Disease Epidemiology Collaboration (CKD-EPI) equation refit??without adjustment for race. BUN/Creatinine Ratio 15.0 LAB CHEMISTRY METHOD 03/28/2024 12:33 PM [facility] Calcium 9.8 8.5 - 10.5 mg/dL LAB CHEMISTRY METHOD 03/28/2024 12:33 PM [facility] AST (SGOT) 77(H) 10 - 42 unit/L LAB CHEMISTRY METHOD 03/28/2024 12:33 PM [facility] ALT (SGPT) 45 10 - 60 unit/L LAB CHEMISTRY METHOD 03/28/2024 12:33 PM [facility] Alkaline Phosphatase 99 42 - 121 unit/L LAB CHEMISTRY METHOD 03/28/2024 12:33 PM [facility] Total Protein 7.7 6.0 - 8.0 g/dL LAB CHEMISTRY METHOD 03/28/2024 12:33 PM [facility] Albumin 4.0 3.2 - 5.0 g/dL LAB CHEMISTRY METHOD 03/28/2024 12:33 PM EST [facility] Total Bilirubin 0.5 0.0 - 1.4 mg/dL LAB CHEMISTRY METHOD 03/28/2024 12:33 PM EST [facility] Blood Venous blood specimen / Unknown Venipuncture / Unknown 03/28/2024 10:13 AM EST 03/28/2024 10:13 AM EST Camilo Farrell MD LAB BLOOD ORDERABLES F inal Result [facility] [address] [place] [address], [place] [phone] * Hepatitis C Screening (03/24/2023) [facility] Hepatitis C Screening abstracted Historical Provider HEALTH MAINTENANCE Final Result from Last 3 Months or Most Recently Relevant to Health Maintenance Insurance [employer] MED[employer]ARE ADVANTAGE Advance Directives Documents on File Type Date Recorded Patient Infrastructure Administrator Expl anation Health Care Decision (hx) 07/20/2023 HE ALTH CARE PROXY Health Care Decision (hx) 07/20/2023 HE ALTH CARE PROXY Health Care Decision (hx) 07/20/2023 HE ALTH CARE PROXY Care Teams Rn Concurrent Review Relationship Specialty Start Date End Date Adithya Johnson [address] [place] [address] PCP - General Internal Medicine 06/22/24
--- OUTSIDE RECORDS SUMMARY | 2024-09-04 10:37 | XMS_ITS | Encounter Summary ---
Author Organization [facility] Address [address] [place] [address] Care Team Providers Care Chief Hospital Administrator Name Role Phone Unknown Primary Care Provider [phone] Encounter Details Date Type Department Care Team (Late st Contact Info) Description 05/24/2022 Telephone [facility] [place] [address] [place] [address] Keven Alaniz PA [address] [place] [address] Social History Tobacco Use Types Packs/Day Years Used Date Smoking Tobacco: Never Assessed Sex and Gender Information Value Date Recorded Sex Assigned at Not on file Legal Sex Male 1:27 PM EDT Gender Identity Not on file Sexual Orientation Not on file documented as of this encounter Plan of Treatment Not on file documented as of this encounter Visit Diagnoses Not on filedocumented in this encounter Care Teams Chief Hospital Administrator Relationship Specialty Start Date End Date Unknown Unknow Provider Address PCP - General 01/18/22 documented as of this encounter
--- OUTSIDE RECORDS SUMMARY | 2024-09-04 10:37 | XMS_ITS | Clinical Summary ---
Author Organization [facility] Address [address] [place] [address] Care Team Providers Care Stogie Packer Name Role Phone Unavailable Primary Care Provider [...] Personal/Family Self 1955 [address] [place] [address]
--- OUTSIDE RECORDS SUMMARY | 2024-09-04 10:37 | XMS_ITS | Clinical Summary ---
Author Organization [facility] Address [address] [place] [address] Care Team Providers Care Chief Crna Name Role Phone Unknown Primary Care Provider [phone] Allergies No known active allergies Medications PARoxetine (PAXIL) 40 MG tablet Take 40 mg by mouth every morning. Active allopurinol (ZYLOPRIM) 100 mg tablet Take 100 mg by mouth daily. Active alclometasone (ACLOVATE) 0.05 % cream APPLY CREAM TOPICALLY TO AFFECTED AREA TWICE DAILY FOR 2 WEEKS THEN NEEDED FOR FLARE UPS (MIX 50/50 WITH NYSTATIN CREAM) 2 Active elvitegravir-cob icistat-emtricit abine-tenofovir alafenamide (Genvoya) [phone] mg tablet Take 1 tablet by mouth daily. 2 Active ketoconazole (NIZORAL) 2 % shampoo 2 Active lidocaine (XYLOCAINE) 2 % solution 5 mL by Transmucosal route. 2 Active lisinopril (PRINIVIL,ZeSTRI L) 10 MG tablet Take 10 mg by mouth daily. 2 Active mupirocin (BACTROBAN) 2 % ointment APPLY OINTMENT TOPICALLY TO OPEN WOUND TWICE DAILY NEEDED UP TO 2-3 WEEKS 2 Active nystatin (MYCOSTATIN) 127955 UNIT/GM cream APPLY CREAM TOPICALLY TWICE DAILY FOR 2 WEEKS NEEDED (MIX 50/50 WITH ALCLOMETASONE) 2 Active valACYclovir (VALTREX) 1000 MG tablet TAKE 1 TABLET BY MOUTH TWICE DAILY FOR 5 DAYS 2 Active benzonatate (TESSALON) 200 MG capsuleIndicatio ns:Acute cough Take 1 capsule (200 mg total) by mouth 3 (three) times a day as needed for cough. 21 capsule 2 Active ibuprofen (MOTRIN) 200 MG tabletIndication s:Fever, unspecified fever cause Take 1 tablet (200 mg total) by mouth 4 times daily (every 6 hours) as needed for fever. 30 tablet 2 Active proMETHAZINE-dex tromethorphan (proMETHAZINE-DM ) 6.25-15 MG/5ML syrupIndications :Acute bronchitis with bronchospasm Take 5 mL by mouth 4 times daily (every 6 hours) as needed for cough. 120 mL 2 Active albuterol (PROVENTIL HFA; VENTOLIN HFA) 108 (90 Base) MCG/ACT inhalerIndicatio ns:Acute bronchitis with bronchospasm Inhale 2 puffs every 4 (four) hours as needed for wheezing or shortness of breath. 1 each 2 Active predniSONE (DELTASONE) 20 MG tabletIndication s:Acute gout of left foot, unspecified cause Take 3 tablets for 3 days, then 2 tablets for 3 days, and then 1 tablet for 3 days. Take with food. 18 tablet 3 Active azithromycin (ZITHROMAX) 250 MG tabletIndication s:Diverticulitis Take 2 tabs PO on day one and one tabs on days 2-5 #6 6 tablet 3 Active Active Problems Problem Noted Date Diagnosed [...] 5.4 07/06/2017 The 10-year ASCVD risk score (Bryanjason BARRIENTOS Jr., et al., 2013) is: 16% Values used to calculate the score: Age: 64 years Sex: Male Is Non- : No Diabetic: No Tobacco smoker: No Systolic Blood Pressure: 120 mmHg Is BP treated: Yes HDL Cholesterol: 51 mg/dL Total Cholesterol: 243 mg/dL Pt given handouts and recommended to visit [email or web address] HIV (human immunodeficiency virus infection) 12/2016 [...] veins of both lower extremities 017 Immunizations Immunization Administration Dates Next Due Influenza, Quadrivalent (FLU [...] or Tdap) 01/16/2022 01/17/2012, 10/24/2006 Influenza Vaccine 11/23/2024 03/12/2019, , 02/13/2014, Additional history exists Pneumococcal Vaccines 50+ Completed 2018, 09/11/2018, 09/01/2007, Additional history exists Insurance Care Teams Chief Crna Relationship Specialty Start Date End Date Unknown Unknow Provider Address PCP - General 01/18/22
[2024-09-04 11:16] LABS: MANUAL DIFF FLAG NO
[2024-09-04 11:41] LABS: Estimated Average Glucose 148 mg/dL; Hemoglobin A1C 202.2785 umol/L; Hemoglobin A1c % 6.8 % (<6.0); Total Hemoglobin (HGBA1C) 3973.9483 umol/L
[2024-09-04 11:46] LABS: Basophils Percent Auto 0.3 % (0-2); Eosinophils Absolute Auto 0.2 X10*3/uL (0.0-0.4); Eosinophils Percent Auto 2.9 % (0-4); Hematocrit 43.7 % (42.0-52.0); Hemoglobin 15.2 g/dl (14.0-18.0); Imm Gran Abs Auto 0.02 X10*3/uL (0.00-0.03); Imm Gran Pct Auto 0.3 % (0.0-0.4); Lymphocytes Absolute Auto 2.7 X10*3/uL (1.2-4.9); Lymphocytes Percent Auto 37.7 % (20-40); Mean Corpuscular HGB Conc 34.8 g/dl (31.0-36.0); Mean Corpuscular Hemoglobin 30.8 pg (27.0-33.0); Mean Corpuscular Volume 88.5 fL (80.0-98.0); Mean Platelet Volume 10.3 fL (9.4-12.4); Monocytes Absolute Auto 0.7 X10*3/uL (0.1-1.2); Monocytes Percent Auto 10.2 % (2-11); Neutrophils Absolute Auto 3.5 x10*3/uL (2.0-8.3); Neutrophils Percent Auto 48.6 % (45-73); Platelet Count 179 X10*3/uL (160-400); Red Blood Count 4.94 X10*6/uL (4.60-5.80); Red Cell Distribution Width 13.2 % (11.0-16.0); White Blood Count 7.2 X10*3/uL (4.8-10.8)
[2024-09-04 12:50] LABS: Anion Gap 17 (12-20)
[2024-09-04 12:56] LABS: Alanine Aminotransferase 37 U/L (0-40); Albumin Level 4.3 g/dL (3.5-5.0); Alkaline Phosphatase 101 U/L (39-117); Aspartate Amino Transferase 85 U/L (5-37); Bilirubin Direct 0.3 mg/dL (0.0-0.5); Bilirubin Total 1.2 mg/dL (0.0-1.0); Blood Urea Nitrogen 14 mg/dL (9-16); Calcium 9.4 mg/dL (8.4-10.2); Carbon Dioxide 19 mmol/L (22-29); Chloride 104 mmol/L (96-108); Cholesterol 188 mg/dL (<200); Estimated Glomerular Filt Rate > 60; Glucose Random 155 mg/dL (60-115); HDL Cholesterol 34 mg/dL (>40); LDL Cholesterol Calculated 109 mg/dL (<100); Potassium 3.8 mmol/L (3.3-5.1); Sodium 136 mmol/L (135-145); Total Protein 7.6 g/dL (6.5-8.0); Triglycerides 226 mg/dL (<150)
[2024-09-04 13:03] LABS: Alanine Aminotransferase 39 U/L (0-40); Albumin Level 4.2 g/dL (3.5-5.0); Alkaline Phosphatase 100 U/L (39-117); Anion Gap 16 (12-20); Aspartate Amino Transferase 87 U/L (5-37); Bilirubin Total 1.2 mg/dL (0.0-1.0); Blood Urea Nitrogen 14 mg/dL (9-16); Calcium 9.3 mg/dL (8.4-10.2); Carbon Dioxide 19 mmol/L (22-29); Chloride 104 mmol/L (96-108); Cholesterol 185 mg/dL (<200); Estimated Glomerular Filt Rate > 60; Glucose Random 153 mg/dL (60-115); HDL Cholesterol 32 mg/dL (>40); LDL Cholesterol Calculated 109 mg/dL (<100); Potassium 3.8 mmol/L (3.3-5.1); Sodium 135 mmol/L (135-145); Total Protein 7.5 g/dL (6.5-8.0); Triglycerides 223 mg/dL (<150)
[2024-09-04 13:14] LABS: CT PCR NOT DETECTED (Not Detect.); NG PCR NOT DETECTED (Not Detect.); Reflex LDLD? No
[2024-09-04 16:03] LABS: Uric Acid 5.1 mg/dL (3.4-7.0)
[2024-09-05 08:32] LABS: Syphilis Screen Nonreactive (Nonreactive)
[2024-09-05 08:37] LABS: HBsAGNum1 0.28 S/CO (0.00-0.99); Hepatitis B Surface Antigen Negative (Negative)
[2024-09-05 11:53] LABS: ~HepC Num2 0.87; ~HepC Num3 0.86; ~Hepatitis C Antibody GRAYZONE (Nonreactive)
[2024-09-06 13:13] LABS: HIV RNA PCR Qn Copies NOT DETECTED copies/mL (NOT DETECTED); HIV RNA PCR Qn Log Copies NOT DETECTED (NOT DETECTED)
[2024-09-06 23:33] LABS: TS Negative Control Passed; TS Panel A 0; TS Panel B 0; TS Positive Control Passed; TSpotTB Negative (Negative)
[2024-09-08 13:58] LABS: HCV Log PCR <1.18 NOT DETECTED Log IU/mL (NOT DETECTED); HepC Viral Load <15 NOT DETECTED IU/mL (NOT DETECTED)
[2024-09-09 21:28] LABS: Absolute CD3 Count 1427 cells/uL (840-3060); Absolute CD4 Count 694 cells/uL (490-1740); Absolute CD8 Count 732 cells/uL (180-1170); Absolute Lymphocytes 1705 cells/uL (850-3900); CD4 CD8 Ratio 0.95 (0.86-5.00); Percent CD3 Cells 84 % (57-85); Percent CD4 Cells 41 % (30-61); Percent CD8 Cells 43 % (12-42)
== END 2024-09-04 09:51 | disposition home or self-care (01) ==
LOC: HO.HHCL 09:50
PROVIDERS: Internal Medicine; Visit Provider Student in an Organized Health Care Education/Training Program
DX: Z21 Asymptomatic human immunodeficiency virus [HIV] infection status (principal); E78.00 Pure hypercholesterolemia, unspecified; Z13.1 Encounter for screening for diabetes mellitus
CPT/HCPCS: 36415; 80053; 80061; 82248; 82550; 83036; 84550; 85025; 86359; 86360; 86481; 86780; 86803; 87340; 87491; 87522; 87536; 87591

== ENCOUNTER 2024-09-06 10:30 | Outpatient (REF) | payer MEDICARE, SELFPAY ==
--- OUTSIDE RECORDS SUMMARY | 2024-09-06 11:41 | XMS_ITS | Clinical Summary ---
Author Organization [facility] Address [address] [place] [address] Care Team Providers Care Clinical Services Manager Name Role Phone Unknown Primary Care Provider [phone] Allergies No known active allergies Medications PARoxetine [...] 2 Active elvitegravir-cob icistat-emtricit abine-tenofovir alafenamide (Genvoya) [phone] mg tablet Take 1 tablet by mouth [...] TO 2-3 WEEKS 2 Active nystatin (MYCOSTATIN) 182495 UNIT/GM cream APPLY CREAM TOPICALLY TWICE DAILY [...] handouts and recommended to visit [email or web address] HIV (human immunodeficiency virus infection) 12/2016 [...] 09/01/2007, Additional history exists Insurance Care Teams Clinical Services Manager Relationship Specialty Start Date End Date Unknown Unknow Provider Address PCP - General 01/18/22
--- OUTSIDE RECORDS SUMMARY | 2024-09-06 11:41 | XMS_ITS | Clinical Summary ---
Author Organization [facility] Address [address] [place] [address] Care Team Providers Care Central Supply Aide Name Role Phone Unavailable Primary Care Provider [...] Personal/Family Self 1955 [address] [place] [address]
--- OUTSIDE RECORDS SUMMARY | 2024-09-06 11:41 | XMS_ITS | Encounter Summary ---
Author Organization [facility] Address [address] [place] [address] Care Team Providers Care Boarding Specialist Name Role Phone Unknown Primary Care Provider [phone] Encounter Details Date Type Department Care Team (Late st Contact Info) Description 05/24/[address] [facility] [place] [address] [place] [address] Keven Alaniz PA [address] [place] [address] Social History Tobacco Use Types Packs/Day Years [...] on filedocumented in this encounter Care Teams Boarding Specialist Relationship Specialty Start Date End Date Unknown Unknow Provider Address PCP - General 01/18/22 documented as of this encounter
--- OUTSIDE RECORDS SUMMARY | 2024-09-06 11:41 | XMS_ITS | Clinical Summary ---
Author Organization [employer] Address [address] [place] [address] Care Team Providers Care Die Inspector Name Role Phone Adithya Johnson Primary Care Provide r Allergies No known active allergies Medications acetaminophen (TYLENOL) 500 mg tablet Take 2 tablets (1,000 mg total) by mouth every 8 (eight) hours if needed. 4 Active elvitegravir-cob icistat-emtricit abine-tenofovir alafenamide (Genvoya) [phone] mg per tablet Take 1 tablet by [...] New onset type 2 diabetes me llitus ([facility] V24, [facility] V28) 03/27/2024 Other hyperlipidemia 03/27/2024 Asymptomatic HIV infection, with no history of HIV-related illness ([facility] V24, [facility] V28) 03/27/2024 History of hepatitis C 03/27/2024 Overview (03/27/2024): Completed treatment course. Viral loads have been negative Primary osteoarthritis of left knee 02/22/2023 Overview (03/27/2024): S/p left knee total replacement june 2023 Stage 3a chronic kidney disease ([facility] V24, S/[facility] V28) 11/12/2022 Transaminitis 11/12/2022 Chronic gout without [...] given handouts and recommended to visit [email or web address] 78 Last Assessment & Plan: Patient advised [...] given handouts and recommended to visit [email or web address]/symptoms-[email or web address] 78 Overweight (BMI 25.0-29.9) 07/01/2016 1 05/28/2023 [...] PM EDT Office Visit Orthopedic Surgery - [place] [address] [facility] [address] [place] [address] Adithya Rubio MD Post-operative state (Primary Dx); Status post total left knee replacement; Status post bilateral knee replacements 06/25/2024 3:01 PM EST Anesthesia Event [facility] Endoscopy [address] [place] [address] Raulito Mcdaniel DO 06/25/2024 2:06 PM EST - 06/25/2024 11:59 PM EST Hospital Encounter [facility] Endoscopy [address] [place] [address] Hector Pradhan MD Walsh, Michael, DO Swanson, [...] forehead 2020 HIV (human immunodeficiency virus infection) ([facility] V24, [facility] V28) Colon polyp Social History Tobacco Use [...] for your loved ones. For example, child support case officer or elderly care for an older adult? [...] PM EDT Office Visit Orthopedic Surgery - [place] [address] [address] Adithya Rubio MD [address] [address] Health Maintenance Due Date Last Done Comments [...] this topic Medical Devices Implanted Type Area It Desktop Support Specialist Device Identifier Shelf Expiration Date Model / [...] Result * COLONOSCOPY Anesthesia - MAC; [facility] ENDOSCOPY (06/25/2024 3:28 PM EST) Anatomical [...] clinic PRN. Narrative 06/25/2024 3:26 PM EST [facility] GI Patient Name: Hugo Alejandro Procedure [...] neoplasm ? of colon CPT copyright 2020 [employer]. All rights reserved. The codes documented in this report are preliminary and upon cabinet and trim installer review may be revised to meet current compliance requirements. Hector Pradhan MD 06/25/2024 3:26:15 PM This report has been signed electronically.Hector Pradhan MD Number of Addenda: 0 Note Initiated On: 06/25/2024 2:52 PM Scope In: Scope Out: ? Endoscopy Department at [facility] - [address] [place] [address], ? [place] [address] Procedure Note Hector Pradhan MD - 06/25/2024 [facility] GI Patient Name: Hugo Alejandro Procedure [...] for malignantneoplasm of colon CPT copyright 2020 [employer]. All rights reserved. The codes documented in this report are preliminary and upon cabinet and trim installer reviewmay be revised to meet current compliance requirements. Hector Pradhan MD 06/25/2024 3:26:15 PM This report has been signed electronically.Hector Pradhan MD Number of Addenda: 0 Note Initiated On: 06/25/2024 2:52 PM Scope In: Scope Out: Endoscopy Department at [facility] - [address] [place] [phone] IMPRESSION: - Diverticulosis in the left colon. [...] mg/dL LAB CHEMISTRY METHOD 03/28/2024 12:33 PM [facility] Triglycerides 252(H) 0 - 150 mg/dL LAB CHEMISTRY METHOD 03/28/2024 12:33 PM [facility] HDL 36(L) >=40 mg/dL LAB CHEMISTRY METHOD 03/28/2024 12:33 PM [facility] LDL Calculated 159(H) 0 - 100 mg/dL LAB CHEMISTRY METHOD 03/28/2024 12:33 PM [facility] VLDL Cholesterol Chip 50.4 mg/dL LAB CHEMISTRY METHOD 03/28/2024 12:33 PM [facility] Non HDL Chol. (LDL+VLDL) 209(H) <145 mg/dL LAB CHEMISTRY METHOD 03/28/2024 12:33 PM [facility] Chol/HDL Ratio 6.8(H) 0.0 - 4.4 LAB CHEMISTRY METHOD 03/28/2024 12:33 PM [facility] Blood Venous blood specimen / Unknown Venipuncture / Unknown 03/28/2024 10:13 AM EST 03/28/2024 10:13 AM EST Camilo Farrell MD LAB BLOOD ORDERABLES F inal Result [facility] [address] [place] [address], [place] [phone] * (ABNORMAL) Microalbumin creatinine urine ratio (03/28/2024 10:13 AM EST) Creatinine, Urine 200.0 mg/dL LAB CHEMISTRY METHOD 03/28/2024 1:06 PM [facility] Microalb, Ur 67.1(H) 0.0 - 29.0 mg/L LAB CHEMISTRY METHOD 03/28/2024 1:06 PM [facility] Microalb/Crea t Ratio 34(H) <30 mg/g creat LAB CHEMISTRY METHOD 03/28/2024 1:06 PM [facility] Urine Urine specimen obtained by clean catch procedure / Unknown Non-blood Collection / Unknown 03/28/2024 10:13 AM EST 03/28/2024 10:13 AM EST Camilo Farrell MD LAB URINE ORDERABLES F inal Result Performing Organization Address City/[facility]/ZIP Co de Phone Number [facility] [address] [place] [address], [place] [phone] * Hemoglobin A1c (03/28/2024 10:13 AM EST) Pathologist [facility] Hemoglobin A1C 5.9 <6.5 % LAB CHEMISTRY METHOD 03/28/2024 2:08 PM [facility] Mean Bld Glu Estim. 123 mg/dL LAB CHEMISTRY METHOD 03/28/2024 2:08 PM [facility] Blood Venous blood specimen / Unknown Venipuncture / Unknown 03/28/2024 10:13 AM EST 03/28/2024 10:13 AM EST Camilo Farrell MD LAB BLOOD ORDERABLES F inal Result Performing Organization Address City/[facility]/ZIP Co de Phone Number [facility] [address] [place] [address], [place] [phone] * (ABNORMAL) Comprehensive metabolic panel (03/28/2024 10:13 AM EST) Pathologist [facility] Sodium 136 133 - 145 mmol/L LAB CHEMISTRY METHOD 03/28/2024 12:33 PM [facility] Potassium 4.1 3.5 - 5.5 mmol/L LAB CHEMISTRY METHOD 03/28/2024 12:33 PM [facility] Chloride 106 96 - 110 mmol/L LAB CHEMISTRY METHOD 03/28/2024 12:33 PM [facility] CO2 20(L) 21 - 32 mmol/L LAB CHEMISTRY METHOD 03/28/2024 12:33 PM [facility] Anion Gap 10 3 - 11 LAB CHEMISTRY METHOD 03/28/2024 12:33 PM [facility] Glucose 125(H) 70 - 100 mg/dL LAB CHEMISTRY METHOD 03/28/2024 12:33 PM [facility] BUN 19 5 - 25 mg/dL LAB CHEMISTRY METHOD 03/28/2024 12:33 PM [facility] Creatinine 1.27 0.70 - 1.30 mg/dL LAB CHEMISTRY METHOD 03/28/2024 12:33 PM [facility] eGFR 61 >=60 mL/min/1. 73m2 LAB CHEMISTRY METHOD 03/28/2024 12:33 PM [facility] Comment:Calculation based on the??Chronic Kidney Disease Epidemiology Collaboration (CKD-EPI) equation refit??without adjustment for race. BUN/Creatinine Ratio 15.0 LAB CHEMISTRY METHOD 03/28/2024 12:33 PM [facility] Calcium 9.8 8.5 - 10.5 mg/dL LAB CHEMISTRY METHOD 03/28/2024 12:33 PM [facility] AST (SGOT) 77(H) 10 - 42 unit/L LAB CHEMISTRY METHOD 03/28/2024 12:33 PM [facility] ALT (SGPT) 45 10 - 60 unit/L LAB CHEMISTRY METHOD 03/28/2024 12:33 PM [facility] Alkaline Phosphatase 99 42 - 121 unit/L LAB CHEMISTRY METHOD 03/28/2024 12:33 PM [facility] Total Protein 7.7 6.0 - 8.0 g/dL LAB CHEMISTRY METHOD 03/28/2024 12:33 PM [facility] Albumin 4.0 3.2 - 5.0 g/dL LAB CHEMISTRY METHOD 03/28/2024 12:33 PM EST [facility] Total Bilirubin 0.5 0.0 - 1.4 mg/dL LAB CHEMISTRY METHOD 03/28/2024 12:33 PM EST [facility] Blood Venous blood specimen / Unknown Venipuncture / Unknown 03/28/2024 10:13 AM EST 03/28/2024 10:13 AM EST Camilo Farrell MD LAB BLOOD ORDERABLES F inal Result [facility] [address] [place] [address], [place] [phone] * Hepatitis C Screening (03/24/2023) [facility] Hepatitis C Screening abstracted Historical Provider HEALTH MAINTENANCE Final Result from Last 3 Months or Most Recently Relevant to Health Maintenance Insurance [employer] MED[employer]VANTAGE Advance Directives Documents on File Type Date Recorded Patient Extrusion Die Repair Manager Expl anation Health Care Decision (hx) 07/20/2023 HE ALTH CARE PROXY Health Care Decision (hx) 07/20/2023 HE ALTH CARE PROXY Health Care Decision (hx) 07/20/2023 HE ALTH CARE PROXY Care Teams Die Inspector Relationship Specialty Start Date End Date Adithya Johnson [address] [place] [id number] PCP - General Internal Medicine 06/22/24
[2024-09-06 12:00] LABS: C Reactive Protein 0.37 mg/dL (< or = 0.50)
[2024-09-06 12:01] LABS: Rheumatoid Factor < 13.0 IU/mL (<15.0)
[2024-09-06 12:03] LABS: Estimated Average Glucose 151 mg/dL; Hemoglobin A1C 197.8572 umol/L; Hemoglobin A1c % 6.9 % (<6.0)
[2024-09-06 12:26] LABS: Erythrocyte Sedimentation Rate 8 MM/HR (0-15)
[2024-09-06 12:31] LABS: ~HepC Num1 0.85 S/CO (0.00-0.79)
[2024-09-06 13:21] LABS: ~HepC Num2 0.87
[2024-09-06 13:22] LABS: ~HepC Num3 0.85; ~Hepatitis C Antibody GRAYZONE (Nonreactive)
[2024-09-08 13:58] LABS: HCV Log PCR <1.18 NOT DETECTED Log IU/mL (NOT DETECTED); HepC Viral Load <15 NOT DETECTED IU/mL (NOT DETECTED)
[2024-09-12 15:39] LABS: ANA Pattern 2 Nuclear, Speckled; ANA Titer 2 1:40 titer; Anti Nuclear Antibody Screen POSITIVE (NEGATIVE); Anti Nuclear Antibody Titer 1:40 titer
== END 2024-09-06 10:31 | disposition home or self-care (01) ==
LOC: HO.HHCL 10:30
PROVIDERS: Visit Provider Student in an Organized Health Care Education/Training Program
DX: Z13.1 Encounter for screening for diabetes mellitus (principal); Z21 Asymptomatic human immunodeficiency virus [HIV] infection status; Z86.19 Personal history of other infectious and parasitic diseases
CPT/HCPCS: 36415; 82550; 83036; 85652; 86038; 86039; 86140; 86431; 86803; 87522

== ENCOUNTER 2024-09-14 11:21 | Outpatient (REF) | payer MEDICARE, SELFPAY ==
--- OUTSIDE RECORDS SUMMARY | 2024-09-14 11:24 | XMS_ITS | Clinical Summary ---
Author Organization [facility] Address [address] [place] [address] Care Team Providers Care Fuel Efficient Aircraft Designer Name Role Phone Unavailable Primary Care Provider [...] Personal/Family Self 1955 [address] [place] [address]
[2024-09-14 14:41] LABS: Alanine Aminotransferase 40 U/L (0-40); Aspartate Amino Transferase 78 U/L (5-37); Lactate Dehydrogenase 247 U/L (118-273)
[2024-09-14 14:57] LABS: TSH reflex Free T4 1.28 uIU/mL (0.32-4.0)
[2024-09-18 21:38] LABS: SM/Ribonucleoprotein Ab <1.0 NEG AI (<1.0 NEG); Smith Protein <1.0 NEG AI (<1.0 NEG)
[2024-09-19 15:58] LABS: Centromere Protein A Ab <11 SI (<11); Centromere Protein B Ab <11 SI (<11); Fibrillarin Ab <11 SI (<11); PM SCL 100 Ab <11 SI (<11); PM SCL 75 Ab <11 SI (<11); RNA Polymerase III RP11 Ab <11 SI (<11); RNA Polymerase III RP155 Ab <11 SI (<11); SCL-70 Extractable Nuclear Ab <11 SI (<11); Th-To Ab <11 SI (<11); U1 SNRNP RNP 70KD <11 SI (<11); U1 SNRNP RNP A <11 SI (<11); U1 SNRNP RNP C <11 SI (<11)
== END 2024-09-14 11:22 | disposition home or self-care (01) ==
LOC: HO.CHCLDS 11:21
PROVIDERS: Visit Provider Internal Medicine
DX: R74.8 Abnormal levels of other serum enzymes (principal)
CPT/HCPCS: 36415; 82085; 83615; 84182; 84443; 84450; 84460; 86235

== ENCOUNTER 2024-10-07 14:54 | Emergency (ER) | payer MEDICARE, SELFPAY ==
[2024-10-07] VITALS (8 sets, daily range): BP systolic 130–160; BP diastolic 80–112; PULSE 82–121; RESP 16–20; TEMP 36.8–37.2; O2SAT 94–97; BMI 30.1
--- NOTE | ~2024-10-07 | CT_ITS ---
CLINICAL HISTORY: abd pain, distension CT abdomen and pelvis with contrast Comparison: CT - CT ABDOMEN PELVIS W IV CON - 10/07/24 17:59 EDT Findings: No consolidation or effusion. Unremarkable gallbladder and solid organs. No urolithiasis. No bowel obstruction, pneumoperitoneum, or pneumatosis. Moderate hiatal hernia. Diverticulosis of the descending and sigmoid colon. Pelvic contents unremarkable. Normal appendix. The bones are intact. IMPRESSION: No acute findings. This document has been electronically signed by: Sanjiv Oneill MD on 10/07/2024 19:26:52
--- NOTE | ~2024-10-07 | XR_ITS ---
CLINICAL HISTORY: SOB 1 view chest x-ray Comparison: None Findings: No consolidation or effusion. Normal size heart. No acute fracture. IMPRESSION: 1. No acute findings. This document has been electronically signed by: Sanjiv Oneill MD on 10/07/2024 18:40:01
--- NOTE | 2024-10-07 15:20 | ED.ABDPAIN ---
HPI - Abdominal Pain General Chief Complaint: Abdominal Pain Stated Complaint: ABD PAIN,DISTENDED,DIARRHEA,FROM URG CARE PER EMS Time Seen by Provider: 10/07/24 15:20 Source: patient and RN notes reviewed Mode of arrival: ambulatory Limitations: no limitations History of Present Illness ED Provider: Eboni Farrell PA-C HPI narrative: This is a 69-year-old male, with a history of diverticulosis, prediabetic, and gout, who presents emergency department with concerns abdominal pain for the 2-3 days. Patient reports that over the last 2-3 days he has felt as though his abdomen is distended. He states that he has associated nausea, and feels as though he can not have a bowel movement. He states that he has not passed any gas. He states that he had an episode of diarrhea today. Denies any bloody or black stool. He states that he has a history of diverticulosis, and states that his symptoms feel similar to how he felt with a diverticulitis flare. He denies any fevers or chills. Denies any chest pain or shortness of breath. He does admit to drinking alcohol daily. States that he has several beers and several shots of whiskey. He denies any urinary symptoms. Denies any fevers, chills, congestion, cough, vomiting. No other complaints or concerns at this time. He does report that he did have a punch biopsy performed by [facility] several days ago, and has noticed slight redness to his right foot. He reports he has a history of gout however states that his gouty flare-ups do not occur in his area. MD elicited complaint: abdominal pain Pertinent past history: diverticulitis Onset (ago): day(s) Pain Consistency: constant Location: diffuse Severity: moderate Quality: cramping and fullness Radiation: none Migration to: no migration Exacerbating factors: nothing Relieving factors: nothing Associated symptoms: nausea Related Data Home Medications ?Medication ?Instructions ?Recorded ?Confirmed allopurinol 100 mg tablet 100 mg PO DAILY 05/10/23 05/10/23 Previous Rx's ?Medication ?Instructions ?Recorded albuterol sulfate 90 mcg/actuation 2 puff inhalation Q6H PRN 04/26/23 aerosol inhaler shortness of breath or wheezing #6.7 grams amoxicillin 875 mg-potassium 1 tab PO BID #14 tabs 07/24/24 clavulanate 125 mg tablet doxycycline hyclate 100 mg capsule 100 mg PO BID #14 caps 10/07/24 Allergies Allergy/AdvReac Type Severity Reaction Status Date / Time No Known Allergies Allergy Verified 10/07/24 15:12 Review of Systems Review of Systems Yes all other systems are reviewed and are negative Constitutional: Reports as per [facility] Social History Social History Patient Tobacco Use Status: Never used Tobacco Smoked in Last 30 Days: No Use of substances other than those prescribed or required for medical reasons: No Advance Directives: No Advance Directives Information Provided: No Physical Exam ED Vital Signs: Vital Signs - 24 hr 10/07/24 15:03 10/07/24 15:08 10/07/24 15:41 Temperature 99.0 F 98.4 F Pulse Rate 96 100 Respiratory Rate 20 18 18 Blood Pressure 159/112 H 159/112 H Pulse Oximetry 97 95 Oxygen Delivery Method Room Air Room Air 10/07/24 16:45 10/07/24 18:00 Temperature 98.6 F Pulse Rate 87 86 Respiratory Rate 18 18 Blood Pressure 160/94 H 150/91 H Pulse Oximetry 97 96 Oxygen Delivery Method Room Air Room Air BMI result Body Mass Index 30.1 Const General: cooperative, comfortable and no acute distress Orientation/consciousness: patient oriented x3 Limitations: no limitations HENMT Head: Yes normal to inspection, Yes normocephalic and Yes atraumatic Ears: hearing grossly normal bilaterally General nose exam: Normal external nose present Face and sinus: Yes normal facial exam Mouth: Normal oral and palatal mucosa present, oropharynx normal and moist mucous membranes Throat: Yes posterior oropharynx normal Eyes General: appearance normal, both eyes and all related structures Eyelids: Yes eyelids normal Conjunctivae: conjunctivae normal Sclerae: sclerae normal Pupils: Equal, round and reactive pupils present EOM: EOMs intact bilaterally Neck Neck: Yes normal visual inspection, Yes full ROM and Yes no lymphadenopathy Lymphatic: no lymphadenopathy noted Chest Chest palpation & inspection: normal inspection of the chest Resp Effort & Inspection: normal respiratory effort and able to speak in complete sentences Auscultation: clear to auscultation bilaterally, no crackles, no rales, no rhonchi and no wheezes Cardio Rate: regular rate Rhythm: regular rhythm Heart sounds: S1 normal heart sound present and S2 normal heart sound present GI Other: Abdomen is soft, with diffuse tenderness throughout, without any specific point tenderness. Hyperactive bowel sounds present. No rebound or guarding. Patient reported abdominal distention. Inspection: Yes normal to inspection Skin General skin exam: no rashes or lesions noted Trauma: no lacerations or abrasions Wounds: no wounds Neuro General: patient oriented x3 and moves all extremities Cranial nerves: Yes Equal, round and reactive pupils present Extrem Other: Right foot with faint erythema and warmth overlying the dorsal aspect mildly tender to palpation, full ROM of the ankle and digits. strong DP pulse. General: Yes normal to inspection Right upper extremity: normal to inspection Left upper extremity: normal to inspection Left lower extremity: normal to inspection Course Reevaluation(s) Reevaluation #1: I Ayla Clarke PA-C have accepted care of the patient and signed out pending labs, imaging and final disposition CT abdomen and pelvis:Findings: No consolidation or effusion. Unremarkable gallbladder and solid organs. No urolithiasis. No bowel obstruction, pneumoperitoneum, or pneumatosis. Moderate hiatal hernia. Diverticulosis of the descending and sigmoid colon. Pelvic contents unremarkable. Normal appendix. The bones are intact. IMPRESSION: No acute findings. Labs: Viral swab and delta troponin flat Medical Decision Making Medical Decision Making MDM Narrative: This is a 69-year-old man who presents to the emergency room with concerns of abdominal pain, nausea, in abdominal distention for the last several days. On arrival, patient mildly hypertensive at 159/112, pulse 96, temperature 99?, oxygen saturation 97% on room air. Abdomen is soft with diffuse tenderness throughout, and patient reported abdominal distention. Differential diagnoses include SBO, diverticulitis, diverticulosis, pancreatitis. We will obtain labs, we will also medicate with 1 time dose of ceftriaxone, IV fluids, and morphine for pain management. Given concern for possible SBO, will perform CT with oral contrast. Patient does have slight erythema noted to the dorsum of his right foot. He recently had a punch biopsy on his right leg. She he does not have erythema extending from the pinch biopsy down distally towards the area of erythema. He was treated with 1 time dose of IV ceftriaxone. He is a daily drinker, drinks several beers and several shots per day. Denies history of alcohol withdrawal. Plan: Labs, IV fluids, IV pain management, IV antibiotics 1900 - labs returned, he has slight leukocytosis at 12.9, with slight left shift, ESR elevated at 18, CRP elevated at 2.4, troponin 6.3, lipase within normal limits, AST ALT slightly elevated, AST elevated at 89, ALT 48. Urine with high specific gravity, trace proteinuria, and glucose, viral swabs pending. Chest x-ray unremarkable. EKG within normal limits. Differential Diagnosis Differential Diagnoses: The differential diagnosis associated with the presentation includes See above Admission/Observation Consideration of admission/observation: Escalation of care including admission/observation considered Lab Data [facility] Lab Attestation statement: I reviewed the patient's lab results. See MDM and course 10/07/24 15:24 10/07/24 15:24 Labs: Lab Results 10/07/24 10/07/24 10/07/24 Range/Units 15:24 15:56 17:38 WBC 12.9 H (4.8-10.8) X10*3/uL RBC 4.97 (4.60-5.80) X10*6/uL Hgb 15.3 (14.0-18.0) g/dl Hct 43.0 (42.0-52.0) % MCV 86.5 (80.0-98.0) fL MCH 30.8 (27.0-33.0) pg MCHC 35.6 (31.0-36.0) g/dl RDW 13.2 (11.0-16.0) % Plt Count 197 (160-400) X10*3/uL MPV 9.8 (9.4-12.4) fL Immature Gran % (Auto) 0.4 (0.0-0.4) % Neut % (Auto) 71.9 (45-73) % Lymph % (Auto) 17.4 L (20-40) % [place] % (Auto) 9.2 (2-11) % Eos % (Auto) 0.9 (0-4) % Baso % (Auto) 0.2 (0-2) % Lymph # (Auto) 2.2 (1.2-4.9) X10*3/uL [place] # (Auto) 1.2 (0.1-1.2) X10*3/uL Eos # (Auto) 0.1 (0.0-0.4) X10*3/uL Baso # (Auto) 0.0 (0.0-0.2) X10*3/uL Abs Immat Gran (auto) 0.05 H (0.00-0.03) X10*3/uL Absolute Neuts (auto) 9.2 H (2.0-8.3) x10*3/uL Absolute Nucleated RBC 0.000 (0.0-0.012) X10*3/uL Nucleated RBC % (auto) 0.0 (0.0-0.2) /100WBC ESR 18 H (0-15) MM/HR Sodium 139 (135-145) mmol/L Potassium 4.2 (3.3-5.1) mmol/L Chloride 104 (96-108) mmol/L Carbon Dioxide 22 (22-29) mmol/L Anion Gap 17 (12-20) BUN 15 (9-16) mg/dL Creatinine 1.12 (0.5-1.4) mg/dL Estim Creat Clear Calc 70.0 Estimated GFR > 60 Random Glucose 116 H (60-115) mg/dL Lactic Acid 1.7 (0.5-2.0) mmol/L Uric Acid 3.3 L (3.4-7.0) mg/dL Calcium 9.8 (8.4-10.2) mg/dL Total Bilirubin 0.9 (0.0-1.0) mg/dL Direct Bilirubin 0.3 (0.0-0.5) mg/dL AST 89 H (5-37) U/L ALT 48 H (0-40) U/L Alkaline Phosphatase 105 (39-117) U/L Troponin I High Sens 6.3 (<3.5-35.0) ng/L C-Reactive Protein 2.40 H (< or = 0.50) mg/dL B-Natriuretic Peptide < 10 (<100) pg/mL Total Protein 7.9 (6.5-8.0) g/dL Albumin 4.6 (3.5-5.0) g/dL Lipase 22 (8-78) U/L Urine Color Dark Yellow Urine Appearance Clear Urine pH 6.5 (5.0-9.0) Ur Specific [place] >= 1.030 H (1.005-1.025) Urine Protein 100 (2+) H (Neg-Trace) mg/dL Urine Glucose (UA) >=1000 H (Negative) mg/dL Urine Ketones Trace (Negative) mg/dL Urine Blood Negative (Negative) Urine Nitrite Negative (Negative) Ur Leukocyte Esterase Negative (Negative) Urine RBC 0-2 (0-2) /HPF Urine WBC 0-5 (0-5) /HPF Ur Squamous Epith Cells 0-2 (0-2) /HPF Urine Bacteria None Seen (None Seen) Hyaline Casts 0-2 (0-2) /LPF Influenza Type A (PCR) (Negative) Influenza Type B (PCR) (Negative) RSV RNA Qual (PCR) (Negative) SARS-CoV-2 RNA (RT-PCR) (Negative) 10/07/24 10/07/24 Range/Units 18:10 19:17 WBC (4.8-10.8) X10*3/uL RBC (4.60-5.80) X10*6/uL Hgb (14.0-18.0) g/dl Hct (42.0-52.0) % MCV (80.0-98.0) fL MCH (27.0-33.0) pg MCHC (31.0-36.0) g/dl RDW (11.0-16.0) % Plt Count (160-400) X10*3/uL MPV (9.4-12.4) fL Immature Gran % (Auto) (0.0-0.4) % Neut % (Auto) (45-73) % Lymph % (Auto) (20-40) % [place] % (Auto) (2-11) % Eos % (Auto) (0-4) % Baso % (Auto) (0-2) % Lymph # (Auto) (1.2-4.9) X10*3/uL [place] # (Auto) (0.1-1.2) X10*3/uL Eos # (Auto) (0.0-0.4) X10*3/uL Baso # (Auto) (0.0-0.2) X10*3/uL Abs Immat Gran (auto) (0.00-0.03) X10*3/uL Absolute Neuts (auto) (2.0-8.3) x10*3/uL Absolute Nucleated RBC (0.0-0.012) X10*3/uL Nucleated RBC % (auto) (0.0-0.2) /100WBC ESR (0-15) MM/HR Sodium (135-145) mmol/L Potassium (3.3-5.1) mmol/L Chloride (96-108) mmol/L Carbon Dioxide (22-29) mmol/L Anion Gap (12-20) BUN (9-16) mg/dL Creatinine (0.5-1.4) mg/dL Estim Creat Clear Calc Estimated GFR Random Glucose (60-115) mg/dL Lactic Acid (0.5-2.0) mmol/L Uric Acid (3.4-7.0) mg/dL Calcium (8.4-10.2) mg/dL Total Bilirubin (0.0-1.0) mg/dL Direct Bilirubin (0.0-0.5) mg/dL AST (5-37) U/L ALT (0-40) U/L Alkaline Phosphatase (39-117) U/L Troponin I High Sens 4.7 (<3.5-35.0) ng/L C-Reactive Protein (< or = 0.50) mg/dL B-Natriuretic Peptide (<100) pg/mL Total Protein (6.5-8.0) g/dL Albumin (3.5-5.0) g/dL Lipase (8-78) U/L Urine Color Urine Appearance Urine pH (5.0-9.0) Ur Specific [place] (1.005-1.025) Urine Protein (Neg-Trace) mg/dL Urine Glucose (UA) (Negative) mg/dL Urine Ketones (Negative) mg/dL Urine Blood (Negative) Urine Nitrite (Negative) Ur Leukocyte Esterase (Negative) Urine RBC (0-2) /HPF Urine WBC (0-5) /HPF Ur Squamous Epith Cells (0-2) /HPF Urine Bacteria (None Seen) Hyaline Casts (0-2) /LPF Influenza Type A (PCR) NEGATIVE (Negative) Influenza Type B (PCR) NEGATIVE (Negative) RSV RNA Qual (PCR) NEGATIVE (Negative) SARS-CoV-2 RNA (RT-PCR) NEGATIVE (Negative) Independent Interpretation I performed an independent interpretation of an: EKG Interpretation: EKG normal sinus rhythm at a ventricular rate of 91 beats per minute, W[place] interval 164, QT QTC 374/460, no STEMI. Radiology Impression Discussion of test interpretation with radiology: I have reviewed the radiologist's reading. Radiologist Impression: Findings: No consolidation or effusion. Normal size heart. No acute fracture. IMPRESSION: 1. No acute findings. This document has been electronically signed by: Sanjiv Oneill MD on 10/07/2024 18:40:01 Dictated By: Sanjvi Oneill MD Medications Administered Discontinued Medications Generic Name Dose Route Start Last Admin Trade Name Freq PRN Reason Stop Dose Admin Ceftriaxone Sodium 1 gm 10/07/24 15:37 10/07/24 16:17 Ceftriaxone Sodium 1 Gm Vial IVPUSH 10/07/24 15:38 1 gm ONCE ONE Administration Diatrizoate Meglum/Diatrizoate Sod 30 ml 10/07/24 18:24 10/07/24 18:26 Diatrizoate Meglumine, Sodium 30 Ml Solution PO 10/07/24 18:25 30 ml ONCE ONE Administration Sodium Chloride 1,000 mls @ 999 mls/hr 10/07/24 15:34 10/07/24 18:03 Ns IV 10/07/24 16:34 Infused .Q1H1M ONE Infusion Acetaminophen 1,000 mg in 100 mls @ 400 mls/hr 10/07/24 17:53 10/07/24 18:25 Ofirmev IV 10/07/24 18:07 Infused ONCE ONE Infusion Iohexol 100 ml 10/07/24 18:23 10/07/24 18:23 Iohexol 350 Mg/Ml 100 Ml Infus..Btl IV 10/07/24 18:24 85 ml ONCE ONE Administration Morphine Sulfate 4 mg 10/07/24 15:34 10/07/24 15:41 Morphine Sulfate 4 Mg/Ml Cartridge IVPUSH 10/07/24 15:35 4 mg ONCE ONE Administration Protocol Discharge Plan Discharge Clinical Impression: Cellulitis, Constipation Patient Disposition: Home, Self-Care Instructions: Constipation (ED), Cellulitis (ED) Additional Instructions: Overall your screening labs were normal. You had a slight elevation in your serum blood glucose, you are spilling a large amount of sugar in your urine. The chest x-ray is clear, there was no concerning changes on the EKG, the CT scan of the abdomen was negative for acute process, you were found to be constipated. You are also being treated for cellulitis of the right foot. See home care instructions for both conditions. In regard to the cellulitis take the doxycycline as directed, you do not require medication until tomorrow morning. In regard to the constipation, purchase [id number] Colace, this is a stool softener, take it twice a day. You should also purchase [id number] MiraLax, use it 3 to 4 times a day, until you begin having multiple large volume bowel movements. Call your primary care provider tomorrow to schedule a follow up appointment. Prescriptions: New doxycycline hyclate 100 mg capsule 100 mg PO BID Qty: 14 0RF No Action allopurinol 100 mg tablet 100 mg PO DAILY albuterol sulfate 90 mcg/actuation HFA aerosol inhaler 2 puff inhalation Q6H PRN (Reason: shortness of breath or wheezing) Qty: 6.7 0RF amoxicillin-pot clavulanate 875-125 mg tablet 1 tab PO BID Qty: 14 0RF Print Language: Uzbek
[2024-10-07 15:29] LABS: MANUAL DIFF FLAG NO
[2024-10-07 15:30] LABS: Basophils Percent Auto 0.2 % (0-2); Eosinophils Absolute Auto 0.1 X10*3/uL (0.0-0.4); Eosinophils Percent Auto 0.9 % (0-4); Hemoglobin 15.3 g/dl (14.0-18.0); Imm Gran Abs Auto 0.05 X10*3/uL (0.00-0.03); Imm Gran Pct Auto 0.4 % (0.0-0.4); Lymphocytes Absolute Auto 2.2 X10*3/uL (1.2-4.9); Lymphocytes Percent Auto 17.4 % (20-40); Mean Corpuscular HGB Conc 35.6 g/dl (31.0-36.0); Mean Corpuscular Hemoglobin 30.8 pg (27.0-33.0); Mean Corpuscular Volume 86.5 fL (80.0-98.0); Mean Platelet Volume 9.8 fL (9.4-12.4); Monocytes Absolute Auto 1.2 X10*3/uL (0.1-1.2); Monocytes Percent Auto 9.2 % (2-11); Neutrophils Absolute Auto 9.2 x10*3/uL (2.0-8.3); Neutrophils Percent Auto 71.9 % (45-73); Platelet Count 197 X10*3/uL (160-400); Red Blood Count 4.97 X10*6/uL (4.60-5.80); Red Cell Distribution Width 13.2 % (11.0-16.0); White Blood Count 12.9 X10*3/uL (4.8-10.8)
[2024-10-07] MEDS: Morphine Sulfate 4 MG/ML CARTRIDGE IVPUSH (15:41)
[2024-10-07] MEDS: 0.9 % Sodium Chloride 1,000 ML 999 ML IV (15:44)
[2024-10-07 15:45] LABS: Alanine Aminotransferase 48 U/L (0-40); Albumin Level 4.6 g/dL (3.5-5.0); Alkaline Phosphatase 105 U/L (39-117); Anion Gap 17 (12-20); Aspartate Amino Transferase 89 U/L (5-37); Bilirubin Direct 0.3 mg/dL (0.0-0.5); Bilirubin Total 0.9 mg/dL (0.0-1.0); Blood Urea Nitrogen 15 mg/dL (9-16); Calcium 9.8 mg/dL (8.4-10.2); Carbon Dioxide 22 mmol/L (22-29); Chloride 104 mmol/L (96-108); Estimated Glomerular Filt Rate > 60; Glucose Random 116 mg/dL (60-115); Lipase 22 U/L (8-78); Potassium 4.2 mmol/L (3.3-5.1); Sodium 139 mmol/L (135-145); Total Protein 7.9 g/dL (6.5-8.0)
[2024-10-07] MEDS: cefTRIAXone sodium 1 GM VIAL IVPUSH (16:17)
[2024-10-07 16:22] LABS: Lactic Acid 1.7 mmol/L (0.5-2.0)
[2024-10-07 16:41] LABS: Uric Acid 3.3 mg/dL (3.4-7.0)
[2024-10-07 16:56] LABS: B Type Natriuretic Peptide < 10 pg/mL (<100)
[2024-10-07 17:17] LABS: Erythrocyte Sedimentation Rate 18 MM/HR (0-15)
[2024-10-07 17:45] LABS: Appearance Urine Clear; Color Urine Dark Yellow; Glucose Urine UA >=1000 mg/dL (Negative); Leukocyte Esterase Urine Negative (Negative); Nitrite Urine Negative (Negative); PH 6.5 (5.0-9.0); Specific Gravity - Urine >= 1.030 (1.005-1.025); UMIC TRIGGER UACC YES; Urine Blood Negative (Negative); Urine Ketones Trace mg/dL (Negative); Urine Protein 100 (2+) mg/dL (Neg-Trace)
[2024-10-07 17:50] LABS: Bacteria Urine None Seen (None Seen); Hyaline Casts Urine 0-2 /LPF (0-2); Squamous Epithelial Cell Urine 0-2 /HPF (0-2); WBC Urine 0-5 /HPF (0-5)
--- NOTE | 2024-10-07 17:51 | ECG_ITS ---
Test Reason : dyspnea Blood Pressure : */* mmHG Vent. Rate : 91 BPM Atrial Rate : 91 BPM P-R Int : 164 ms QRS Dur : 92 ms QT Int : 374 ms P-R-T Axes : -9 -32 29 degrees QTcB Int : 460 ms Normal sinus rhythm Left axis deviation Abnormal ECG No previous ECGs available Referred By: Eboni Farrell Electronically Signed By: Todd Ruth
[2024-10-07 17:59] LABS: RBC Urine 0-2 /HPF (0-2)
[2024-10-07] MEDS: Acetaminophen 1,000 MG/100 ML PIGGYBACK 400 MG IV (18:03)
[2024-10-07] MEDS: iohexoL 350 MG/ML 100 ML INFUS..BTL IV (18:23)
[2024-10-07] MEDS: Diatrizoate Meglumine, Sodium 30 ML SOLUTION PO (18:26)
[2024-10-07 18:37] LABS: Troponin-I High Sensitivity 6.3 ng/L (<3.5-35.0)
[2024-10-07 19:04] LABS: Influenza A PCR NEGATIVE (Negative); Influenza B PCR NEGATIVE (Negative); Resp Syncy Virus RNA Qual PCR NEGATIVE (Negative); SARS COV2 PCR INHOUSE NEGATIVE (Negative)
[2024-10-07 19:45] LABS: Troponin-I High Sensitivity 4.7 ng/L (<3.5-35.0)
== END 2024-10-07 20:42 | disposition home or self-care (01) ==
PROVIDERS: Physician Assistant Medical; Emergency Provider Emergency Medicine
DX: K59.00 Constipation, unspecified (principal); L03.115 Cellulitis of right lower limb; Z03.818 Encounter for observation for suspected exposure to other biological agents ruled out
CPT/HCPCS: 0241U; 36415; 71045; 74177; 80048; 80076; 81001; 83605; 83690; 83880; 84484; 84550; 85025; 85652; 86140; 87040; 93005; 96361; 96365; 96375; 99284; 99285; J0131; J0696; J2270; Q9967

== ENCOUNTER → 2024-10-07 17:51 | Outpatient (BNV) | payer MEDICARE, SELFPAY | PROVIDERS: Emergency Provider Emergency Medicine; Visit Provider Radiology Diagnostic Radiology | DX: R10.9 Unspecified abdominal pain (principal); R14.0 Abdominal distension (gaseous); R06.02 Shortness of breath | CPT/HCPCS: 71045; 74177 ==

== ENCOUNTER → 2024-10-07 17:51 | Outpatient (BNV) | payer MEDICARE, SELFPAY | PROVIDERS: Emergency Provider Emergency Medicine; Visit Provider Internal Medicine Cardiovascular Disease | DX: R94.31 Abnormal electrocardiogram [ECG] [EKG] (principal); R06.00 Dyspnea, unspecified | CPT/HCPCS: 93010 ==

== ENCOUNTER 2024-10-23 09:14 | Outpatient (REF) | payer MEDICARE, SELFPAY ==
--- OUTSIDE RECORDS SUMMARY | 2024-10-23 09:47 | XMS_ITS | Clinical Summary ---
Author Organization [facility]ly [facility] Address [address] [place] [address] Care Team Providers Care Meat Manager Name Role Phone Unknown Primary Care Provider [phone] Allergies No known active allergies Medications PARoxetine [...] 2 Active elvitegravir-cob icistat-emtricit abine-tenofovir alafenamide (Genvoya) [phone] mg tablet Take 1 tablet by mouth [...] TO 2-3 WEEKS 2 Active nystatin (MYCOSTATIN) 949363 UNIT/GM cream APPLY CREAM TOPICALLY TWICE DAILY [...] 135/89 Pulse: 88 Resp: 14 Temp: 97.7 F (36.5 C) SpO2: 96% Discussed importance of good blood [...] 5.4 07/06/2017 The 10-year ASCVD risk score ([place] DC Jr., et al., 2013) is: 16% Values used to calculate the score: Age: 64 years Sex: Male Is Non- : No Diabetic: No Tobacco smoker: No Systolic Blood Pressure: 120 mmHg Is BP treated: Yes HDL Cholesterol: 51 mg/dL Total Cholesterol: 243 mg/dL Pt given handouts and recommended to visit [email or web address] HIV (human immunodeficiency virus infection) 12/2016 Overweight (BMI 25.0-29.9) 07/01/2016 Overview (01/18/2022): Last Assessment & Plan: Hugo Alejandro's Body mass index is 28.7 kg/m . The patient and I had thoughtful discussion [...] 124 07/31/2022 1:58 PM EDT Temperature 36.7 C (98 F) 07/31/2022 1:58 PM EDT Respiratory Rate 16 [...] 09/01/2007, Additional history exists Insurance Care Teams Meat Manager Relationship Specialty Start Date End Date Unknown Unknow Provider Address PCP - General 01/18/22
--- OUTSIDE RECORDS SUMMARY | 2024-10-23 09:47 | XMS_ITS ---
Author Name [facility] Organization Unknown History of Medication Use Medication Directions Dispensed Refills Start Date End Date Stat azithromycin (ZITHROMAX) 250 MG tablet Take 2 tabs PO on day one and one tabs on days 2-5 #6 07/31/2022 active proMETHAZINE-dextrom ethorphan (proMETHAZINE-DM) 6.25-15 MG/5ML syrup Take 5 mL by mouth 4 times daily (every 6 hours) as needed for cough. 02/26/2022 active benzonatate (TESSALON) 200 MG capsule Take 1 capsule (200 mg total) by mouth 3 (three) times a day as needed for cough. 02/12/2022 02/20/2022 active mupirocin (BACTROBAN) 2 % ointment APPLY OINTMENT TOPICALLY TO OPEN WOUND TWICE DAILY NEEDED UP TO 2-3 WEEKS 01/05/2022 active nystatin (MYCOSTATIN) 568097 UNIT/GM cream APPLY CREAM TOPICALLY TWICE DAILY FOR 2 WEEKS NEEDED (MIX 50/50 WITH ALCLOMETASONE) 12/31/2021 active valACYclovir (VALTREX) 1000 MG tablet TAKE 1 TABLET BY MOUTH TWICE DAILY FOR 5 DAYS 12/27/2021 active albuterol (PROVENTIL HFA; VENTOLIN HFA) 108 (90 Base) MCG/ACT inhaler Inhale 2 puffs every 4 (four) hours as needed for wheezing or shortness of breath. 07/20/2021 02/26/2022 active elvitegravir-cobicis kpe-eghyooladvdoa-xw nofovir alafenamide (Genvoya) [phone] mg tablet Take 1 tablet by mouth daily. 06/15/2021 06/16/2022 active lisinopril (PRINIVIL,ZeSTRIL) 10 MG tablet Take 10 mg by mouth daily. 05/22/2021 active lisinopril (PRINIVIL,ZeSTRIL) 5 MG tablet Take 5 mg by mouth daily. 01/18/2022 aborted Problems Problem Status Onset Date Problem Type Date of Resolution Source Essential hypertension active 2019-04-02 ProblemAct [facility] Trigger finger, right ring finger active 2021-06-08 ProblemAct [facility] Statin declined active 2017-07-07 ProblemAct [facility] Diverticulitis of colon active 2019-11-27 ProblemAct [facility] Pre-diabetes active 2016-07-05 ProblemAct [facility] HIV (human immunodeficiency virus infection) active 2016-07-01 ProblemAct [facility] Varicose veins of both lower extremities active 2016-07-01 ProblemAct [facility] Diverticulitis active EncounterDiagnosisAct [facility] Anxiety active 2018-09-11 ProblemAct [facility] Rosacea active 2020-05-28 ProblemAct [facility] Snoring active 2017-07-06 ProblemAct [facility] Hyponatremia active 2021-06-07 ProblemAct [facility] Elevated LDL cholesterol level active 2016-07-05 ProblemAct [facility] Metabolic syndrome active 2019-03-12 ProblemAct [facility] Hyperuricemia active 2016-07-05 ProblemAct [facility] T Overweight (BMI 25.0-29.9) active 2016-07-01 ProblemAct [facility] Encounters Encounter Type Encounter Reason Primary Diagnosis Location Date Ambulatory Diverticulitis o f intestine, part unspecified, without perforation or abscess without bleeding [facility] Acute bronchitis , unspecified [facility] 02/26/2022 Ambulatory Contact with and (suspected) exposure to covid-19 [facility] 02/12/2022 Ambulatory Trigger finger, right ring finger [facility] 01/18/2022 Care Team Organization Name Specialty Phone Email Start Date End [facility] [place] 03/25/2022 12/12/2023 [place] 02/26/2022 02/26/2022 [facility] 02/26/2022
--- OUTSIDE RECORDS SUMMARY | 2024-10-23 09:47 | XMS_ITS | Clinical Summary ---
Author Organization [facility] Address [address] [place] [address] Care Team Providers Care Artillery Officer Name Role Phone Unavailable Primary Care Provider [...] ( season) 2023 07/14/2020, 06/24/2020 Influenza Vaccine (Season Ended) 2024 03/12/2019, 02/10/2015, 02/13/2014, Additional history exists RSV Adult [...] Personal/Family Self 1955 [address] [place] [id number]
--- OUTSIDE RECORDS SUMMARY | 2024-10-23 09:47 | XMS_ITS | Clinical Summary ---
Author Organization [facility] [employer] Address [address] [place] [address] Care Team Providers Care Crew Person Name Role Phone Adithya Johnson Primary Care Provide r Allergies No known active allergies Medications acetaminophen (TYLENOL) 500 mg tablet Take 2 tablets (1,000 mg total) by mouth every 8 (eight) hours if needed. 4 Active elvitegravir-cob icistat-emtricit abine-tenofovir alafenamide (Genvoya) [phone] mg per tablet Take 1 tablet by [...] New onset type 2 diabetes me llitus ([facility] V24, [facility] V28) 03/27/2024 Other hyperlipidemia 03/27/2024 Asymptomatic HIV infection, with no history of HIV-related illness ([facility] V24, [facility] V28) 03/27/2024 History of hepatitis C 03/27/2024 Overview (03/27/2024): Completed treatment course. Viral loads have been negative Primary osteoarthritis of left knee 02/22/2023 Overview (03/27/2024): S/p left knee total replacement june 2023 Stage 3a chronic kidney disease ([facility] V24, S/[facility] V28) 11/12/2022 Transaminitis 11/12/2022 Chronic gout without [...] handouts and recommended to visit [email or web address]/diseases-conditions/prediabetes/symptoms-causes/[email or web address] 66996 78 Last Assessment & Plan: Patient advised [...] handouts and recommended to visit [email or web address]://www.[email or web address]/diseases-conditions/prediabetes/symptoms-causes/[facility]-2 07145 78 Overweight (BMI 25.0-29.9) 07/01/2016 1 05/28/2023 [...] thing every day were covered as well. Immunizations Name Administration Dates Next Due Influenza [...] forehead 2020 HIV (human immunodeficiency virus infection) ([facility] V24, [facility] V28) Colon polyp Social History Tobacco Use [...] care for your loved ones. For example, early childhood lead teacher or elderly care for an older [...] 79 06/25/2024 3:49 PM EST Temperature 36.5 C (97.7 F) 06/25/2024 2:50 PM EST Respiratory Rate 20 06/25/2024 3:49 PM EST [...] PM EDT Office Visit Orthopedic Surgery - [place] [address] 175 [facility] [address] [place] [phone] Adithya Rubio MD 175 [facility] [address] [place] [address] Health Maintenance Due Date Last Done Comments [...] this topic Medical Devices Implanted Type Area Music Assistant Device Identifier Shelf Expiration Date Model / [...] Maintenance Results * COLONOSCOPY Anesthesia - MAC; [facility] ENDOSCOPY (06/25/2024 3:28 PM EST) Anatomical Region Laterality Modality Other 06/25/2024 2:52 PM EST Impressions 06/25/2024 3:26 PM EST - Diverticulosis in the left colon. - Non-bleeding internal hemorrhoids. - The examination was otherwise normal on direct and retroflexion views. - No specimens collected. Recommendation: - Discharge patient to home. - High fiber diet. - Continue present medications. - Return to GI clinic PRN. Narrative 06/25/2024 3:26 PM EST [facility] GI Patient Name: Hugo Alejandro Procedure [...] reviewing the risks and benefits, the patient was deemed in satisfactory condition to undergo the procedure. After I obtained informed consent, the scope was passed under direct vision. Throughout the procedure, the patient's blood pressure, pulse, and oxygen [...] medium-sized. The exam was otherwise without abnormality on direct and retroflexion views. Procedure Code(s): --- Professional --- G0121, Colorectal cancer screening; colonoscopy on individual not meeting criteria for high risk Diagnosis Code(s): --- Professional --- Z12.11, Encounter for screening for malignant neoplasm of colon CPT copyright 2020 [employer]. All rights reserved. The codes documented in this report are preliminary and upon excellence consultant review may be revised to meet current compliance requirements. Hector Pradhan MD 06/25/2024 3:26:15 PM This report has been signed electronically.Hector Pradhan MD Number of Addenda: 0 Note Initiated On: 06/25/2024 2:52 PM Scope In: Scope Out: Endoscopy Department at [facility] - [address] [place] [phone] Procedure Note Hector Pradhan MD - 06/25/2024 [facility] GI Patient Name: Hugo Alejandro Procedure [...] for malignantneoplasm of colon CPT copyright 2020 [employer]. All rights reserved. The codes documented in this report are preliminary and upon excellence consultant reviewmay be revised to meet current compliance requirements. Hector Pradhan MD 06/25/2024 3:26:15 PM This report has been signed electronically.Hector Pradhan MD Number of Addenda: 0 Note Initiated On: 06/25/2024 2:52 PM Scope In: Scope Out: Endoscopy Department at [facility] - [address] [place] [phone] IMPRESSION: - Diverticulosis in the left colon. - Non-bleeding internal hemorrhoids. - The examination was otherwise normal on directand retroflexion views. - No specimens collected. Recommendation: - Discharge patient to home. - High fiber diet. - Continue present medications. - Return to GI clinic PRN. Hector Pradhan MD GI~PROCEDURE ORDERABLES Final Result * (ABNORMAL) Lipid panel with reflex to direct LDL (03/28/2024 10:13 AM EST) Cholesterol 245(H) 0 - 200 mg/dL LAB CHEMISTRY METHOD 03/28/2024 12:[address] [facility] Triglycerides 252(H) 0 - 150 mg/dL LAB CHEMISTRY METHOD 03/28/2024 12:33 PM EST [facility] HDL 36(L) >=40 mg/dL LAB CHEMISTRY METHOD 03/28/2024 12:33 PM EST [facility] LDL Calculated 159(H) 0 - 100 mg/dL LAB CHEMISTRY METHOD 03/28/2024 12:33 PM EST [facility] VLDL Cholesterol Chip 50.4 mg/dL LAB CHEMISTRY METHOD 03/28/2024 12:33 PM EST [facility] Non HDL Chol. (LDL+VLDL) 209(H) <145 mg/dL LAB CHEMISTRY METHOD 03/28/2024 12:[address] [facility] Chol/HDL Ratio 6.8(H) 0.0 - 4.4 LAB CHEMISTRY METHOD 03/28/2024 12:[address] [facility] Blood Venous blood specimen / Unknown Venipuncture / Unknown 03/28/2024 10:13 AM EST 03/28/2024 10:13 AM EST us Camilo Farrell MD LAB BLOOD ORDERABLES F inal Result Performing Organization Address City/[facility]/ZIP Co de Phone Number [facility] [address] [place] [address], [place] [phone] * (ABNORMAL) Microalbumin creatinine urine ratio (03/28/2024 10:13 AM EST) Creatinine, Urine 200.0 mg/dL LAB CHEMISTRY METHOD 03/28/2024 1:[address] [facility] Microalb, Ur 67.1(H) 0.0 - 29.0 mg/L LAB CHEMISTRY METHOD 03/28/2024 1:[address] [facility] Microalb/Crea t Ratio 34(H) <30 mg/g creat LAB CHEMISTRY METHOD 03/28/2024 1:[address] [facility] Urine Urine specimen obtained by clean catch procedure / Unknown Non-blood Collection / Unknown 03/28/2024 10:13 AM EST 03/28/2024 10:13 AM EST us Camilo Farrell MD LAB URINE ORDERABLES F inal Result Performing Organization Address City/[facility]/ZIP Co de Phone Number [facility] [address] [place] [address], [place] [phone] * Hemoglobin A1c (03/28/2024 10:13 AM EST) Hemoglobin A1C 5.9 <6.5 % LAB CHEMISTRY METHOD 03/28/2024 2:[address] [facility] Mean Bld Glu Estim. 123 mg/dL LAB CHEMISTRY METHOD 03/28/2024 2:[address] [facility] Blood Venous blood specimen / Unknown Venipuncture / Unknown 03/28/2024 10:13 AM EST 03/28/2024 10:13 AM EST us Camilo Farrell MD LAB BLOOD ORDERABLES F inal Result [facility] [address] [place] [address], * (ABNORMAL) Comprehensive metabolic panel (03/28/2024 10:13 AM EST) Sodium 136 133 - 145 mmol/L LAB CHEMISTRY METHOD 03/28/2024 12:[address] [facility] Potassium 4.1 3.5 - 5.5 [...] [facility] Comment:Calculation based on the Chronic Kidney Disease Epidemiology Collaboration (CKD-EPI) equation refit without adjustment for race. BUN/Creatinine Ratio 15.0 LAB [...] g/dL LAB CHEMISTRY METHOD 03/28/2024 12:[address] [facility] Albumin 4.0 3.2 - 5.0 g/dL LAB CHEMISTRY METHOD 03/28/2024 12:[address] [facility] Total Bilirubin 0.5 0.0 - 1.4 mg/dL LAB CHEMISTRY METHOD 03/28/2024 12:[address] [facility] Blood Venous blood specimen / Unknown Venipuncture / Unknown 03/28/2024 10:13 AM EST 03/28/2024 10:13 AM EST us Camilo Farrell MD LAB BLOOD ORDERABLES F inal Result [facility] [address] [place] [address], [place] [phone] * Hepatitis C Screening (03/24/2023) HM Hepatitis C Screening abstracted us Historical Provider HEALTH MAINTENANCE Final Result from Last 3 Months or Most Recently Relevant to Health Maintenance Insurance Advance Directives Documents on File Type Date Recorded Patient Malted Milk Mixer Expl anation Health Care Decision (hx) 07/20/2023 HE ALTH CARE PROXY Health Care Decision (hx) 07/20/2023 HE ALTH CARE PROXY Health Care Decision (hx) 07/20/2023 HE ALTH CARE PROXY Care Teams Crew Person Relationship Specialty Start Date End Date Adithya Johnson [address] [place] [address] MANJINDER Pedraza [id number] PCP - General Internal Medicine 06/22/24
--- OUTSIDE RECORDS SUMMARY | 2024-10-23 09:48 | XMS_ITS | Patient Health Record ---
Author Organization [facility] Address [address] [address] Care Team Providers Care Capacitor Repairer Name Role Phone Jonathan Arredondo MD Primary Care Provider Unavail able Florentin Davis Unavailable [phone] Reason For Referral No Information Plan Of Treatment No Information Insurance Providers Payer Name Payer Address Payer Phone Subscriber Number Group Number Insured Name Patient Relationship to Insured Coverage Start Date Coverage End Date [employer] Medicare AE15 [address] [place] [address] [id number] Hugo Alejandro Self - patient is the insured 6
[2024-10-23 12:02] LABS: Hemoglobin A1C 199.8839 umol/L; Total Hemoglobin (HGBA1C) 3862.3099 umol/L
[2024-10-23 12:25] LABS: Alanine Aminotransferase 48 U/L (0-40); Albumin Level 4.4 g/dL (3.5-5.0); Alkaline Phosphatase 101 U/L (39-117); Anion Gap 14 (12-20); Aspartate Amino Transferase 83 U/L (5-37); Blood Urea Nitrogen 12 mg/dL (9-16); Calcium 9.4 mg/dL (8.4-10.2); Carbon Dioxide 22 mmol/L (22-29); Chloride 107 mmol/L (96-108); Cholesterol 182 mg/dL (<200); Estimated Glomerular Filt Rate > 60; HDL Cholesterol 33 mg/dL (>40); Potassium 4.1 mmol/L (3.3-5.1); Sodium 139 mmol/L (135-145); Total Protein 7.3 g/dL (6.5-8.0); Triglycerides 139 mg/dL (<150)
== END 2024-10-23 09:15 | disposition home or self-care (01) ==
LOC: HO.HHCL 09:14
PROVIDERS: PCP Internal Medicine; Visit Provider Internal Medicine
DX: E11.9 Type 2 diabetes mellitus without complications (principal)
CPT/HCPCS: 36415; 80053; 80061; 83036

== ENCOUNTER 2024-12-21 11:13 | Outpatient (REF) | payer MEDICARE, SELFPAY ==
--- OUTSIDE RECORDS SUMMARY | 2024-12-21 12:24 | XMS_ITS | Encounter Summary ---
Author Organization [facility] Address [address] [place] [address] Care Team Providers Care Floral Associate Name Role Phone Unknown Primary Care Provider [phone] Encounter Details Date Type Department Care Team (Late st Contact Info) Description 05/24/[address] [facility] [place] [address] [place] [address] Keven Alaniz PA [address] [place] [address] Social History Tobacco Use Types Packs/Day Years [...] on filedocumented in this encounter Care Teams Floral Associate Relationship Specialty Start Date End Date Unknown Unknow Provider Address PCP - General 01/18/22 documented as of this encounter
--- OUTSIDE RECORDS SUMMARY | 2024-12-21 12:24 | XMS_ITS | Clinical Summary ---
Author Organization [facility] Address [address] [place] [address] Care Team Providers Care Board Setter Name Role Phone Unknown Primary Care Provider [phone] Allergies No known active allergies Medications PARoxetine [...] 2 Active elvitegravir-cob icistat-emtricit abine-tenofovir alafenamide (Genvoya) [phone] mg tablet Take 1 tablet by mouth [...] TO 2-3 WEEKS 2 Active nystatin (MYCOSTATIN) 139877 UNIT/GM cream APPLY CREAM TOPICALLY TWICE DAILY [...] 07/06/2017 The 10-year ASCVD risk score (Bryan DC Jr., et al., 2013) is: 16% Values used to calculate the score: Age: 64 years Sex: Male Is Non- : No Diabetic: No Tobacco smoker: No Systolic Blood Pressure: 120 mmHg Is BP treated: Yes HDL Cholesterol: 51 mg/dL Total Cholesterol: 243 mg/dL Pt given handouts and recommended to visit [email or web address]/diseases-conditions/prediabetes/symptoms-causes/syc-2 40339 78 HIV (human immunodeficiency virus infection) 12/2016 [...] Health Maintenance Due Date Last Done Comments Advance Care Planning 1955 Hepatitis C Virus Screening 1955 Zoster (Shingles) [...] 09/01/2007, Additional history exists Insurance Care Teams Board Setter Relationship Specialty Start Date End Date Unknown Unknow Provider Address PCP - General 01/18/22
--- OUTSIDE RECORDS SUMMARY | 2024-12-21 12:24 | XMS_ITS | Patient Health Record ---
Author Organization [facility] Address [address] [address] Care Team Providers Care Nursing Home Administrator Name Role Phone Jonathan Arredondo MD Primary Care Provider Unavail able Florentin Davis Unavailable [phone] Reason For Referral No Information Plan Of Treatment No Information Insurance Providers Payer Name Payer Address Payer Phone Subscriber Number Group Number Insured Name Patient Relationship to Insured Coverage Start Date Coverage End Date A[employer] Medicare AE15 [address] [place] [address] [id number] Hugo Alejandro Self - patient is the insured 6
--- OUTSIDE RECORDS SUMMARY | 2024-12-21 12:24 | XMS_ITS | Clinical Summary ---
Author Organization [employer] Address [address] [place] [address] Care Team Providers Care Shaker Out Name Role Phone Adithya Johnson Primary Care Provide r Allergies No known active allergies Medications acetaminophen (TYLENOL) 500 mg tablet Take 2 tablets (1,000 mg total) by mouth every 8 (eight) hours if needed. 4 Active elvitegravir-cob icistat-emtricit abine-tenofovir alafenamide (Genvoya) [phone] mg per tablet Take 1 tablet by [...] New onset type 2 diabetes me llitus ([facility] V24, [facility] V28) 03/27/2024 Other hyperlipidemia 03/27/2024 Asymptomatic HIV infection, with no history of HIV-related illness ([facility] V24, [facility] V28) 03/27/2024 History of hepatitis C 03/27/2024 Overview (03/27/2024): Completed treatment course. Viral loads have been negative Primary osteoarthritis of left knee 02/22/2023 Overview (03/27/2024): S/p left knee total replacement june 2023 Stage 3a chronic kidney disease ([facility] V24, S/[facility] V28) 11/12/2022 Transaminitis 11/12/2022 Chronic gout without [...] recommended to visit [email or web address]://[email or web address]/diseases-conditions/prediabetes/symptoms-causes/syc-2 76797 78 Last Assessment & Plan: Patient advised [...] and recommended to visit https://www.[email or web address]/diseases-conditions/prediabetes/symptoms-causes/[facility]-2 68196 78 Overweight (BMI 25.0-29.9) 07/01/2016 1 05/28/2023 [...] forehead 2020 HIV (human immunodeficiency virus infection) ([facility] V24, [facility] V28) Colon polyp Social History Tobacco Use [...] your loved ones. For example, child care leader or elderly care for an older adult? [...] PM EDT Office Visit Orthopedic Surgery - [place] 250 175 [facility] [address] [place] [phone] Adithya Rubio MD [address] [place] [phone] Health Maintenance Due Date Last Done Comments [...] 07/14/2020, 06/24/2020 Medicare Annual Wellness Visit 05/27/2022 Depression Screening 04/25/2024 Diabetes: Blood Sugar Control Test (HGBA1C) 09/26/2024 03/28/2024, 11/03/2023, 11/03/2023 Influenza Vaccine (#1) 2024 , 03/24/2023, 03/12/2019, Additional history exists Social Influencers of Health Screening 03/27/2025 03/27/2024 [...] Completed 08/15/2023, 03/12/2019, 09/11/2018, Additional history exists HIB Vaccines Aged Out [...] this topic Medical Devices Implanted Type Area Proofsheet Corrector Device Identifier Shelf Expiration Date Model / [...] 2 diabetes mellitus (CMS/HCC V24, CMS/HCC V28) HEPATITIS C SCREENING Routine 03/24/2023 from Last 3 Months or Most Recently Relevant to Health Maintenance Results * COLONOSCOPY Anesthesia - MAC; SP ENDOSCOPY (06/25/2024 3:28 PM EST) Anatomical Region [...] clinic PRN. Narrative 06/25/2024 3:26 PM EST [facility] GI Patient Name: Hugo Alejandro Procedure Date: [...] malignant neoplasm of colon CPT copyright 2020 [employer]. All rights reserved. The codes documented in this report are preliminary and upon retail consultant review may be revised to meet current compliance requirements. Hector Pradhan MD 06/25/2024 3:26:15 PM This report has been signed electronically.Hector Pradhan MD Number of Addenda: 0 Note Initiated On: 06/25/2024 2:52 PM Scope In: Scope Out: Endoscopy Department at [facility] - [address] [place] [phone] Procedure Note Hector Pradhan MD - 06/25/2024 [facility] GI Patient Name: Hugo Alejandro Procedure Date: [...] for malignantneoplasm of colon CPT copyright 2020 [employer]. All rights reserved. The codes documented in this report are preliminary and upon retail consultant reviewmay be revised to meet current compliance requirements. Hector Pradhan MD 06/25/2024 3:26:15 PM This report has been signed electronically.Hector Pradhan MD Number of Addenda: 0 Note Initiated On: 06/25/2024 2:52 PM Scope In: Scope Out: Endoscopy Department at [facility] - [address] [place] [phone] IMPRESSION: - Diverticulosis in the left colon. [...] mg/dL LAB CHEMISTRY METHOD 03/28/2024 12:33 PM [facility] Triglycerides 252(H) 0 - 150 mg/dL LAB CHEMISTRY METHOD 03/28/2024 12:33 PM [facility] HDL 36(L) >=40 mg/dL LAB CHEMISTRY METHOD 03/28/2024 12:33 PM EST [facility] LDL Calculated 159(H) 0 - 100 mg/dL LAB CHEMISTRY METHOD 03/28/2024 12:33 PM [facility] VLDL Cholesterol Chip 50.4 mg/dL LAB CHEMISTRY METHOD 03/28/2024 12:33 PM [facility] Non HDL Chol. (LDL+VLDL) 209(H) <145 mg/dL LAB CHEMISTRY METHOD 03/28/2024 12:33 PM [facility] Chol/HDL Ratio 6.8(H) 0.0 - 4.4 LAB CHEMISTRY METHOD 03/28/2024 12:33 PM EST [facility] Blood Venous blood specimen / Unknown Venipuncture / Unknown 03/28/2024 10:13 AM EST 03/28/2024 10:13 AM EST us Camilo Farrell MD LAB BLOOD ORDERABLES F inal Result [facility] [address] [place] [address], [place] [phone] * (ABNORMAL) Microalbumin creatinine urine ratio (03/28/2024 10:13 AM EST) Creatinine, Urine 200.0 mg/dL LAB CHEMISTRY METHOD 03/28/2024 1:06 PM [facility] Microalb, Ur 67.1(H) 0.0 - 29.0 mg/L LAB CHEMISTRY METHOD 03/28/2024 1:06 PM [facility] Microalb/Crea t Ratio 34(H) <30 mg/g creat LAB CHEMISTRY METHOD 03/28/2024 1:06 PM [facility] Urine Urine specimen obtained by clean catch procedure / Unknown Non-blood Collection / Unknown 03/28/2024 10:13 AM EST 03/28/2024 10:13 AM EST us Camilo Farrell MD LAB URINE ORDERABLES F inal Result [facility] [address] [place] [address], [place] [phone] * Hemoglobin A1c (03/28/2024 10:13 AM EST) Hemoglobin A1C 5.9 <6.5 % LAB CHEMISTRY METHOD 03/28/2024 2:08 PM EST [facility] Mean Bld Glu Estim. 123 mg/dL LAB CHEMISTRY METHOD 03/28/2024 2:08 PM [facility] Blood Venous blood specimen / Unknown Venipuncture / Unknown 03/28/2024 10:13 AM EST 03/28/2024 10:13 AM EST us Camilo Farrell MD LAB BLOOD ORDERABLES F inal Result [facility] [address] [place] [address], [place] [phone] * (ABNORMAL) Comprehensive metabolic panel (03/28/2024 10:13 AM EST) Sodium 136 133 - 145 mmol/L LAB CHEMISTRY METHOD 03/28/2024 12:33 PM [facility] Potassium 4.1 3.5 - 5.5 mmol/L LAB CHEMISTRY METHOD 03/28/2024 12:33 PM [facility] Chloride 106 96 - 110 mmol/L LAB CHEMISTRY METHOD 03/28/2024 12:33 PM [facility] CO2 20(L) 21 - 32 mmol/L LAB CHEMISTRY METHOD 03/28/2024 12:33 PM [facility] Anion Gap 10 3 - 11 LAB CHEMISTRY METHOD 03/28/2024 12:33 PM [facility] Glucose 125(H) 70 - 100 mg/dL LAB CHEMISTRY METHOD 03/28/2024 12:33 PM [facility] BUN 19 5 - 25 mg/dL LAB CHEMISTRY METHOD 03/28/2024 12:33 PM [facility] Creatinine 1.27 0.70 - 1.30 mg/dL LAB CHEMISTRY METHOD 03/28/2024 12:33 PM [facility] eGFR 61 >=60 mL/min/1. 73m2 LAB CHEMISTRY METHOD 03/28/2024 12:33 PM [facility] Comment:Calculation based on the Chronic Kidney Disease Epidemiology Collaboration (CKD-EPI) equation refit without adjustment for race. BUN/Creatinine Ratio 15.0 LAB CHEMISTRY METHOD 03/28/2024 12:33 PM [facility] Calcium 9.8 8.5 - 10.5 mg/dL LAB CHEMISTRY METHOD 03/28/2024 12:33 PM [facility] AST (SGOT) 77(H) 10 - 42 unit/L LAB CHEMISTRY METHOD 03/28/2024 12:33 PM [facility] ALT (SGPT) 45 10 - 60 unit/L LAB CHEMISTRY METHOD 03/28/2024 12:33 PM [facility] Alkaline Phosphatase 99 42 - 121 unit/L LAB CHEMISTRY METHOD 03/28/2024 12:33 PM [facility] Total Protein 7.7 6.0 - 8.0 g/dL LAB CHEMISTRY METHOD 03/28/2024 12:33 PM [facility] Albumin 4.0 3.2 - 5.0 g/dL LAB CHEMISTRY METHOD 03/28/2024 12:33 PM [facility] Total Bilirubin 0.5 0.0 - 1.4 mg/dL LAB CHEMISTRY METHOD 03/28/2024 12:33 PM [facility] Blood Venous blood specimen / Unknown Venipuncture / Unknown 03/28/2024 10:13 AM EST 03/28/2024 10:13 AM EST Camilo Farrell MD LAB BLOOD ORDERABLES F inal Result [facility] [address] [place] [address], * Hepatitis C Screening (03/24/2023) Pathologist [facility] Hepatitis C Screening abstracted Historical Provider HEALTH MAINTENANCE Final Result from Last 3 Months or Most Recently Relevant to Health Maintenance Insurance Advance Directives Documents on File Type Date Recorded Patient Firer Bisque Kiln Expl anation Health Care Decision (hx) 07/20/2023 HE ALTH CARE PROXY Health Care Decision (hx) 07/20/2023 HE ALTH CARE PROXY Health Care Decision (hx) 07/20/2023 HE ALTH CARE PROXY Care Teams Shaker Out Relationship Specialty Start Date End Date Adithya Johnson [address] [place] [address] MANJINDER Pedraza [id number] PCP - General Internal Medicine 06/22/24
--- OUTSIDE RECORDS SUMMARY | 2024-12-21 12:24 | XMS_ITS | Clinical Summary ---
Author Organization [facility] Address [address] [place] [address] Care Team Providers Care Business Support Professional Name Role Phone Unavailable Primary Care Provider [...] season) 2023 07/14/2020, 06/24/2020 Influenza Vaccine (#1) 2024 9, 02/10/2015, 02/13/2014, Additional history exists RSV [...] Personal/Family Self 1955 [address] [place] [address]
[2024-12-26 17:43] LABS: Antibody to SS-A Antigen <1.0 NEG AI (<1.0 NEG); Antibody to SS-B Antigen <1.0 NEG AI (<1.0 NEG)
== END 2024-12-21 11:14 | disposition home or self-care (01) ==
LOC: HO.CHCLDS 11:13
PROVIDERS: PCP Internal Medicine; Visit Provider Internal Medicine
DX: R74.8 Abnormal levels of other serum enzymes (principal)
CPT/HCPCS: 36415; 86235

== ENCOUNTER 2025-02-26 10:04 | Outpatient (REF) | payer MEDICARE, SELFPAY ==
--- OUTSIDE RECORDS SUMMARY | 2025-02-26 11:43 | XMS_ITS | Clinical Summary ---
Author Organization [employer] Address [address] [place] [address] Care Team Providers Care Moving Picture Producer Name Role Phone Adithya Johnson Primary Care Provide r Allergies No known active allergies Medications acetaminophen (TYLENOL) 500 mg tablet Take 2 tablets (1,000 mg total) by mouth every 8 (eight) hours if needed. 4 Active elvitegravir-cob icistat-emtricit abine-tenofovir alafenamide (Genvoya) [phone] mg per tablet Take 1 tablet by [...] New onset type 2 diabetes me llitus ([facility] V24, [facility] V28) 03/27/2024 Other hyperlipidemia 03/27/2024 Asymptomatic HIV infection, with no history of HIV-related illness ([facility] V24, [facility] V28) 03/27/2024 History of hepatitis C 03/27/2024 Overview (03/27/2024): Completed treatment course. Viral loads have been negative Primary osteoarthritis of left knee 02/22/2023 Overview (03/27/2024): S/p left knee total replacement june 2023 Stage 3a chronic kidney disease ([facility] V24, S/[facility] V28) 11/12/2022 Transaminitis 11/12/2022 Chronic [...] Pt given handouts and recommended to visit [email or web address]/diseases-[email or web address]/[email or web address]-causes/[email or web address] 45235 78 Last Assessment & Plan: Patient advised [...] Pt given handouts and recommended to visit [email or web address]://www.[email or web address]/diseases-conditions/prediabetes/symptoms-causes/[facility]-2 24091 78 Overweight (BMI 25.0-29.9) 07/01/2016 1 05/28/2023 [...] every day were covered as well. Immunizations Immunization Administration Dates Next Due Influenza trivalent, 0.5mL (Fluad) 65yo and olde r 03/24/2023 Bionym SARS-CoV-2 COVID-19, mRNA, LNP-S, preservative free 07/14/2020,06/24/2020 [...] forehead 2020 HIV (human immunodeficiency virus infection) ([facility] V24, [facility] V28) Colon polyp Social History [...] your loved ones. For example, early childhood or elderly care for an older adult? [...] Date Recorded What is your living situation? Unrecognized valu e 03/27/2024 Interpersonal Safety Answer Date Record ed Physical Abuse Unrecognized value 06/25/2024 Verbal Abuse Unrecognized value 06/25/2024 Sex and Gender Information Value Date [...] Orthopedic Surgery [facility] [address] [place] [phone] Adithya Rubio MD [facility] [place] [address] Health Maintenance Due Date Last Done Comments Diabetes: Annual Foot Exam 1963 Diabetes: Annual Retina Eye Exam 1963 Hepatitis A Vaccines (1 of 2 - Risk 2-dose series) 1972 Zoster Vaccines (1 of 2) 1972 RSV Immunization Adult Patients (1 - Risk 50-74 years 1-dose series) 2003 Hepatitis B Vaccines (1 of 3 - Risk 3-dose series) 2013 COVID-19 Vaccine (3 - Pfizer [...] this topic Medical Devices Implanted Type Area Web Producer Device Identifier Shelf Expiration Date Model / [...] Maintenance Results * COLONOSCOPY Anesthesia - MAC; [facility] ENDOSCOPY (06/25/2024 3:28 PM [...] clinic PRN. Narrative 06/25/2024 3:26 PM EST [facility] GI Patient Name: Hugo Alejandro [...] malignant neoplasm of colon CPT copyright 2020 [employer]. All rights reserved. The codes documented in this report are preliminary and upon computer language coder review may be revised to meet current compliance requirements. Hector Pradhan MD 06/25/2024 3:26:15 PM This report has been signed electronically.Hector Pradhan MD Number of Addenda: 0 Note Initiated On: 06/25/2024 2:52 PM Scope In: Scope Out: Endoscopy Department at [facility] - [address] [place] [phone] Procedure Note Hector Pradhan MD - 06/25/2024 [facility] GI Patient Name: Hugo Alejandro [...] for malignantneoplasm of colon CPT copyright 2020 [employer]. All rights reserved. The codes documented in this report are preliminary and upon computer language coder reviewmay be revised to meet current compliance requirements. Hector Pradhan MD 06/25/2024 3:26:15 PM This report has been signed electronically.Hector Pradhan MD Number of Addenda: 0 Note Initiated On: 06/25/2024 2:52 PM Scope In: Scope Out: Endoscopy Department at [facility] - [address] [place] [phone] IMPRESSION: - Diverticulosis in the left colon. [...] 03/28/2024 12:[address] [facility] Triglycerides 252(H) 0 - 150 [...] MD LAB BLOOD ORDERABLES F inal Result [facility] [address] [place] [address], [place] [phone] * (ABNORMAL) Microalbumin creatinine urine ratio (03/28/2024 [...] MD LAB URINE ORDERABLES F inal Result [facility] [address] [place] [address], [place] [phone] * Hemoglobin A1c (03/28/2024 10:13 AM EST) Hemoglobin A1C 5.9 <6.5 % LAB CHEMISTRY METHOD 03/28/2024 2:[address] [facility] Mean Bld Glu Estim. 123 mg/dL LAB CHEMISTRY METHOD 03/28/2024 2:[address] [facility] Blood Venous blood specimen / Unknown Venipuncture / Unknown 03/28/2024 10:13 AM EST 03/28/2024 10:13 AM EST us Camilo Farrell MD LAB BLOOD ORDERABLES F inal Result [facility] [address] [place] [address], [place] [phone] * (ABNORMAL) Comprehensive metabolic panel (03/28/2024 10:13 [...] [facility] Comment:Calculation based on the Chronic [...] MD LAB BLOOD ORDERABLES F inal Result [facility] [address] [place] [address], [place] [phone] * Hepatitis C Screening (03/24/2023) [facility] Hepatitis C Screening abstracted us Historical Provider HEALTH MAINTENANCE Final Result from Last 3 Months or Most Recently Relevant to Health Maintenance Insurance Advance Directives Documents on File Type Date Recorded Patient Curriculum Specialist Expl anation Health Care Decision (hx) 07/20/2023 HE ALTH CARE PROXY Health Care Decision (hx) 07/20/2023 HE ALTH CARE PROXY Health Care Decision (hx) 07/20/2023 HE ALTH CARE PROXY Care Teams Moving Picture Producer Relationship Specialty Start Date End Date Adithya Johnson [address] [place] [address] MANJINDER Pedraza [id number] PCP - General Internal Medicine 06/22/24
--- OUTSIDE RECORDS SUMMARY | 2025-02-26 11:43 | XMS_ITS | Clinical Summary ---
Author Organization [facility] Address [address] [place] [address] Care Team Providers Care Head Of Housekeeping Name Role Phone Unavailable Primary Care Provider [...] 01/16/2022 01/17/2012, 10/24/2006 COVID-19 Vaccine ( season) 2024 07/14/2020, 06/24/2020 Influenza Vaccine (#1) 2024 9, [...] Personal/Family Self 1955 [address] [place] [address]
--- OUTSIDE RECORDS SUMMARY | 2025-02-26 11:44 | XMS_ITS | Clinical Summary ---
Author Organization [facility] Address [address] [place] [address] Care Team Providers Care Tea Tree Farm Worker Name Role Phone Unknown Primary Care Provider [phone] Allergies No known active allergies Medications PARoxetine [...] 2 Active elvitegravir-cob icistat-emtricit abine-tenofovir alafenamide (Genvoya) [phone] mg tablet Take 1 tablet by mouth [...] TO 2-3 WEEKS 2 Active nystatin (MYCOSTATIN) 476797 UNIT/GM cream APPLY CREAM TOPICALLY TWICE DAILY [...] handouts and recommended to visit [email or web address]/diseases-conditions/prediabetes/symptoms-causes/syc-2 11187 78 HIV (human immunodeficiency virus infection) 12/2016 [...] Vaccine (1 of 2) 1972 Colonoscopy 1998 RSV Vaccine 50 years and old er and Patients (1 - Risk 50-74 years 1-dose series) 2003 Hepatitis B Vaccines (1 of 3 - Risk 3-dose series) 2013 COVID-19 Vaccine (3 - Pfizer risk series) 08/11/2020 07/14/2020, 06/24/2020 DTaP/Tdap/Td Vaccines (2 - T d or Tdap) 01/16/2022 01/17/2012, 10/24/2006 Influenza Vaccine 11/23/2024 03/12/2019, , 02/13/2014, Additional history exists Pneumococcal Vaccines 50+ Completed 2018, 09/11/2018, 09/01/2007, Additional history exists Insurance Care Teams Tea Tree Farm Worker Relationship Specialty Start Date End Date Unknown Unknow Provider Address PCP - General 01/18/22
--- OUTSIDE RECORDS SUMMARY | 2025-02-26 11:44 | XMS_ITS | Encounter Summary ---
Author Organization [facility] Address [address] [place] [address] Care Team Providers Care Beater Engineer Helper Name Role Phone Unknown Primary Care Provider Encounter Details Date Type Department Care Team (Late st Contact Info) Description 05/24/2022 Telephone [facility] [address] [place] [address] Keven Alaniz PA [address] [place], [place] [phone] Social History Tobacco Use Types Packs/Day Years [...] on filedocumented in this encounter Care Teams Beater Engineer Helper Relationship Specialty Start Date End Date Unknown Unknow Provider Address PCP - General 01/18/22 documented as of this encounter
--- OUTSIDE RECORDS SUMMARY | 2025-02-26 11:44 | XMS_ITS | Patient Health Record ---
Author Organization [facility] Address [address] [address] Care Team Providers Care Real Estate Clerk Name Role Phone Jonathan Arredondo MD Primary Care Provider Unavail able Florentin Davis Unavailable [phone] Reason For Referral No Information Plan Of Treatment No Information Insurance Providers Payer Name Payer Address Payer Phone Subscriber Number Group Number Insured Name Patient Relationship to Insured Coverage Start Date Coverage End Date [employer] Medicare AE15 [address] [place] [phone] [id number] Hugo Alejandro Self - patient is the insured 6
[2025-02-26 12:14] LABS: MANUAL DIFF FLAG NO
[2025-02-26 12:22] LABS: Hematocrit 44.9 % (42.0-52.0); Hemoglobin 14.6 g/dl (14.0-18.0); Imm Gran Abs Auto 0.02 X10*3/uL (0.00-0.03); Imm Gran Pct Auto 0.3 % (0.0-0.4); Lymphocytes Absolute Auto 2.6 X10*3/uL (1.2-4.9); Mean Corpuscular HGB Conc 32.5 g/dl (31.0-36.0); Mean Corpuscular Hemoglobin 27.5 pg (27.0-33.0); Mean Corpuscular Volume 84.7 fL (80.0-98.0); NRBC Abs Auto 0.000 X10*3/uL (0.0-0.012); NRBC Pct Auto 0.0 /100WBC (0.0-0.2); Platelet Count 203 X10*3/uL (160-400); Red Blood Count 5.30 X10*6/uL (4.60-5.80); White Blood Count 7.5 X10*3/uL (4.8-10.8)
[2025-02-26 12:50] LABS: Alanine Aminotransferase 54 U/L (0-40); Albumin Level 4.6 g/dL (3.5-5.0); Alkaline Phosphatase 93 U/L (39-117); Anion Gap 11 (12-20); Aspartate Amino Transferase 106 U/L (5-37); Blood Urea Nitrogen 18 mg/dL (9-16); Calcium 9.5 mg/dL (8.4-10.2); Carbon Dioxide 22 mmol/L (22-29); Chloride 108 mmol/L (96-108); Cholesterol 193 mg/dL (<200); Estimated Glomerular Filt Rate > 60; HDL Cholesterol 35 mg/dL (>40); Potassium 3.9 mmol/L (3.3-5.1); Sodium 137 mmol/L (135-145); Total Protein 7.7 g/dL (6.5-8.0); Triglycerides 224 mg/dL (<150); Uric Acid 3.6 mg/dL (3.4-7.0)
[2025-02-28 11:54] LABS: HIV RNA PCR Qn Copies 873 copies/mL (NOT DETECTED); HIV RNA PCR Qn Log Copies 2.94 (NOT DETECTED)
[2025-03-03 17:48] LABS: Absolute CD3 Count 2550 cells/uL (840-3060); Absolute CD8 Count 1273 cells/uL (180-1170); Percent CD3 Cells 86 % (57-85); Percent CD8 Cells 43 % (12-42)
== END 2025-02-26 10:05 | disposition home or self-care (01) ==
LOC: HO.HHCL 10:04
PROVIDERS: Student in an Organized Health Care Education/Training Program; PCP Internal Medicine; Referring Provider Internal Medicine; Visit Provider Internal Medicine
DX: E11.9 Type 2 diabetes mellitus without complications (principal); Z21 Asymptomatic human immunodeficiency virus [HIV] infection status
CPT/HCPCS: 36415; 80053; 80061; 83036; 84550; 85025; 86359; 86360; 87536

== ENCOUNTER 2025-02-28 13:02 | Outpatient (REF) | payer MEDICARE, SELFPAY ==
--- NOTE | ~2025-02-28 | XR_ITS ---
EXAMINATION: XR LUMBOSACRAL SPINE CLINICAL INFORMATION: ongoing bildline lumbar spine pain with pain radiating down L leg COMPARISON: None available. TECHNIQUE: Three views of the lumbosacral spine. FINDINGS: 5 lumbar type vertebral bodies. Vertebral body heights are maintained. No evidence of acute fracture or spinal listhesis. Multilevel mild disc and facet degenerative changes.. SI joints are intact. No suspicious soft tissue calcifications. Phleboliths in the pelvis. Vascular calcifications present. XR/XR lumbar spine 2-3V IMPRESSION: No radiographic evidence of acute osseous findings. Mild lumbar spondylosis. Electronically signed by: Lauro Salas MD 02/28/2025 04:06 PM [facility]
--- OUTSIDE RECORDS SUMMARY | 2025-02-28 15:55 | XMS_ITS | Clinical Summary ---
Author Organization [facility] Address [address] [place] [address] Care Team Providers Care Utility Pipe Layer Name Role Phone Unavailable Primary Care Provider [...] Personal/Family Self 1955 [address] [place] [address]
--- OUTSIDE RECORDS SUMMARY | 2025-02-28 15:55 | XMS_ITS | Clinical Summary ---
Author Organization [employer] Address [address] [place] [address] Care Team Providers Care Manager College Name Role Phone Adithya Johnson Primary Care Provide r Allergies No known active allergies Medications acetaminophen (TYLENOL) 500 mg tablet Take 2 tablets (1,000 mg total) by mouth every 8 (eight) hours if needed. 4 Active elvitegravir-cob icistat-emtricit abine-tenofovir alafenamide (Genvoya) [phone] mg per tablet Take 1 tablet by [...] New onset type 2 diabetes me llitus ([facility] V24, [facility] V28) 03/27/2024 Other hyperlipidemia 03/27/2024 Asymptomatic HIV infection, with no history of HIV-related illness ([facility] V24, [facility] V28) 03/27/2024 History of hepatitis C 03/27/2024 Overview (03/27/2024): Completed treatment course. Viral loads have been negative Primary osteoarthritis of left knee 02/22/2023 Overview (03/27/2024): S/p left knee total replacement june 2023 Stage 3a chronic kidney disease ([facility] V24, S/[facility] V28) 11/12/2022 Transaminitis 11/12/2022 Chronic [...] Pt given handouts and recommended to visit [email or web address]/diseases-[email or web address]/symptoms-causes/syc-[email or web address] 89878 78 Last Assessment & Plan: Patient advised [...] Pt given handouts and recommended to visit [email or web address]://[email or web address]/diseases-conditions/prediabetes/symptoms-causes/[facility]-2 84154 78 Overweight (BMI 25.0-29.9) 07/01/2016 1 05/28/2023 [...] 0.5mL (Fluad) 63yo and olde r 03/24/2023 [employer]s SARS-CoV-2 COVID-19, mRNA, LNP-S, preservative free 07/14/2020,06/24/2020 [...] forehead 2020 HIV (human immunodeficiency virus infection) ([facility] V24, [facility] V28) Colon polyp Social History [...] care for your loved ones. For example, maternal child nurse or elderly care for an [...] PM EDT Office Visit Orthopedic Surgery [facility] [address] [facility] [address] [place] [address] Adithya Rubio MD [address] [address] Health Maintenance Due Date Last Done Comments [...] this topic Medical Devices Implanted Type Area Veterinary Parasitologist Device Identifier Shelf Expiration Date Model / [...] Maintenance Results * COLONOSCOPY Anesthesia - MAC; [email or web address] ENDOSCOPY (06/25/2024 3:28 PM EST) Anatomical Region [...] PRN. Narrative 06/25/2024 3:[address] [facility] GI Patient Name: Hugo Alejandro Procedure [...] malignant neoplasm of colon CPT copyright 2020 [employer]. All rights reserved. The codes documented in this report are preliminary and upon clerical adjudicator review may be revised to meet current compliance requirements. Hector Pradhan MD 06/25/2024 3:26:15 PM This report has been signed electronically.Hector Pradhan MD Number of Addenda: 0 Note Initiated On: 06/25/2024 2:52 PM Scope In: Scope Out: Endoscopy Department at [facility] - [address] [place] [phone] Procedure Note Hector Pradhan MD - 06/25/2024 [facility] GI Patient Name: Hugo Alejandro Procedure [...] for malignantneoplasm of colon CPT copyright 2020 [employer]. All rights reserved. The codes documented in this report are preliminary and upon clerical adjudicator reviewmay be revised to meet current compliance requirements. Hector Pradhan MD 06/25/2024 3:26:15 PM This report has been signed electronically.Hector Pradhan MD Number of Addenda: 0 Note Initiated On: 06/25/2024 2:52 PM Scope In: Scope Out: Endoscopy Department at [facility] - [address] [place] [phone] IMPRESSION: - Diverticulosis in the left colon. [...] mg/dL LAB CHEMISTRY METHOD 03/28/2024 12:33 PM [facility] Triglycerides 252(H) 0 - 150 mg/dL LAB CHEMISTRY METHOD 03/28/2024 12:33 PM [facility] HDL 36(L) >=40 mg/dL LAB CHEMISTRY METHOD 03/28/2024 12:33 PM [facility] LDL Calculated 159(H) 0 - 100 mg/dL LAB CHEMISTRY METHOD 03/28/2024 12:33 PM [facility] VLDL Cholesterol Chip 50.4 mg/dL LAB CHEMISTRY METHOD 03/28/2024 12:33 PM [facility] Non HDL Chol. (LDL+VLDL) 209(H) <145 mg/dL LAB CHEMISTRY METHOD 03/28/2024 12:33 PM [facility] Chol/HDL Ratio 6.8(H) 0.0 - 4.4 LAB CHEMISTRY METHOD 03/28/2024 12:33 PM [facility] Blood Venous blood specimen / Unknown Venipuncture / Unknown 03/28/2024 10:13 AM EST 03/28/2024 10:13 AM EST Camilo Farrell MD LAB BLOOD ORDERABLES F inal Result [facility] [address] [place] [address], [place] [phone] * (ABNORMAL) Microalbumin creatinine urine ratio (03/28/2024 10:13 AM EST) Creatinine, Urine 200.0 mg/dL LAB CHEMISTRY METHOD 03/28/2024 1:06 PM [facility] Microalb, Ur 67.1(H) 0.0 - 29.0 mg/L LAB CHEMISTRY METHOD 03/28/2024 1:06 PM [facility] Microalb/Crea t Ratio 34(H) <30 mg/g creat LAB CHEMISTRY METHOD 03/28/2024 1:06 PM [facility] Urine Urine specimen obtained by clean catch procedure / Unknown Non-blood Collection / Unknown 03/28/2024 10:13 AM EST 03/28/2024 10:13 AM EST Camilo Farrell MD LAB URINE ORDERABLES F inal Result [facility] [address] [place] [address], [place] [phone] * Hemoglobin A1c (03/28/2024 10:13 AM EST) Hemoglobin A1C 5.9 <6.5 % LAB CHEMISTRY METHOD 03/28/2024 2:08 PM [facility] Mean Bld Glu Estim. 123 mg/dL LAB CHEMISTRY METHOD 03/28/2024 2:08 PM [facility] Blood Venous blood specimen / Unknown Venipuncture / Unknown 03/28/2024 10:13 AM EST 03/28/2024 10:13 AM EST us Camilo Farrell MD LAB BLOOD ORDERABLES F inal Result [facility] [address] [place] [address], [place] [phone] * (ABNORMAL) Comprehensive metabolic panel (03/28/2024 10:13 AM EST) Sodium 136 133 - 145 mmol/L LAB CHEMISTRY METHOD 03/28/2024 12:33 PM [facility] Potassium 4.1 3.5 - 5.5 mmol/L LAB CHEMISTRY METHOD 03/28/2024 12:33 PM [facility] Chloride 106 96 - 110 mmol/L LAB CHEMISTRY METHOD 03/28/2024 12:33 PM [facility] CO2 20(L) 21 - 32 mmol/L LAB CHEMISTRY METHOD 03/28/2024 12:33 PM [facility] Anion Gap 10 3 - 11 LAB CHEMISTRY METHOD 03/28/2024 12:33 PM [facility] Glucose 125(H) 70 - 100 mg/dL LAB CHEMISTRY METHOD 03/28/2024 12:33 PM [facility] BUN 19 5 - 25 mg/dL LAB CHEMISTRY METHOD 03/28/2024 12:33 PM [facility] Creatinine 1.27 0.70 - 1.30 mg/dL LAB CHEMISTRY METHOD 03/28/2024 12:33 PM [facility] eGFR 61 >=60 mL/min/1. 73m2 LAB CHEMISTRY METHOD 03/28/2024 12:33 PM [facility] Comment:Calculation based on the Chronic Kidney Disease Epidemiology Collaboration (CKD-EPI) equation refit without adjustment for race. BUN/Creatinine Ratio 15.0 LAB CHEMISTRY METHOD 03/28/2024 12:33 PM [facility] Calcium 9.8 8.5 - 10.5 mg/dL LAB CHEMISTRY METHOD 03/28/2024 12:33 PM [facility] AST (SGOT) 77(H) 10 - 42 unit/L LAB CHEMISTRY METHOD 03/28/2024 12:33 PM [facility] ALT (SGPT) 45 10 - 60 unit/L LAB CHEMISTRY METHOD 03/28/2024 12:33 PM [facility] Alkaline Phosphatase 99 42 - 121 unit/L LAB CHEMISTRY METHOD 03/28/2024 12:33 PM [facility] Total Protein 7.7 6.0 - 8.0 g/dL LAB CHEMISTRY METHOD 03/28/2024 12:33 PM [facility] Albumin 4.0 3.2 - 5.0 g/dL LAB CHEMISTRY METHOD 03/28/2024 12:33 PM [facility] Total Bilirubin 0.5 0.0 - 1.4 mg/dL LAB CHEMISTRY METHOD 03/28/2024 12:33 PM [facility] Blood Venous blood specimen / Unknown Venipuncture / Unknown 03/28/2024 10:13 AM EST 03/28/2024 10:13 AM EST us Camilo Farrell MD LAB BLOOD ORDERABLES F inal Result [facility] [address] [place] [address], [place] [phone] * Hepatitis C Screening (03/24/2023) [facility] Hepatitis C Screening abstracted us Historical Provider HEALTH MAINTENANCE Final Result from Last 3 Months or Most Recently Relevant to Health Maintenance Insurance Advance Directives Documents on File Type Date Recorded Patient Director Of Manufacturing Operations Expl anation Health Care Decision (hx) 07/20/2023 HE ALTH CARE PROXY Health Care Decision (hx) 07/20/2023 HE ALTH CARE PROXY Health Care Decision (hx) 07/20/2023 HE ALTH CARE PROXY Care Teams Manager College Relationship Specialty Start Date End Date Adithya Johnson [address] [place] [address] MANJINDER Pedraza [id number] PCP - General Internal Medicine 06/22/24
--- OUTSIDE RECORDS SUMMARY | 2025-02-28 15:55 | XMS_ITS | Clinical Summary ---
Author Organization [facility] Address [address] [place] [address] Care Team Providers Care Loss Prevention Analyst Name Role Phone Unknown Primary Care Provider [phone] Allergies No known active allergies Medications PARoxetine [...] 2 Active elvitegravir-cob icistat-emtricit abine-tenofovir alafenamide (Genvoya) [phone] mg tablet Take 1 tablet by mouth [...] TO 2-3 WEEKS 2 Active nystatin (MYCOSTATIN) 263228 UNIT/GM cream APPLY CREAM TOPICALLY TWICE DAILY [...] handouts and recommended to visit [email or web address]/diseases-conditions/prediabetes/symptoms-causes/syc-2 00696 78 HIV (human immunodeficiency virus infection) 12/2016 [...] 09/01/2007, Additional history exists Insurance Care Teams Loss Prevention Analyst Relationship Specialty Start Date End Date Unknown Unknow Provider Address PCP - General 01/18/22
== END 2025-02-28 13:03 | disposition home or self-care (01) ==
LOC: HO.XRAY 13:02
PROVIDERS: PCP Internal Medicine
DX: M54.41 Lumbago with sciatica, right side (principal); M54.42 Lumbago with sciatica, left side; G89.29 Other chronic pain
CPT/HCPCS: 72100

== ENCOUNTER → 2025-02-28 13:08 | Outpatient (BNV) | payer MEDICARE, SELFPAY | PROVIDERS: PCP Internal Medicine; Visit Provider Radiology Diagnostic Ultrasound | DX: M47.816 Spondylosis without myelopathy or radiculopathy, lumbar region (principal) | CPT/HCPCS: 72100 ==

== ENCOUNTER 2025-04-23 09:10 | Outpatient (REF) | payer MEDICARE, SELFPAY ==
--- OUTSIDE RECORDS SUMMARY | 2025-04-23 11:32 | XMS_ITS | Clinical Summary ---
Author Organization [facility] Address [address] [place] [address] Care Team Providers Care Wildland Firefighter Name Role Phone Unknown Primary Care Provider [phone] Allergies No known active allergies Medications PARoxetine [...] 2 Active elvitegravir-cob icistat-emtricit abine-tenofovir alafenamide (Genvoya) [phone] mg tablet Take 1 tablet by mouth [...] TO 2-3 WEEKS 2 Active nystatin (MYCOSTATIN) 601390 UNIT/GM cream APPLY CREAM TOPICALLY TWICE DAILY [...] 5.4 07/06/2017 The 10-year ASCVD risk score (Natoma DC Jr., et al., 2013) is: 16% Values used to calculate the score: Age: 64 years Sex: Male Is Non- : No Diabetic: No Tobacco smoker: No Systolic Blood Pressure: 120 mmHg Is BP treated: Yes HDL Cholesterol: 51 mg/dL Total Cholesterol: 243 mg/dL Pt given handouts and recommended to visit [email or web address]/diseases-[email or web address]/symptoms-causes/syc-2 75524 78 HIV (human immunodeficiency virus infection) 12/2016 [...] 2018, 09/11/2018, 09/01/2007, Additional history exists Insurance 60 [facility] MANJINDER [employer] MGD MEDICARE Care Teams Wildland Firefighter Relationship Specialty Start Date End Date Unknown Unknow Provider Address PCP - General 01/18/22
--- OUTSIDE RECORDS SUMMARY | 2025-04-23 11:32 | XMS_ITS | Clinical Summary ---
Author Organization [facility] Prior to 09/22/24 Address [address] [place] [address] Care Team Providers Care Pump Operator Name Role Phone Unavailable Primary Care [...] Personal/Family Self 1955 [address] [place] [address]
--- OUTSIDE RECORDS SUMMARY | 2025-04-23 11:32 | XMS_ITS | Clinical Summary ---
Author Organization [employer] Address [address] [place] [address] Care Team Providers Care Reel Film Inspector Name Role Phone Adithya Johnson Primary Care Provide r Allergies No known active allergies Medications acetaminophen (TYLENOL) 500 mg tablet Take 2 tablets (1,000 mg total) by mouth every 8 (eight) hours if needed. 4 Active elvitegravir-cob icistat-emtricit abine-tenofovir alafenamide (Genvoya) [phone] mg per tablet Take 1 tablet by [...] Pt given handouts and recommended to visit [email or web address] Last Assessment & Plan: Patient advised [...] Pt given handouts and recommended to visit [email or web address] Overweight (BMI 25.0-29.9) 07/01/2016 1 05/28/2023 [...] Encounters Date Type Department Care Team Description 04/08/2025 Telephone Orthopedic Surgery - [place] [id number] [address] Flavia Hilario MA from Last 3 Months Immunizations Immunization Administration Dates Next Due Influenza trivalent, 0.5mL (Fluad) 65yo and olde r 03/24/2023 [employer] SARS-CoV-2 COVID-19, mRNA, LNP-S, preservative free 07/14/2020,06/24/2020 Pneumococcal conjugate 13 va lent (Prevnar 13, PCV13) 2mo and older 09/11/2018 Pneumococcal polysaccharide 23 valent (Pneumovax 23) 2yo and older 03/12/2019,09/01/2007 Tdap Tetanus diptheria acell ular pertussis (Boostrix; Adacel) 7yo and older 03/22/2023,01/17/2012 Surgical History Surgery Date Site/Laterality Comments COLONOSCOPY PROCEDURE: HISTORICAL COLONOSCOPY; COMMENT: 2020 per patient OTHER SURGICAL HISTORY PROCEDURE: HISTORY [...] forehead 2020 HIV (human immunodeficiency virus infection) ([facility] V24, [facility] V28) Colon polyp Social History [...] ed Within the last 3 months, ho ca many times did you visit the emergency [...] for your loved ones. For example, child caregiver or elderly care for an older adult? [...] Orientation Straight 06/22/2024 2: 01 PM EST Last Filed Vital Signs Vital Sign Reading [...] PM EDT Office Visit Orthopedic Surgery - [place] [address] [facility] [address] [place] [address] Adithya Rubio MD [address] [address] Health Maintenance Due Date Last Done Comments [...] this topic Medical Devices Implanted Type Area Dental Professional Device Identifier Shelf Expiration Date Model / [...] PM EST [facility] Patient Name: Hugo Alejandro Procedure Date: [...] malignant neoplasm of colon CPT copyright 2020 [employer]. All rights reserved. The codes documented in this report are preliminary and upon certified medical records coder review may be revised to meet current compliance requirements. Hector Pradhan MD 06/25/2024 3:26:15 PM This report has been signed electronically.Hector Pradhan MD Number of Addenda: 0 Note Initiated On: 06/25/2024 2:52 PM Scope In: Scope Out: Endoscopy Department at [facility] - [address] [place] [phone] Procedure Note Hector Pradhan MD - 06/25/2024 [facility] Patient Name: Hugo Alejandro Procedure Date: [...] for malignantneoplasm of colon CPT copyright 2020 [employer]. All rights reserved. The codes documented in this report are preliminary and upon certified medical records coder reviewmay be revised to meet current compliance requirements. Hector Pradhan MD 06/25/2024 3:26:15 PM This report has been signed electronically.Hector Pradhan MD Number of Addenda: 0 Note Initiated On: 06/25/2024 2:52 PM Scope In: Scope Out: Endoscopy Department at [facility] - [address] [place] [phone] IMPRESSION: - Diverticulosis in the left colon. [...] mg/dL LAB CHEMISTRY METHOD 03/28/2024 12:33 PM [facility] Triglycerides 252(H) 0 - 150 mg/dL LAB CHEMISTRY METHOD 03/28/2024 12:33 PM EST [facility] HDL 36(L) >=40 mg/dL LAB CHEMISTRY METHOD 03/28/2024 12:33 PM EST [facility] LDL Calculated 159(H) 0 - 100 mg/dL LAB CHEMISTRY METHOD 03/28/2024 12:33 PM [facility] VLDL Cholesterol Chip 50.4 mg/dL LAB CHEMISTRY METHOD 03/28/2024 12:33 PM [facility] Non HDL Chol. (LDL+VLDL) 209(H) <145 mg/dL LAB CHEMISTRY METHOD 03/28/2024 12:33 PM [facility] Chol/HDL Ratio 6.8(H) 0.0 - 4.4 LAB CHEMISTRY METHOD 03/28/2024 12:33 PM [facility] Blood Venous blood specimen / Unknown Venipuncture / Unknown 03/28/2024 10:13 AM EST 03/28/2024 10:13 AM EST us Camilo Farrell MD LAB BLOOD ORDERABLES F inal Result Performing Organization Address City/[facility]/ZIP Co de Phone Number [facility] [address] [place] [address], [place] [phone] * (ABNORMAL) Microalbumin creatinine urine ratio (03/28/2024 10:13 AM EST) Creatinine, Urine 200.0 mg/dL LAB CHEMISTRY METHOD 03/28/2024 1:06 PM [facility] Microalb, Ur 67.1(H) 0.0 - 29.0 mg/L LAB CHEMISTRY METHOD 03/28/2024 1:06 PM [facility] Microalb/Crea t Ratio 34(H) <30 mg/g creat LAB CHEMISTRY METHOD 03/28/2024 1:06 PM [facility] Urine Urine specimen obtained by clean catch procedure / Unknown Non-blood Collection / Unknown 03/28/2024 10:13 AM EST 03/28/2024 10:13 AM EST us Camilo Farrell MD LAB URINE ORDERABLES F inal Result [facility] [address] [place] [address], [place] [phone] * Hemoglobin A1c (03/28/2024 10:13 AM EST) Hemoglobin A1C 5.9 <6.5 % LAB CHEMISTRY METHOD 03/28/2024 2:08 PM [facility] Mean Bld Glu Estim. 123 mg/dL LAB CHEMISTRY METHOD 03/28/2024 2:08 PM [facility] Blood Venous blood specimen / Unknown Venipuncture / Unknown 03/28/2024 10:13 AM EST 03/28/2024 10:13 AM EST us Camilo Farrell MD LAB BLOOD ORDERABLES F inal Result [facility] [address] [place] [address], * (ABNORMAL) Comprehensive metabolic panel (03/28/2024 10:13 AM EST) [facility] Sodium 136 133 - 145 mmol/L LAB CHEMISTRY METHOD 03/28/2024 12:33 PM [facility] Potassium 4.1 3.5 - 5.5 mmol/L LAB CHEMISTRY METHOD 03/28/2024 12:33 PM [facility] Chloride 106 96 - 110 mmol/L LAB CHEMISTRY METHOD 03/28/2024 12:33 PM [facility] CO2 20(L) 21 - 32 mmol/L LAB CHEMISTRY METHOD 03/28/2024 12:33 PM [facility] Anion Gap 10 3 - 11 LAB CHEMISTRY METHOD 03/28/2024 12:33 PM [facility] Glucose 125(H) 70 - 100 mg/dL LAB CHEMISTRY METHOD 03/28/2024 12:33 PM [facility] BUN 19 5 - 25 mg/dL LAB CHEMISTRY METHOD 03/28/2024 12:33 PM [facility] Creatinine 1.27 0.70 - 1.30 mg/dL LAB CHEMISTRY METHOD 03/28/2024 12:33 PM [facility] eGFR 61 >=60 mL/min/1. 73m2 LAB CHEMISTRY METHOD 03/28/2024 12:33 PM [facility] Comment:Calculation based on the Chronic Kidney Disease Epidemiology Collaboration (CKD-EPI) equation refit without adjustment for race. BUN/Creatinine Ratio 15.0 LAB CHEMISTRY METHOD 03/28/2024 12:33 PM [facility] Calcium 9.8 8.5 - 10.5 mg/dL LAB CHEMISTRY METHOD 03/28/2024 12:33 PM [facility] AST (SGOT) 77(H) 10 - 42 unit/L LAB CHEMISTRY METHOD 03/28/2024 12:33 PM [facility] ALT (SGPT) 45 10 - 60 unit/L LAB CHEMISTRY METHOD 03/28/2024 12:33 PM [facility] Alkaline Phosphatase 99 42 - 121 unit/L LAB CHEMISTRY METHOD 03/28/2024 12:33 PM [facility] Total Protein 7.7 6.0 - 8.0 g/dL LAB CHEMISTRY METHOD 03/28/2024 12:33 PM [facility] Albumin 4.0 3.2 - 5.0 g/dL LAB CHEMISTRY METHOD 03/28/2024 12:33 PM [facility] Total Bilirubin 0.5 0.0 - 1.4 mg/dL LAB CHEMISTRY METHOD 03/28/2024 12:33 PM [facility] Blood Venous blood specimen / Unknown Venipuncture / Unknown 03/28/2024 10:13 AM EST 03/28/2024 10:13 AM EST us Camilo Farrell MD LAB BLOOD ORDERABLES F inal Result [facility] [address] [place] [address], * Hepatitis C Screening (03/24/2023) Hepatitis C Screening abstracted us Historical Provider HEALTH MAINTENANCE Final Result from Last 3 Months or Most Recently Relevant to Health Maintenance Insurance Advance Directives Documents on File Type Date Recorded Patient Paper Cone Grader Expl anation Health Care Decision (hx) 07/20/2023 HE ALTH CARE PROXY Health Care Decision (hx) 07/20/2023 HE ALTH CARE PROXY Health Care Decision (hx) 07/20/2023 HE ALTH CARE PROXY Care Teams Reel Film Inspector Relationship Specialty Start Date End Date Adithya Johnson: [phone] [address] [place] [address] MANJINDER Pedraza [id number] PCP - General Internal Medicine 06/22/24
[2025-04-23 12:11] LABS: Alanine Aminotransferase 55 U/L (0-40); Albumin Level 4.7 g/dL (3.5-5.0); Alkaline Phosphatase 91 U/L (39-117); Anion Gap 13 (12-20); Aspartate Amino Transferase 79 U/L (5-37); Blood Urea Nitrogen 20 mg/dL (9-16); Calcium 9.9 mg/dL (8.4-10.2); Carbon Dioxide 20 mmol/L (22-29); Chloride 109 mmol/L (96-108); Estimated Glomerular Filt Rate 57; Potassium 3.7 mmol/L (3.3-5.1); Sodium 138 mmol/L (135-145); Total Protein 7.7 g/dL (6.5-8.0)
[2025-04-24 16:43] LABS: HIV RNA PCR Qn Copies 242 copies/mL (NOT DETECTED); HIV RNA PCR Qn Log Copies 2.38 (NOT DETECTED)
== END 2025-04-23 09:11 ==
LOC: HO.HHCL 09:10
PROVIDERS: PCP Internal Medicine; Referring Provider Student in an Organized Health Care Education/Training Program; Visit Provider Student in an Organized Health Care Education/Training Program
DX: Z21 Asymptomatic human immunodeficiency virus [HIV] infection status (principal)
CPT/HCPCS: 36415; 80053; 87536